=== PATIENT | female | born 1940 | race Caucasian/White ===

== ENCOUNTER 2017-01-06 23:06 | Emergency (ER) | payer MEDICARE, BC ==
[2017-01-06] MEDS ORDERED: Nitroglycerin 0.3 MG Tab.SL SL PRN (23:32)
[2017-01-06] MEDS ORDERED: LORazepam 2 MG/ML MDV IVPUSH ONE (23:33)
[2017-01-06] MEDS ORDERED: Nitroglycerin 0.4 MG Tab.SL SL ONE (23:35)
[2017-01-06] MEDS ORDERED: LORazepam 2 MG/ML MDV ONE (23:51)
[2017-01-07] MEDS ORDERED: Furosemide 40 MG/4 ML VIAL ONE (00:24)
[2017-01-07] MEDS ORDERED: Furosemide 40 MG/4 ML VIAL IVPUSH ONE (00:25)
[2017-01-07] MEDS ORDERED: Isosorbide Mononitrate 30 MG Tab.ER PO SCH (00:45)
--- NOTE | 2017-01-07 10:05 | ER ---
DATE SEEN: 01/06/2017 TIME SEEN: The patient was seen at 2315 hours. CHIEF COMPLAINT: Shortness of breath. HISTORY OF PRESENT ILLNESS: The patient lives at home with her who is an invalid. 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 She had nebs 4 times a day and used an inhaler two times a day yesterday. Has increased heart rate. She had flashes of chest discomfort. Denies cough or fever. She states she has a defect in her heart because of her PVCs. She denies swelling of her ankles. Denies thyroid problems. PAST MEDICAL HISTORY: Significant for hypertension, insulin dependent diabetes, gout. She is on anticoagulants. Has depression. The patient on milnacipran; question if she has fibromyalgia. Not had an echo of her heart for a year. Known COPD, congestive heart failure, cardiomyopathy atrial fibrillation, and type 2 diabetes. Her medications suggest she has gout, is using allopurinol daily. ALLERGIES: Oxycodone and penicillin. MEDICATIONS: 1. Allopurinol 100 mg daily. 2. Albuterol. 3. Carvedilol 25 mg b.i.d. 4. Dulcolax p.r.n. 5. Digoxin 125 mcg daily. 6. Vitamin B12. 7. Gabapentin. 8. Ezetimibe (Zetia). 9. Insulin. 10.Milnacipran (Savella) 50 mg b.i.d. (suggests fibromyalgia). 11.Mirtazapine 30 mg daily. 12.Simvastatin 80 mg daily. 13.Prednisone 20 mg b.i.d. 14.Potassium chloride 20 mEq b.i.d. 15.Valsartan 20 mg daily. 16.Torsemide 20 mg daily. 17.Sitagliptin 50 mg daily. 18.Warfarin 5 mg Saturday, Saturday, Saturday, , and Saturday, otherwise 2.5 mg Saturday and Saturday. Discussed that she gets very anxious and sometimes wonders if she is going to because she cannot , her really depends on her. She has 24 coverage for . Does not get time off. She has people come help with her house cleaning and some other chores, but does not have any day off from her caregiving activities. She has had 20 units of long-acting insulin a day and 30 units short-acting insulin noon and suppertime. Is very obese. Weighs 230 pounds. PHYSICAL EXAMINATION: VITAL SIGNS: Blood pressure 160/90, heart rate 98 and irregular, respirations 18, oxygen saturation 100%, oxygen flow rate 3, and temperature 36.9 degrees. GENERAL: The patient is mildly dyspneic and anxious. No flushing in her face. She is markedly obese, in [id number] distress. Immediate sublingual nitroglycerin given to diminish pulmonary hypertension, anxiety, and improve her coronary artery circulation. This brought her blood pressure down to 154/75, and then before departure it was 147/68. HEENT: PERRLA intact. Pharynx without abnormality. NECK: No bruits in neck. LUNGS: There are some rales, right greater than left posterior. HEART: S1, S2. No murmur. Sinus regular rhythm, 98. S1 is greater than S2. ABDOMEN: Soft. No guarding. No abdominal discomfort. No chest wall discomfort. EXTREMITIES: No linear vascular tenderness. No pedal edema. LABORATORY DATA: Stat EKG; atrial fibrillation, heart rate in the 90s, right bundle-branch block, occasional PVC, old anterior myocardial infarction with Q- waves noted in V1, V2. Chest x-ray reveals marked cardiomegaly. Transthoracic measurement is 243 cm, heart is 183 cm, well over 50% the bilateral chest diameter. No cephalization noted. Findings: 7400 white count, PMNs 70, lymphs 20, monos 6, 4% eosinophils, 13.2 hemoglobin, MCHC low at 31.4, and platelets 233,000. D-dimer qualitative was 522, not considered abnormal for age, using the rule multiplied by 10 for every 10 years of age. Complete metabolic panel is normal except for a CO2 slightly elevated at 30, GFR 49, glucose 215, sodium 141, potassium 4.2, chloride 103, BUN and creatinine ratio 20, BUN 22, and creatinine 1.1. TSH 2.2 is negative. Troponin 0.05, normal is less than 0.06. BNP is 100. ASSESSMENT: 1. Anxiety-induced increased sympathomimetic effect on the heart with coronary artery spasm and/or coronary narrowing with shortness of breath associated with mild pulmonary hypertension. 2. No clear evidence for congestive heart failure, congestive heart failure well controlled. 3. No metabolic abnormality. No negative troponin and no suggestion of myocardial infarction. The patient's status improved remarkably after the nitroglycerin was given. Her blood pressure came down. Anxiety diminished. She acknowledges she was really anxious and afraid she was going to . It is very possible that her anxiety has resulted in bronchospasm and increased pulmonary pressures and the nitroglycerin diminished that discomfort and shortness of breath that she experienced. PLAN: Tablet of 30 mg Imdur. The patient dismissed to follow up with doctor in 3 to 5 days. Trial of spironolactone to help remodel her cardiomyopathy. Currently, her congestive heart failure is very well controlled. With this, she will decrease her potassium one dose to 20 mEq orally daily and repeat BMP on return to the clinic. The patient's status dramatically improved with the nitroglycerin. She was pleased and plans to go home. Her daughter will pick her up and take her home. There is a wide pulse pressure on arrival, which was 102. This came down dramatically with the nitroglycerin with pulse pressure at that time to 79. She felt subjectively much better. I surmise the wide pulse pressure is a function of the cardiomyopathy. OTHER DIAGNOSES: 1. Atrial fibrillation. 2. Congestive heart failure, controlled. 3. Hypertension. 4. Cardiomegaly. 5. Atherosclerotic vascular disease and aortic stiffening, causing the hypertension and narrowing of the vessels. This puts her at risk for thrombosis, atherosclerotic vascular disease, and further coronary artery disease. /[id number] MICHEL/STEWART
--- NOTE | 2017-01-07 10:42 | CR ---
INDICATION: Short of breath. CHEST: An AP upright portable view of the chest was obtained 01/06/17 and compared with 08/11/16 and 02/10/16, revealing an appearance of parenchymal change infiltration at the left mid to lower lung field, which likely represents pneumonia. No definite pleural effusion was seen. Relatively poor inspiration is noted. The heart is enlarged with slightly tortuous calcified aorta. Overlying EKG leads are noted. Overlying snaps seen. IMPRESSION: 1. Findings suggest the possibility of pneumonia in the left mid to lower lung field. PA and lateral views may be helpful for confirmation as felt to be clinically necessary, with full inspiration, when clinically possible. 2. ASHD with cardiomegaly. 3. Possible COPD. 4. Exogenous obesity. MTDD
[2017-01-07 22:29] VITALS: BP 121/66
== END 2017-01-07 02:00 | disposition home or self-care (01) ==
LOC: FB.ED 23:06
DX: I25.111 Atherosclerotic heart disease of native coronary artery with angina pectoris with documented spasm (principal); I11.0 Hypertensive heart disease with heart failure; I50.9 Heart failure, unspecified; I48.2 Chronic atrial fibrillation; Z79.01 Long term (current) use of anticoagulants; J44.9 Chronic obstructive pulmonary disease, unspecified; E11.9 Type 2 diabetes mellitus without complications; Z79.4 Long term (current) use of insulin; Z79.899 Other long term (current) drug therapy; F32.9 Major depressive disorder, single episode, unspecified; Z88.5 Allergy status to narcotic agent; Z88.0 Allergy status to penicillin
CPT/HCPCS: 36415; 71010; 80053; 83605; 83880; 84443; 84484; 85025; 85379; A9270; J1940; J2060; 96374; 96375; 99284; 99285

== ENCOUNTER 2017-01-27 01:31 | Emergency (ER) | payer MEDICARE, BC, MEDICAID ==
[2017-01-27] MEDS ORDERED: Albuterol/Ipratropium 3.0-0.5 MG/3 ML Neb Soln NEB ONE (01:52)
--- NOTE | 2017-01-27 02:04 | EDM.PDOC ---
ED HISTORY OF PRESENT ILLNESS - General Chief Complaint: Respiratory Problem Stated Complaint: COUGH, WHEEZING Time Seen by Provider: 01/27/17 01:58 Source: Reports: Patient, Family - History of Present Illness INITIAL COMMENTS - FREE TEXT/NARRATIVE: 76 years old w f morbid obese, come to the ed due to worsening of sob since last Saturday. She was told at one time she has an enlarged heart. She noticed her feet are swelling up. She is an a water pill daily. She can walk only short distances. No CP no N/V/D or other medical acute issues. Symptom Onset Date: 01/24/17 Symptom Onset Time: 07:00 Timing/Duration: Reports: Day(s): Severity: moderate Location, General: Reports: chest Improves with: Reports: Medication Worsens with: Reports: Movement Associated Symptoms: Reports: denies other symptoms - Related Data Allergies/ADRs: Allergies Allergy/AdvReac Type Severity Reaction Status Date / Time oxycodone [Oxycodone] Allergy Hives Verified 01/27/17 01:42 Penicillins Allergy Hives Verified 01/27/17 01:42 phenylephrine Allergy Cannot Verified 01/27/17 01:42 Remember tropicamide Allergy Hives Verified 01/27/17 01:42 Home Meds: Home Meds Acetaminophen [Acetaminophen Extra Strength] 1,000 mg PO BID PRN 03/03/14 [ History] Allopurinol [Zyloprim] 100 mg PO DAILY 03/03/14 [History] Cyanocobalamin (Vitamin B12) [Vitamin B12] 1,000 mcg IM Q30D 03/03/14 [History] Ezetimibe [Zetia] 10 mg PO BEDTIME 03/03/14 [History] Gabapentin 900 mg PO BEDTIME 03/03/14 [History] Milnacipran [Savella] 50 mg PO BID 03/03/14 [History] Omeprazole 20 mg PO ACBRK 03/03/14 [History] Potassium Chloride 20 meq PO BID 03/03/14 [History] Simvastatin 80 mg PO BEDTIME 03/03/14 [History] SitaGLIPtin [Januvia] 50 mg PO DAILY 03/03/14 [History] Torsemide [Demadex] 20 mg PO DAILY 03/03/14 [History] Warfarin [Coumadin] 2.5 mg PO TUFR 03/03/14 [History] Bisacodyl [Dulcolax] 15 mg PO BEDTIME 05/19/14 [History] Mirtazapine [Remeron] 15 mg PO BEDTIME 05/19/14 [History] Nitroglycerin [Nitrostat] 0.4 mg SL Q5M PRN 05/19/14 [History] glipiZIDE [Glipizide] 5 mg PO BIDMEALS 12/14/14 [History] Carvedilol [Coreg] 25 mg PO BID 12/28/14 [History] Insulin Aspart [NovoLOG] 30 unit SQ BIDMEALS 12/28/14 [History] Insulin Aspart [Novolog Flexpen] 10 unit SQ ASDIRECTED 12/28/14 [History] Insulin Detemir [Levemir] 35 units SQ BID 12/28/14 [History] Warfarin [Coumadin] 5 mg PO SUMOWETHSA 12/29/14 [History] Albuterol [Proventil Neb Soln] 2.5 mg IH QID PRN 02/10/16 [History] Docusate Sodium 100 mg PO BEDTIME 02/10/16 [History] Valsartan 20 mg PO DAILY 02/10/16 [History] diphenhydrAMINE [Benadryl] 25 mg PO Q6H PRN 02/10/16 [History] Spironolactone [Aldactone] 25 mg PO DAILY #10 tablet 01/07/17 [Rx] Past Medical History HEENT History: Reports: Cataract, Impaired vision, Other (see below) Other HEENT History: States she has an eye disease balled "BEST". It affects her vision bilat, especially in her right eye. Is blind R eye. Cardiovascular History: Reports: Afib, Heart Failure, High cholesterol Respiratory History: Reports: Asthma, Pneumonia, recurrent Other Respiratory History: States she had pneumonia twice last year. 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 Hematologic History: Reports: Anemia, B12 deficiency - Past Surgical History HEENT Surgical History: Reports: Cataract surgery Other HEENT Surgeries/Procedures: L cataract surgery Cardiovascular Surgical History: Reports: Cardiac Ablation, Vascular surgery GI Surgical History: Reports: Appendectomy, Cholecystectomy Female Surgical History: Reports: Hysterectomy, Salpingo-oophorectomy, Tubal ligation Other Female Surgeries/Procedures: bladder repair, Neurological Surgical History: Reports: Lumbar spine Musculoskeletal Surgical History: Reports: Knee replacement, Shoulder surgery, Other (see below) Other Musculoskeletal Surgeries/Procedures:: States she has rods placed in her back, R knee replacement, R shoulder/rotator cuff, 3 L foot surgeries, R trigger finger surg x 3, 2 back surgeries. Social & Family History - Tobacco Use Smoking Status *Q: Never Smoker Second Hand Smoke Exposure: No - Caffeine Use Caffeine Use: Reports: Soda - Alcohol Use Days Per Week of Alcohol Use: 0 - Recreational Drug Use Recreational Drug Use: No - Living Situation & Occupation Living situation: Reports: ED ROS GENERAL - Review of Systems Review Of Systems: See Below Constitutional: Reports: no symptoms HEENT: Reports: No symptoms Respiratory: Reports: Shortness of Breath Cardiovascular: Reports: No symptoms Endocrine: Reports: no symptoms GI/Abdominal: Reports: No symptoms : Reports: no symptoms Musculoskeletal: Reports: no symptoms Skin: Reports: no symptoms Neurological: Reports: No Symptoms Psychiatric: Reports: No symptoms Hematologic/Lymphatic: Reports: no symptoms Immunologic: Reports: no symptoms ED EXAM, GENERAL - Physical Exam Exam: See Below Exam Limited By: Respiratory distress General Appearance: alert, WD/WN, moderate distress, obese Eye Exam: bilateral eye: normal inspection Ears: normal external exam Ear Exam: bilateral ear: auricle normal Nose: normal inspection, normal mucosa, no blood Throat/Mouth: Normal inspection, Normal lips, Normal gums Head: atraumatic, normocephalic Neck: normal inspection, supple, non-tender, full range of motion Respiratory/Chest: respiratory distress, wheezing, prolonged expiration Cardiovascular: normal peripheral pulses, irregularly irregular Peripheral Pulses: 2+: femoral (L), femoral (R) GI/Abdominal: normal bowel sounds, soft, non tender, no organomegaly (Female) Exam: Deferred Rectal (Female) Exam: Deferred Back Exam: normal inspection, full range of motion Extremities: normal inspection, normal range of motion, non-tender, no pedal edema, normal capillary refill Neurological: alert, oriented, CN II-XII intact, normal cognition, normal gait, normal reflexes, no motor/sensory deficits Psychiatric: normal affect, normal mood Skin Exam: Warm, Dry, Intact, Normal color, No rash Lymphatic: no adenopathy Course - Vital Signs Text/Narrative:: 76 years old w f morbid obese, come to the ed due to worsening of sob since last Saturday. She was told at one time she has an enlarged heart. She noticed her feet are swelling up. She is an a water pill daily. She can walk only short distances. No CP no N/V/D or other medical acute issues. PE: Expir wheezes Labs: WBC WNL, BNP 157 INR 3.4 CXR: NL HS no acute changes Impression: Asthma exacerbation Tx: Soraida Reexam: Improved Plan: D/C with instructions Last Recorded V/S: Last Vital Signs Temp 37.1 C 01/27/17 01:58 Pulse 91 01/27/17 01:58 Resp 26 H 01/27/17 01:58 BP 145/83 H 01/27/17 01:58 Pulse Ox 92 L 01/27/17 01:58 - Orders/Labs/Meds Orders: Active Orders 24 hr Category Date Time Status RT Aerosol Therapy [RC] ASDIRECTED Care 01/27/17 01:53 Active Chest 1V Frontal [CR] Stat Exams 01/27/17 01:52 Taken Labs: Laboratory Tests 01/27/17 01/27/17 01/27/17 Range/Units 02:00 02:05 02:05 WBC 10.6 (4.5-12.0) X10-3/uL RBC 4.54 (3.23-5.20) x10(6)uL Hgb 13.2 (11.5-15.5) g/dL Hct 40.0 (30.0-51.3) % MCV 88.1 (80-96) fL MCH 29.1 (27.7-33.6) pg MCHC 33.1 (32.2-35.4) g/dL RDW 14.3 (11.5-15.5) % Plt Count 215 (125-369) X10(3)uL MPV 8.6 (7.4-10.4) fL Neut % (Auto) 79.8 (46-82) % Lymph % (Auto) 10.6 L (13-37) % [place] % (Auto) 7.2 (4-12) % Eos % (Auto) 2 (1.0-5.0) % Baso % (Auto) 0 (0-2) % Neut # (Auto) 8.5 H (1.6-8.3) # Lymph # (Auto) 1.1 (0.6-5.0) # [place] # (Auto) 0.8 (0.0-1.3) # Eos # (Auto) 0.2 (0.0-0.8) # Baso # (Auto) 0.0 (0.0-0.2) # PT 34.2 H (8.7-11.1) INR 3.31 H (0.89-1.13) Sodium (135-145) mmol/L Potassium (3.5-5.3) mmol/L Chloride (100-110) mmol/L Carbon Dioxide (23-29) mmol/L BUN (8-23) mg/dL Creatinine (0.6-1.3) mg/dL Est Cr Clr Drug Dosing mL/min Estimated GFR (MDRD) (>60) BUN/Creatinine Ratio (9-20) Glucose (80-116) mg/dL Calcium (8.6-10.2) mg/dL Troponin I (0.02-0.06) NG/ML B-Natriuretic Peptide (0-100) pg/mL Urine Color Yellow (YELLOW) Urine Appearance Clear (CLEAR) Urine pH 5.0 (5.0-6.5) Ur Specific Logan 1.010 (1.010-1.025) Urine Protein Negative (NEGATIVE) mg/dL Urine Glucose (UA) Normal (NEGATIVE) mg/dL Urine Ketones Negative (NEGATIVE) mg/dL Urine Occult Blood Negative (NEGATIVE) Urine Nitrite Negative (NEGATIVE) Urine Bilirubin Negative (NEGATIVE) Urine Urobilinogen Normal (NEGATIVE) mg/dL Ur Leukocyte Esterase Negative (NEGATIVE) Urine RBC 0-5 (0) Urine WBC 0-5 (0) Ur Squamous Epith Cells Not seen (NS,R,O) Urine Bacteria Rare H (NS) 01/27/17 01/27/17 01/27/17 Range/Units 02:05 02:05 02:05 WBC (4.5-12.0) X10-3/uL RBC (3.23-5.20) x10(6)uL Hgb (11.5-15.5) g/dL Hct (30.0-51.3) % MCV (80-96) fL MCH (27.7-33.6) pg MCHC (32.2-35.4) g/dL RDW (11.5-15.5) % Plt Count (125-369) X10(3)uL MPV (7.4-10.4) fL Neut % (Auto) (46-82) % Lymph % (Auto) (13-37) % [place] % (Auto) (4-12) % Eos % (Auto) (1.0-5.0) % Baso % (Auto) (0-2) % Neut # (Auto) (1.6-8.3) # Lymph # (Auto) (0.6-5.0) # [place] # (Auto) (0.0-1.3) # Eos # (Auto) (0.0-0.8) # Baso # (Auto) (0.0-0.2) # PT (8.7-11.1) INR (0.89-1.13) Sodium 141 (135-145) mmol/L Potassium 3.9 (3.5-5.3) mmol/L Chloride 105 (100-110) mmol/L Carbon Dioxide 27 (23-29) mmol/L BUN 32 H D (8-23) mg/dL Creatinine 1.3 (0.6-1.3) mg/dL Est Cr Clr Drug Dosing 27.27 mL/min Estimated GFR (MDRD) 40 L (>60) BUN/Creatinine Ratio 24.6 H (9-20) Glucose 130 H D (80-116) mg/dL Calcium 10.0 (8.6-10.2) mg/dL Troponin I 0.07 H (0.02-0.06) NG/ML B-Natriuretic Peptide 117 H (0-100) pg/mL Urine Color (YELLOW) Urine Appearance (CLEAR) Urine pH (5.0-6.5) Ur Specific Logan (1.010-1.025) Urine Protein (NEGATIVE) mg/dL Urine Glucose (UA) (NEGATIVE) mg/dL Urine Ketones (NEGATIVE) mg/dL Urine Occult Blood (NEGATIVE) Urine Nitrite (NEGATIVE) Urine Bilirubin (NEGATIVE) Urine Urobilinogen (NEGATIVE) mg/dL Ur Leukocyte Esterase (NEGATIVE) Urine RBC (0) Urine WBC (0) Ur Squamous Epith Cells (NS,R,O) Urine Bacteria (NS) Meds: Medications Discontinued Medications Generic Name Dose Route Start Last Admin Trade Name Freq PRN Reason Stop Dose Admin Albuterol/Ipratropium 3 ml 01/27/17 01:52 01/27/17 02:03 Duoneb 3.0-0.5 Mg/3 Ml NEB 01/27/17 01:53 3 ml ONETIME ONE Administration Departure - Departure Time of Disposition: 03:08 Disposition: Home, Self-Care 01 Condition: good Clinical Impression: Asthma attack, Elevated INR (international normalized ratio) Instructions: Shortness of Breath, [id number] Referrals: Guru Tucker MD [Primary Care Provider] - Forms: ED Department Discharge Additional Instructions: Please cont your current meds, please recheck your INR in 1 week. Please come back if our symptoms get worse acutely. - My Orders Last 24 Hours: My Active Orders 01/27/17 01:52 Chest 1V Frontal [CR] Stat 01/27/17 01:53 RT Aerosol Therapy [RC] ASDIRECTED - Assessment/Plan Last 24 Hours: My Active Orders 01/27/17 01:52 Chest 1V Frontal [CR] Stat 01/27/17 01:53 RT Aerosol Therapy [RC] ASDIRECTED
[2017-01-27 03:22] VITALS: BP 140/78
--- NOTE | 2017-01-28 11:40 | CR ---
INDICATION: Short of breath. CHEST: A single PA view of the chest was obtained upright 01/27/2017 and compared with 01/06/2017 and 08/12/2016, again revealing the heart to be enlarged with slightly tortuous aorta calcified in the arch area. A moderate dextroconvex scoliosis of the thoracic spine is noted with moderately severe hypertrophic degenerative changes and evidence of disk disease in the mid thoracic spine especially. The lungs are somewhat hyperaerated, but show no gross consolidating pneumonia. There may be some linear atelectasis in the left lower middle lung field and lung base. Lungs may be somewhat hyperaerated. Diaphragms, however, were not flattened. Evidence of exogenous obesity is noted. No definite evidence of CHF is seen. IMPRESSION: 1. The study is somewhat limited by over penetration. Suggest full inspiration PA and lateral views of the chest with proper density of the lungs for further evaluation when clinically possible. 2. ASHD with cardiomegaly. 3. Possible COPD. 4. Cannot exclude atelectasis or even minimal patchy bronchopneumonia at the left lower middle lung field and lung base. MTDD
== END 2017-01-27 03:15 | disposition home or self-care (01) ==
LOC: FB.ED 01:31
DX: J45.909 Unspecified asthma, uncomplicated (principal); E78.00 Pure hypercholesterolemia, unspecified; I50.9 Heart failure, unspecified; K21.9 Gastro-esophageal reflux disease without esophagitis; F41.9 Anxiety disorder, unspecified; F32.9 Major depressive disorder, single episode, unspecified; E11.9 Type 2 diabetes mellitus without complications; D64.9 Anemia, unspecified; Z90.49 Acquired absence of other specified parts of digestive tract; Z88.0 Allergy status to penicillin; Z88.8 Allergy status to other drugs, medicaments and biological substances; Z79.899 Other long term (current) drug therapy
CPT/HCPCS: 36415; 71010; 80048; 81001; 83880; 84484; 85025; 85610; 94640; 99285; J7620; 99284

== ENCOUNTER 2017-02-20 13:40 | Emergency (ER) | payer MEDICARE, BC, MEDICAID ==
--- NOTE | 2017-02-20 13:59 | EDM.PDOC ---
ED HISTORY OF PRESENT ILLNESS - General Chief Complaint: Cardiovascular Problem Stated Complaint: SOB Time Seen by Provider: 02/20/17 13:45 Source: Reports: Patient, EMS, EMS notes reviewed, Old records History Limitations: Reports: No limitations - History of Present Illness INITIAL COMMENTS - FREE TEXT/NARRATIVE: Marion comes to [facility] ED by EMS from [facility] with sxs of progressive SOB over the past 3 weeks, seen on January 27 presumed exacerbation of COPD/ asthma, and managed in the ED with a DuoNeb. She was seen a week later with similar sxs, and dispensed a Z-Michelet for similar sxs. She reported some clearing of secretions, but typically has productive coughing daily. SOB has not improved , and was seen in Clinic today and diagnosed with CHF. She was transferred to the ED for management. Of interest, an echocardiogram on January 22 noted EF 45- 50% with some concentric enlargement of the LV, and limited sclerotic changes of valves. Dyskinesis was not detected. Her principle complaint remains SOB primarily with exertion, no visible swelling of LEs, no orthopnea, PNA or PND. She does not use home 02 therapy. She has been med compliant with therapy. She is a Type II DM on insulin, with known hx of CKD and COPD. - Related Data Allergies/ADRs: Allergies Allergy/AdvReac Type Severity Reaction Status Date / Time oxycodone [Oxycodone] Allergy Hives Verified 02/20/17 13:56 Penicillins Allergy Hives Verified 02/20/17 13:56 phenylephrine Allergy Cannot Verified 02/20/17 13:56 Remember tropicamide Allergy Hives Verified 02/20/17 13:56 Home Meds: Home Meds Acetaminophen [Acetaminophen Extra Strength] 1,000 mg PO BID PRN 03/03/14 [ History] Allopurinol [Zyloprim] 100 mg PO DAILY 03/03/14 [History] Cyanocobalamin (Vitamin B12) [Vitamin B12] 1,000 mcg IM Q30D 03/03/14 [History] Ezetimibe [Zetia] 10 mg PO BEDTIME 03/03/14 [History] Gabapentin 900 mg PO BEDTIME 03/03/14 [History] Milnacipran [Savella] 50 mg PO BID 03/03/14 [History] Omeprazole 20 mg PO .EVERY OTHER DAY 03/03/14 [History] Potassium Chloride 20 meq PO BID 03/03/14 [History] Simvastatin 80 mg PO BEDTIME 03/03/14 [History] SitaGLIPtin [Januvia] 50 mg PO DAILY 03/03/14 [History] Torsemide [Demadex] 1.5 tab PO DAILY 03/03/14 [History] Warfarin [Coumadin] 2.5 mg PO .MON,WED,THUR,SAT,BRAVO 03/03/14 [History] Bisacodyl [Dulcolax] 15 mg PO BEDTIME 05/19/14 [History] Mirtazapine [Remeron] 15 mg PO BEDTIME 05/19/14 [History] Nitroglycerin [Nitrostat] 0.4 mg SL Q5M PRN 05/19/14 [History] glipiZIDE [Glipizide] 5 mg PO BIDMEALS 12/14/14 [History] Carvedilol [Coreg] 25 mg PO BID 12/28/14 [History] Insulin Aspart [NovoLOG] 30 unit SQ BIDMEALS 12/28/14 [History] Insulin Detemir [Levemir] 35 units SQ BID 12/28/14 [History] Warfarin [Coumadin] 5 mg PO .TU,Sat12/29/14 [History] Albuterol [Proventil Neb Soln] 2.5 mg IH QID PRN 02/10/16 [History] Docusate Sodium 100 mg PO BEDTIME 02/10/16 [History] Valsartan 20 mg PO DAILY 02/10/16 [History] diphenhydrAMINE [Benadryl] 25 mg PO Q6H PRN 02/10/16 [History] Spironolactone [Aldactone] 25 mg PO DAILY #10 tablet 01/07/17 [Rx] Diclofenac Sodium [Voltaren 1% Gel] 4 g TOP TID 02/20/17 [History] Digoxin 125 mcg PO .Q48H 02/20/17 [History] Isosorbide Mononitrate [Imdur] 30 mg PO DAILY 02/20/17 [History] Past Medical History HEENT History: Reports: Cataract, Impaired vision, Other (see below) Other HEENT History: States she has an eye disease balled "BEST". It affects her vision bilat, especially in her right eye. Is blind R eye. Cardiovascular History: Reports: Afib, Heart Failure, High cholesterol Respiratory History: Reports: Asthma, Pneumonia, recurrent Other Respiratory History: States she had pneumonia twice last year. Gastrointestinal History: Reports: Cholelithiasis, Chronic constipation, GERD, PUD Genitourinary History: Reports: Renal disease THEATER USHER History: Reports: Musculoskeletal History: Reports: Arthritis, Back pain, chronic, Fibromyalgia Neurological History: Reports: Neuropathy, diabetic Psychiatric History: Reports: Anxiety, Depression Endocrine/Metabolic History: Reports: Diabetes, type II, Obesity/BMI 30+ Other Endocrine/Metabolic History: Takes insulin. Hematologic History: Reports: Anemia, B12 deficiency - Past Surgical History HEENT Surgical History: Reports: Cataract surgery Other HEENT Surgeries/Procedures: L cataract surgery Cardiovascular Surgical History: Reports: Cardiac Ablation, Vascular surgery GI Surgical History: Reports: Appendectomy, Cholecystectomy Female Surgical History: Reports: Hysterectomy, Salpingo-oophorectomy, Tubal ligation Other Female Surgeries/Procedures: bladder repair, Neurological Surgical History: Reports: Lumbar spine Musculoskeletal Surgical History: Reports: Knee replacement, Shoulder surgery, Other (see below) Other Musculoskeletal Surgeries/Procedures:: States she has rods placed in her back, R knee replacement, R shoulder/rotator cuff, 3 L foot surgeries, R trigger finger surg x 3, 2 back surgeries. Social & Family History - Tobacco Use Smoking Status *Q: Never Smoker Second Hand Smoke Exposure: No - Caffeine Use Caffeine Use: Reports: Soda - Alcohol Use Days Per Week of Alcohol Use: 0 - Recreational Drug Use Recreational Drug Use: No - Living Situation & Occupation Living situation: Reports: ED ROS GENERAL - Review of Systems Review Of Systems: See Below Constitutional: Reports: malaise, fatigue HEENT: Reports: No symptoms Respiratory: Reports: Shortness of Breath, Sputum Cardiovascular: Reports: Dyspnea on exertion Endocrine: Reports: no symptoms GI/Abdominal: Reports: No symptoms : Reports: no symptoms Musculoskeletal: Reports: back pain, leg pain, joint pain (hip pain from fibromyalgia) Skin: Reports: no symptoms Neurological: Reports: Tingling Psychiatric: Reports: No symptoms Hematologic/Lymphatic: Reports: other (pernicious anemia) Immunologic: Reports: no symptoms ED EXAM, GENERAL - Physical Exam Exam: See Below Exam Limited By: No limitations General Appearance: alert, WD/WN, no apparent distress, obese Eye Exam: bilateral eye: normal inspection Ears: normal external exam Ear Exam: bilateral ear: auricle normal, canal normal, TM normal Nose: normal inspection Throat/Mouth: Normal inspection, Normal lips, Normal teeth, Normal gums, Normal oropharynx, Normal voice, No airway compromise Head: atraumatic, normocephalic Neck: normal inspection, supple, non-tender, full range of motion, other (no JVD ) Respiratory/Chest: no respiratory distress, no accessory muscle use, chest non- tender, decreased breath sounds, rales (L lung contreras), wheezing, prolonged expiration Cardiovascular: no edema, no gallop, no JVD, no murmur, no rub, irregularly irregular GI/Abdominal: normal bowel sounds, soft, non tender, no organomegaly, no distention, no abnormal bruit, no mass (Female) Exam: Normal external exam Rectal (Female) Exam: Deferred Back Exam: normal inspection Extremities: normal inspection Neurological: alert, oriented, CN II-XII intact, normal cognition Psychiatric: normal affect, normal mood Skin Exam: Warm, Dry, Intact, Normal color Lymphatic: no adenopathy Course - Vital Signs Text/Narrative:: Following assessment at the [facility] ED, an IV access was obtained in the LUE, youth nutritional monitor attached, and a rhythm strip was obtained noting AF, VR 80. A 12 lead ekg noted AF; a review of chest x ray from Clinic with Dr Mack noted some cardiac enlargement with cephalization of veins suggestive of CHF, possible infiltrate of L lung; CBC noting Hgb 13.2 gm, WBC 6,300, plts normal; PT 20.3/INR 1.98; Na 139, K 4.1; BUN 28, Cr 1.5, GFR 23.63; nonFBS 226, Ca 10.4 ; BNP 101 Last Recorded V/S: Last Vital Signs Temp 36.8 C 02/20/17 13:57 Pulse 78 02/20/17 13:57 Resp 20 02/20/17 13:57 BP 160/89 H 02/20/17 13:57 Pulse Ox 95 02/20/17 13:57 - Orders/Labs/Meds Orders: Active Orders 24 hr Category Date Time Status EKG Documentation Completion [RC] ASDIRECTED Care 02/20/17 14:07 Active Sodium Chloride 0.9% [Saline Flush] Med 02/20/17 14:06 Active 10 ml FLUSH ASDIRECTED PRN Peripheral IV Insertion Adult [OM.PC] Routine Oth 02/20/17 14:06 Ordered EKG 12 Lead [EK] Routine Ther 02/20/17 14:06 Ordered Medication Orders Sodium Chloride (Saline Flush) 10 ml FLUSH ASDIRECTED PRN PRN Reason: Keep Vein Open Labs: Laboratory Tests 02/20/17 02/20/17 02/20/17 Range/Units 14:25 14:25 14:25 WBC 6.3 (4.5-12.0) X10-3/uL RBC 4.54 (3.23-5.20) x10(6)uL Hgb 13.2 (11.5-15.5) g/dL Hct 40.1 (30.0-51.3) % MCV 88.3 (80-96) fL MCH 29.1 (27.7-33.6) pg MCHC 33.0 (32.2-35.4) g/dL RDW 14.5 (11.5-15.5) % Plt Count 203 (125-369) X10(3)uL MPV 8.3 (7.4-10.4) fL Add Manual Diff Yes Neutrophils % (Manual) 67 (46-82) % Band Neutrophils % 2 (0-6) % Lymphocytes % (Manual) 17 (13-37) % Monocytes % (Manual) 10 (4-12) % Eosinophils % (Manual) 4 (0-5) % PT 20.3 H (8.7-11.1) INR 1.98 H (0.89-1.13) Sodium 139 (135-145) mmol/L Potassium 4.1 (3.5-5.3) mmol/L Chloride 102 (100-110) mmol/L Carbon Dioxide 27 (23-29) mmol/L BUN 28 H (8-23) mg/dL Creatinine 1.5 H (0.6-1.3) mg/dL Est Cr Clr Drug Dosing 23.63 mL/min Estimated GFR (MDRD) 34 L (>60) BUN/Creatinine Ratio 18.7 (9-20) Glucose 226 H D (80-116) mg/dL Calcium 10.4 H (8.6-10.2) mg/dL Magnesium 1.9 (1.8-2.5) mg/dL Total Bilirubin 0.7 (0.1-1.3) mg/dL AST 22 (5-27) IU/L ALT 14 (14-26) IU/L Alkaline Phosphatase 93 (56-112) IU/L Troponin I (0.02-0.06) NG/ML B-Natriuretic Peptide (0-100) pg/mL Total Protein 7.3 (6.0-8.0) g/dL Albumin 4.0 (3.2-4.6) g/dL Globulin 3.3 g/dL Albumin/Globulin Ratio 1.2 Urine Color (YELLOW) Urine Appearance (CLEAR) Urine pH (5.0-6.5) Ur Specific [place] (1.010-1.025) Urine Protein (NEGATIVE) mg/dL Urine Glucose (UA) (NEGATIVE) mg/dL Urine Ketones (NEGATIVE) mg/dL Urine Occult Blood (NEGATIVE) Urine Nitrite (NEGATIVE) Urine Bilirubin (NEGATIVE) Urine Urobilinogen (NEGATIVE) mg/dL Ur Leukocyte Esterase (NEGATIVE) Urine RBC (0) Urine WBC (0) Ur Squamous Epith Cells (NS,R,O) Urine Bacteria (NS) 02/20/17 02/20/17 02/20/17 Range/Units 14:25 14:25 15:18 WBC (4.5-12.0) X10-3/uL RBC (3.23-5.20) x10(6)uL Hgb (11.5-15.5) g/dL Hct (30.0-51.3) % MCV (80-96) fL MCH (27.7-33.6) pg MCHC (32.2-35.4) g/dL RDW (11.5-15.5) % Plt Count (125-369) X10(3)uL MPV (7.4-10.4) fL Add Manual Diff Neutrophils % (Manual) (46-82) % Band Neutrophils % (0-6) % Lymphocytes % (Manual) (13-37) % Monocytes % (Manual) (4-12) % Eosinophils % (Manual) (0-5) % PT (8.7-11.1) INR (0.89-1.13) Sodium (135-145) mmol/L Potassium (3.5-5.3) mmol/L Chloride (100-110) mmol/L Carbon Dioxide (23-29) mmol/L BUN (8-23) mg/dL Creatinine (0.6-1.3) mg/dL Est Cr Clr Drug Dosing mL/min Estimated GFR (MDRD) (>60) BUN/Creatinine Ratio (9-20) Glucose (80-116) mg/dL Calcium (8.6-10.2) mg/dL Magnesium (1.8-2.5) mg/dL Total Bilirubin (0.1-1.3) mg/dL AST (5-27) IU/L ALT (14-26) IU/L Alkaline Phosphatase (56-112) IU/L Troponin I 0.05 (0.02-0.06) NG/ML B-Natriuretic Peptide 101 H (0-100) pg/mL Total Protein (6.0-8.0) g/dL Albumin (3.2-4.6) g/dL Globulin g/dL Albumin/Globulin Ratio Urine Color Yellow (YELLOW) Urine Appearance Clear (CLEAR) Urine pH 5.0 (5.0-6.5) Ur Specific [place] 1.015 (1.010-1.025) Urine Protein Negative (NEGATIVE) mg/dL Urine Glucose (UA) 250 H (NEGATIVE) mg/dL Urine Ketones Negative (NEGATIVE) mg/dL Urine Occult Blood Negative (NEGATIVE) Urine Nitrite Negative (NEGATIVE) Urine Bilirubin Negative (NEGATIVE) Urine Urobilinogen Normal (NEGATIVE) mg/dL Ur Leukocyte Esterase Negative (NEGATIVE) Urine RBC 0-5 (0) Urine WBC 0-5 (0) Ur Squamous Epith Cells Few H (NS,R,O) Urine Bacteria Rare H (NS) Meds: Medications Generic Name Dose Route Start Last Admin Trade Name Freq PRN Reason Stop Dose Admin Sodium Chloride 10 ml 02/20/17 14:06 Saline Flush FLUSH ASDIRECTED PRN Keep Vein Open Departure - Departure Time of Disposition: 16:00 Disposition: Home, Self-Care 01 Condition: fair Clinical Impression: Congestive heart failure Qualifiers: Congestive heart failure type: unspecified congestive heart failure type Congestive heart failure chronicity: unspecified congestive heart failure chronicity Qualified Code(s): I50.9 - Heart failure, unspecified - Problem List & Annotations (1) Congestive heart failure SNOMED Code(s): 24039699 Code(s): I50.9 - HEART FAILURE, UNSPECIFIED Status: Acute Current Visit: Yes Annotation/Comment:: Marion has chronic CHF, and needs follow up with Dr Steele for Dr Poole, attending media production operator. Her BNP has improved from 117 to 101 since January 22. An appt was arranged for March 04 at 8:30 am. She will keep same meds. Qualifiers: Congestive heart failure type: unspecified congestive heart failure type Congestive heart failure chronicity: unspecified congestive heart failure chronicity Qualified Code(s): I50.9 - Heart failure, unspecified - Problem List Review Problem List Initiated/Reviewed/Updated: Yes - My Orders Last 24 Hours: My Active Orders 02/20/17 14:06 Sodium Chloride 0.9% [Saline Flush] 10 ml FLUSH ASDIRECTED PRN Peripheral IV Insertion Adult [OM.PC] Routine EKG 12 Lead [EK] Routine 02/20/17 14:07 EKG Documentation Completion [RC] ASDIRECTED - Assessment/Plan Last 24 Hours: My Active Orders 02/20/17 14:06 Sodium Chloride 0.9% [Saline Flush] 10 ml FLUSH ASDIRECTED PRN Peripheral IV Insertion Adult [OM.PC] Routine EKG 12 Lead [EK] Routine 02/20/17 14:07 EKG Documentation Completion [RC] ASDIRECTED Assessment:: Keep appt with media production operator on March 04. Follow up with PCP or ED if sxs escalate.
[2017-02-20 14:06] VITALS: BP 160/89
[2017-02-20] MEDS ORDERED: Sodium Chloride 0.9% 10 ML Syringe FLUSH PRN (14:06)
== END 2017-02-20 16:15 | disposition home or self-care (01) ==
LOC: FB.ED 13:40
DX: I50.9 Heart failure, unspecified (principal); I48.91 Unspecified atrial fibrillation; E78.00 Pure hypercholesterolemia, unspecified; J45.909 Unspecified asthma, uncomplicated; Z87.01 Personal history of pneumonia (recurrent); M19.90 Unspecified osteoarthritis, unspecified site; F41.9 Anxiety disorder, unspecified; F32.9 Major depressive disorder, single episode, unspecified; E66.9 Obesity, unspecified; E11.40 Type 2 diabetes mellitus with diabetic neuropathy, unspecified; Z98.41 Cataract extraction status, right eye; Z90.49 Acquired absence of other specified parts of digestive tract; Z98.51 Tubal ligation status; Z79.4 Long term (current) use of insulin; Z79.01 Long term (current) use of anticoagulants; Z79.899 Other long term (current) drug therapy; Z86.2 Personal history of diseases of the blood and blood-forming organs and certain disorders involving the immune mechanism; Z88.0 Allergy status to penicillin; Z88.5 Allergy status to narcotic agent; Z88.8 Allergy status to other drugs, medicaments and biological substances
CPT/HCPCS: 36415; 80053; 81001; 83735; 83880; 84484; 85025; 85610; 93005; 99284; 99285

== ENCOUNTER 2017-07-28 22:27 | Inpatient (IN) | payer MEDICARE, MEDICAID, OTHER ==
[2017-07-28] MEDS ORDERED: Albuterol/Ipratropium 3.0-0.5 MG/3 ML Neb Soln NEB ONE (22:52)
[2017-07-28] MEDS ORDERED: Sodium Chloride 0.9% 1,000 ML IV ONE (23:45)
[2017-07-28] MEDS ORDERED: methylPREDNISolone Sodium Succinate 125 MG/2 ML SDV ONE (23:45)
[2017-07-29] MEDS ORDERED: Albuterol/Ipratropium 3.0-0.5 MG/3 ML Neb Soln ONE (01:16)
[2017-07-29] MEDS: Sodium Chloride 0.9% 1,000 ML IV SCH ×3 (03:30→21:39)
[2017-07-29] MEDS ORDERED: Azithromycin 500 MG Vial ONE (04:56)
[2017-07-29] MEDS: Azithromycin 500 MG in Sodium Chloride 0.9% 250 ML IV SCH (05:22)
[2017-07-29] MEDS: Albuterol/Ipratropium 3.0-0.5 MG/3 ML Neb Soln NEB PRN ×4 (07:31→20:13)
[2017-07-29] MEDS ORDERED: predniSONE 20 MG Tab PO SCH (08:00)
[2017-07-29] MEDS ORDERED: FLU Vacc QS 2017-18 (36mos UP)/PF 60 MCG/0.5 ML Syringe IM ONE (08:15)
[2017-07-29] MEDS: Terbutaline 1 MG/ML SDV SUBCUT SCH ×2 (08:24→08:33)
[2017-07-29] MEDS ORDERED: Iopamidol 755 Mg/ML 100 ML Bottle IV ONE (08:55)
[2017-07-29] MEDS ORDERED: Warfarin Sliding Scale PO SCH (09:00)
[2017-07-29] MEDS: Insulin Aspart 100 Units/ML 3 ML Pen SUBCUT SCH ×6 (09:20→22:46)
[2017-07-29] MEDS ORDERED: Torsemide 20 MG Tab PO PRN (10:01)
[2017-07-29] MEDS ORDERED: Insulin Detemir 100 Units/ML 3 ML Pen SUBCUT SCH (10:30)
[2017-07-29] MEDS: Valsartan 40 MG Tab PO SCH (11:22)
[2017-07-29] MEDS: Carvedilol 25 MG Tab PO SCH ×2 (11:23→20:54)
[2017-07-29] MEDS: Allopurinol 100 MG Tab PO SCH (11:24)
[2017-07-29] MEDS: glipiZIDE 5 MG Tab PO SCH ×2 (11:24→18:03)
[2017-07-29] MEDS: Spironolactone 25 MG Tab PO SCH (11:24)
[2017-07-29] MEDS: Torsemide 20 MG Tab PO SCH (11:24)
[2017-07-29] MEDS: Aspirin 81 MG Tab.EC PO SCH (11:24)
[2017-07-29] MEDS: Gabapentin 300 MG Cap PO SCH ×2 (11:25→20:56)
[2017-07-29] MEDS: methylPREDNISolone Sodium Succinate 40 MG/1 ML SDV IVPUSH SCH ×2 (11:25→19:55)
[2017-07-29] MEDS: Isosorbide Mononitrate 30 MG Tab.ER PO SCH (11:25)
[2017-07-29] MEDS ORDERED: Insulin Aspart 100 Units/ML 3 ML Pen SUBCUT ONE ×2 (13:37→17:47)
[2017-07-29] MEDS: Docusate Sodium 100 MG Cap PO SCH (20:54)
[2017-07-29] MEDS: Bisacodyl 5 MG Tab PO SCH (20:54)
[2017-07-29] MEDS: Mirtazapine 15 MG Tab PO SCH (20:56)
[2017-07-29] MEDS: Ezetimibe 10 MG Tab PO SCH (20:56)
[2017-07-29] MEDS: Insulin Detemir 100 Units/ML 3 ML Pen SUBCUT SCH (21:10)
[2017-07-30] MEDS ORDERED: Potassium Chloride 20 MEQ Tab.ER PO ONE (00:27)
[2017-07-30] MEDS ORDERED: Insulin Aspart 100 Units/ML 3 ML Pen SUBCUT ONE ×3 (00:30→04:45)
[2017-07-30] MEDS: Albuterol/Ipratropium 3.0-0.5 MG/3 ML Neb Soln NEB PRN ×3 (01:04→12:59)
[2017-07-30] MEDS: Acetaminophen 500 MG Tab PO PRN (02:54)
[2017-07-30] MEDS: methylPREDNISolone Sodium Succinate 40 MG/1 ML SDV IVPUSH SCH ×3 (03:24→19:40)
[2017-07-30] MEDS: Azithromycin 500 MG in Sodium Chloride 0.9% 250 ML IV SCH (04:59)
[2017-07-30] MEDS: Pantoprazole 40 MG Tab.CR PO SCH (05:04)
[2017-07-30] MEDS: Insulin Aspart 100 Units/ML 3 ML Pen SUBCUT SCH ×6 (08:23→17:50)
--- NOTE | 2017-07-30 08:32 | HP ---
ADMISSION DATE: 07/29/2017 REASON FOR VISIT: Complicated respiratory difficulty. HISTORY OF PRESENT ILLNESS: Marion Clark is a 77-year-old, recently , female, admitted to [facility] through the emergency room. She presents with probably a 4-day history of progressive respiratory difficulty, complicated cough, dark gold complicated sputum, respiratory difficulty, increased wheezing, shortness of breath with exertion, suspicion for fever, though not confirmed. Increasing symptoms and inability to care for herself dictated this intervention. Longstanding history of reactive airway disease, nonsmoker by report, history of asthma. Multiple medical problems, clearly defined. ADMISSION MEDICATIONS: Please see medication reconciliation list. PAST MEDICAL HISTORY: Significant for 22-plus surgeries. These include valvuloplasty of 1 or 2 valves, multiple back surgeries including 2 with rods, hysterectomy with bilateral oophorectomy, 2 bladder repair surgeries, 2 rectal repair surgeries, left rotator cuff shoulder surgery, and multiple hand surgeries. Chronic illnesses include diabetes mellitus type 2, on insulin; coronary disease by discussion, though no stents, nitroglycerin and Imdur in place; complicated mood disorder; hyperlipidemia; and gastroesophageal reflux. ALLERGIES: Allergic to oxycodone, penicillin, phenylephrine, and tropicamide clearly defined. SOCIAL HISTORY: just 5 months ago. Worked at [employer] at 84. Three children, 6 grandchildren, and 8 great grandchildren. Never smoked. Nil alcohol consumption. No illicit drug use. FAMILY HISTORY: Negative for early heart disease or inheritable cancers. Positive for diabetes. REVIEW OF SYSTEMS: CONSTITUTIONAL: Feeling poorly. EYES: No vision in the right eye. Reasonable vision on the left. EARS: Hears well without complaints. OROPHARYNX: Intact dentition. CHEST: Please see HPI. CARDIOVASCULAR: Please see HPI. GASTROINTESTINAL: Regular predictable stools. No blood in the stools. : Good voiding pattern. No blood in urine. SKIN: No open sores or lesions. ENDOCRINE: No excessive thirst or urination. ALLERGIES: No chronic cough, wheeze, or congestion. PSYCHIATRIC: Mood stable. LABORATORY STUDIES: White count 10,700, hemoglobin 12.3, and hematocrit 37.5. Mild neutrophilia. INR 3.66, D-dimer 7.01. Blood gases revealed pH of 7.24, pCO2 of 73, and PO2 of 81. Electrolytes revealed BUN 36, creatinine 1.5, GFR 34, glucose random 400, troponin was negative, BNP 121. IMAGING: Chest x-ray revealed bilateral pneumonia. ASSESSMENT: A 77-year-old female presents with complicated respiratory difficulty, underlying lung disease, in need of hospitalization. Comorbid disease considered, multiple medical problems considered. PLAN: Admission to hospital is indicated, appropriate antibiotic therapy, microbiology will be obtained, blood cultures as appropriate. Complementary care and well-being. Proceed accordingly. Expect a moderate stay. Intravenous antibiotics, intravenous corticosteroids, aggressive RT treatment, and medical management. /[id number] /STEWART
[2017-07-30] MEDS: glipiZIDE 5 MG Tab PO SCH ×2 (08:36→17:49)
[2017-07-30] MEDS: Spironolactone 25 MG Tab PO SCH (08:37)
[2017-07-30] MEDS: Carvedilol 25 MG Tab PO SCH ×2 (08:38→21:55)
[2017-07-30] MEDS: Torsemide 20 MG Tab PO SCH (08:40)
[2017-07-30] MEDS: Valsartan 40 MG Tab PO SCH (08:42)
[2017-07-30] MEDS: Isosorbide Mononitrate 30 MG Tab.ER PO SCH (08:43)
[2017-07-30] MEDS: Aspirin 81 MG Tab.EC PO SCH (08:43)
[2017-07-30] MEDS: Digoxin 125 MCG Tab PO SCH (08:44)
[2017-07-30] MEDS: Insulin Detemir 100 Units/ML 3 ML Pen SUBCUT SCH ×2 (08:46→22:00)
[2017-07-30] MEDS: Gabapentin 300 MG Cap PO SCH ×2 (08:50→21:42)
[2017-07-30] MEDS: Allopurinol 100 MG Tab PO SCH (08:51)
[2017-07-30] MEDS: Escitalopram 10 MG Tab PO SCH (12:10)
--- NOTE | 2017-07-30 13:51 | PN ---
DATE SEEN: 07/30/2017 SUBJECTIVE: Marion Clark is a 77-year-old female, admitted with a complicated diffuse pneumonia. Response appears to be satisfactory. Fevers comfortable. INR continues to be elevated at 4.69, likely antibiotic-induced. Coumadin will be withheld. Gases persistent acidosis, pCO2 69, pH 7.22, PO2 85 2 L per nasal cannula. Electrolytes have improved. Sodium from 131 to 134, GFR 26 still low, glucose is much improved with the addition of her pre meal insulin of 30 units. Feeling better this morning. Blood cultures were not obtained at the time of admission. OBJECTIVE: VITAL SIGNS: 155/79, 84, 20 is the respiration, O2 saturation 95% on room air. GENERAL: Appears comfortable. Obvious wheezing. NECK: Benign. Thyroid small. CHEST: Diffuse wheezing, but better air exchange. HEART: Distant heart sounds without ectopy or murmur. ABDOMEN: Benign. No organomegaly. Complicated obesity. ASSESSMENT: Complicated pneumonia with underlying chronic lung disease and asthma. PLAN: Medications, care, and treatment appropriate. Continue IV antibiotics. Continue IV steroid. Aggressive RT treatment. Complementary care and well being. We will start Lexapro at the request of Dr. Tucker. /[id number] JAVIER/STEWART
[2017-07-30] MEDS ORDERED: Warfarin 5 MG Tab PO SCH (16:00)
--- NOTE | 2017-07-30 16:20 | ER ---
DATE SEEN: 07/28/2017 HISTORY: This 77-year-old woman who has significant history of hypertension, insulin-dependent diabetes, and who is on anticoagulants, depression, fibromyalgia, COPD, congestive heart failure, cardiomyopathy, atrial fibrillation, type 2 diabetes, aortic valvuloplasty, aortic stenosis as well as mitral insufficiency with defibrillation for atrial fibrillation, CABG, obesity, cardiomegaly, and gout presents with a chief complaint of 4 days of shortness of breath without fever, but with significant cough and mild dyspnea on exertion. This has steadily gotten worse, and presents to the ED for further evaluation. ALLERGIES: She has allergies to oxycodone, penicillin, phenylephrine, tropicamide, and oxycodone. MEDICATIONS: 1. Acetaminophen. 2. Albuterol. 3. Allopurinol. 4. Warfarin 5 mg Saturday and Saturday and 2.5 mg Saturday, Saturday, , Saturday, Saturday. 5. Torsemide 1.5 mg daily. 6. Valsartan 20 mg daily. 7. Spironolactone 25 mg daily. 8. Sitagliptin 50 mg daily. 9. Glipizide 5 mg b.i.d. 10.Zetia 10 mg at bedtime. 11.Carvedilol 25 mg b.i.d. 12.Simvastatin 80 mg at bedtime. 13.Omeprazole 20 mg every other day. 14.Nitroglycerin. 15.Remeron 15 mg at bedtime. 16.Imdur 30 mg daily. 17.Insulin 35 units subcu b.i.d. 18.NovoLog 30 units subcu with meals. 19.Gabapentin 900 mg b.i.d. 20.Docusate 100 mg at bedtime. 21.Cyanocobalamin 1000 mcg every 30 days. 22.Dulcolax. REVIEW OF SYSTEMS: As noted above. HEENT: Denies compromised vision. Denies sore throat, sinus congestion, or facial pain. CARDIORESPIRATORY/GI: Short of breath, coughing, increased wheeze, recent onset of virus, tightness of the chest not responding to asthma medicine, has used albuterol inhalers 6 times in the last 4 hours without success, very dyspneic. Denies back pain, arm pain, jaw pain, neck pain, lightheadedness, near syncope, syncope, or palpitation. Denies constipation, blood in her stool, black tarry stool, diarrhea, vomiting. She does have GERD. : Denies frequency, urgency, dysuria, and incontinence. NEUROLOGICAL: Denies headaches, seizures, paresis, weakness, or CVA. MUSCULOSKELETAL: Generalized muscle aches and arthritis secondary to morbid obesity (230 pounds). PSYCHIATRIC: She has depression, uses Remeron. Fibromyalgia. PHYSICAL EXAMINATION: VITAL SIGNS: Blood pressure not listed because the computers are down and I do not have that data available to me. GENERAL/HEENT/NECK: Alert woman in moderate distress. Audible respirations heard as I walked in the room. They are coarse in nature and low-pitched, not high-pitched. She has a dry hacky coarse cough associated with these dry low- pitched rhonchi. The patient is in moderate distress. No jugular venous distention. Pharynx without abnormality. Mucosa is mildly dry. TMs negative. Moderate cerumen in the right external canal. Pharynx without erythema. No sinus pressure or discomfort. No bruits in the neck. LUNGS: Very coarse low- pitched rhonchi and sonorous wheezes with accessory muscle breathing. Moderate rales. ABDOMEN: Marked increased abdominal panniculus. No abdominal tenderness. Scars noted in the abdomen without hernia. BACK: No CVA percussion tenderness. No spinous process tenderness in the cervical, thoracic, or lumbar spine. EXTREMITIES: Lower extremities: Marked adiposity without pain of venous structures. Dorsalis pedis intact. No pedal edema. Hypoactive upper and lower extremity deep tendon reflexes. NEURO: Cranial nerves 2 through 12 intact. Oriented x3. The patient has moderate cough and not an extremist. LABORATORY DATA: X-ray demonstrates abnormality in the right lateral lobe, question lesion. CT was performed and did not demonstrate PE or cancer, but nonspecific infiltrate in right lateral lobe. CRL reading of the chest views: Cardiomegaly, prominent pulmonary filemon, ill-defined density, patchy opacity in right lung base and lingula. No pneumothorax or effusion. Surgical anchors in left humeral head. Internal fixation hardware in left lower thoracic spine (cage). The patchy abnormality of the right lung lingula reflects atelectasis or infection. Ill-defined pulmonary hilum, venous congestion, adenopathy cannot be excluded. A CAT scan was performed, noncontrast and postcontrast imaging: Multiple calcified mediastinal lymph nodes, bilateral hilar and subcarinal lymph nodes compatible with granulomatosis disease, calcified coronary arteries, all 3 coronary arteries. Mitral annulus calcification and aortic valve calcification. No pleural effusion. No aortic aneurysm. Multiple mediastinal lymph nodes compatible with prior granulomatous disease-histoplasmosis, patchy airspace opacification in bilateral lower lobes, right greater than left, corresponds to peripheral consolidation right lower lobe. Lumbar fixation hardware. No evidence for thoracic compression fracture. CT findings suggestive of multifocal pneumonia, right lower lobe infiltrate. Severely calcified coronary artery disease. LABORATORY FINDINGS: White count 10,700, PMNs 84, INR 3.66, PTT 38. ABGs; pH 7.24, pCO2 of 73, O2 81, bicarbonate 30, oxygen saturation 93% on nasal cannula 2 L. Sodium 134, potassium 5.1, chloride 97, bicarbonate 28, BUN 26, creatinine 1.5, GFR 34%, BUN/creatinine ratio 24, glucose 400, troponin 0.07. ASSESSMENT: 1. Pneumonia. 2. 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 3. Patchy atelectasis. 4. Cardiomegaly. 5. Significant coronary artery disease with marked calcification of coronary arteries with status post previous myocardial infarction, defibrillation, history of aortic and mitral valvuloplasties, congestive heart failure, cardiomyopathy. 6. History of deep vein thrombosis. 7. Obesity of 230 pounds. 8. Dyslipidemia. 9. Chronic low back pain with the previous cage placed for back pain, degenerative disk disease. 10.Diabetes. 11.Chronic obstructive lung disease. The patient admitted to the hospital, placed on Azithromycin 500 mg, low insulin protocol, given methylprednisolone 125 mg IV and intermittent recurrent DuoNeb. The patient's status improved, however still has significant shortness of breath and she feels probably 50% improvement in her respiratory status. Also procalcitonin obtained. EKG. ADDENDUM: The patient's medications at home: 1. Albuterol inhaler, albuterol nebulization. 2. Allopurinol. 3. Aspirin. 4. Bisacodyl. 5. Carvedilol 25 mg b.i.d. 6. Cyanocobalamin 1000 mcg per month injection. 7. Digoxin 125 mcg daily. 8. Dulcolax. 9. Ezetimibe (Zetia) 10 mg. 10.Gabapentin 300 mg 3 capsules b.i.d. 11.Glipizide 5 mg b.i.d. 12.Insulin 30 units with breakfast, 30 units in evening, 30 units with snack if eaten. 13.Isosorbide 1 tablet by mouth once daily. 14.Levemir 35 units a.m. and 35 units evening. 15.Milnacipran (Savella) 1 tablet b.i.d. 50 mg. 16.Nitroglycerin p.r.n. 17.Nystatin 100,000 units/powder apply topically 3 times a day. 18.Omeprazole every other day. 19.Simvastatin 80 mg 1 tablet at bedtime. 20.Sitagliptin 50 mg daily. 21.Spironolactone daily. 22.Torsemide 20 mg 1-1/2 tablets if gaining more than 3 pounds or has increasing shortness of breath, increase to 2 tablets for 1 day. 23.Valsartan 40 mg one-half tablet daily. 24.Voltaren 1% topical apply 4 g topically 3 times a day as needed for pain to joints - rub into skin. 25.Warfarin 5 mg on Saturday and Saturday and a half tablet on other days. The patient admitted for further evaluation, treatment, and aggressive DuoNeb therapy. ADDITIONAL COMMENT: She had a slight elevation of troponin secondary to vascular insufficiency. She does not have suggestion of new myocardial infarction. The patient was seen at 2240 hours. /[id number] MICHEL/STEWART
[2017-07-30] MEDS: Sodium Chloride 0.9% 10 ML Syringe FLUSH PRN (19:47)
[2017-07-30] MEDS: Bisacodyl 5 MG Tab PO SCH (21:45)
[2017-07-30] MEDS: Ezetimibe 10 MG Tab PO SCH (21:45)
[2017-07-30] MEDS: Docusate Sodium 100 MG Cap PO SCH (21:46)
[2017-07-30] MEDS: Mirtazapine 15 MG Tab PO SCH (21:46)
[2017-07-31] MEDS: methylPREDNISolone Sodium Succinate 40 MG/1 ML SDV IVPUSH SCH ×3 (02:18→19:34)
[2017-07-31] MEDS: Sodium Chloride 0.9% 10 ML Syringe FLUSH PRN ×4 (02:19→19:35)
[2017-07-31] MEDS: Azithromycin 500 MG in Sodium Chloride 0.9% 250 ML IV SCH (06:05)
[2017-07-31] MEDS: Insulin Aspart 100 Units/ML 3 ML Pen SUBCUT SCH ×6 (07:48→17:43)
[2017-07-31] MEDS: Spironolactone 25 MG Tab PO SCH (08:28)
[2017-07-31] MEDS: glipiZIDE 5 MG Tab PO SCH ×2 (08:28→17:42)
[2017-07-31] MEDS: Carvedilol 25 MG Tab PO SCH ×2 (08:29→20:30)
[2017-07-31] MEDS: Torsemide 20 MG Tab PO SCH (08:31)
[2017-07-31] MEDS: Valsartan 40 MG Tab PO SCH (08:33)
[2017-07-31] MEDS: Isosorbide Mononitrate 30 MG Tab.ER PO SCH (08:36)
[2017-07-31] MEDS: Aspirin 81 MG Tab.EC PO SCH (08:37)
[2017-07-31] MEDS: Albuterol/Ipratropium 3.0-0.5 MG/3 ML Neb Soln NEB PRN ×2 (08:45→23:56)
[2017-07-31] MEDS: Insulin Detemir 100 Units/ML 3 ML Pen SUBCUT SCH ×2 (08:59→20:31)
[2017-07-31] MEDS: Escitalopram 10 MG Tab PO SCH (09:00)
[2017-07-31] MEDS: Gabapentin 300 MG Cap PO SCH ×2 (09:01→20:29)
[2017-07-31] MEDS: Allopurinol 100 MG Tab PO SCH (09:02)
--- NOTE | 2017-07-31 11:36 | PN ---
DATE SEEN: 07/31/2017 SUBJECTIVE: Marion Clark is a 77-year-old female, admitted with complicated pneumonia. Clinical response has been slow, but satisfactory. Blood sugars appear to be of reasonable nature given IV steroids and intervention. Arterial blood gases were reviewed. Persistent hypercarbia. Pro-time has improved and now therapeutic 2.74. She is otherwise doing well. Cough is less productive. She is comfortable with a well-being. Blood sugars 215, 267, 320, and 228. OBJECTIVE: VITAL SIGNS: 128/77, mean blood pressure 94, pulse of 82, 93% on room air. GENERAL: Appears comfortable. Speech was a bit more spontaneous. NECK: Benign. CHEST: Diffuse wheeze and coarse rhonchi at both bases. Distant heart sounds. ABDOMEN: Rotund, obese. ASSESSMENT: Bilateral pneumonia. PLAN: Continue with intravenous azithromycin, intravenous Rocephin, methylprednisolone. Complementary care and well being, RT actively involved. /[id number] /STEWART
[2017-07-31] MEDS: Warfarin 2.5 MG Tab PO SCH (15:51)
[2017-07-31] MEDS: Ezetimibe 10 MG Tab PO SCH (20:29)
[2017-07-31] MEDS: Bisacodyl 5 MG Tab PO SCH (20:30)
[2017-07-31] MEDS: Mirtazapine 15 MG Tab PO SCH (20:30)
[2017-07-31] MEDS: Docusate Sodium 100 MG Cap PO SCH (20:30)
[2017-08-01] MEDS: Sodium Chloride 0.9% 10 ML Syringe FLUSH PRN ×4 (02:49→18:35)
[2017-08-01] MEDS: methylPREDNISolone Sodium Succinate 40 MG/1 ML SDV IVPUSH SCH ×3 (02:49→18:37)
[2017-08-01] MEDS: Azithromycin 500 MG in Sodium Chloride 0.9% 250 ML IV SCH (05:36)
[2017-08-01] MEDS: Albuterol/Ipratropium 3.0-0.5 MG/3 ML Neb Soln NEB PRN ×2 (07:59→22:34)
[2017-08-01] MEDS: glipiZIDE 5 MG Tab PO SCH ×2 (08:49→18:34)
[2017-08-01] MEDS: Pantoprazole 40 MG Tab.CR PO SCH (08:49)
[2017-08-01] MEDS: Carvedilol 25 MG Tab PO SCH ×2 (08:50→21:44)
[2017-08-01] MEDS: Spironolactone 25 MG Tab PO SCH (08:50)
[2017-08-01] MEDS: Valsartan 40 MG Tab PO SCH (08:51)
[2017-08-01] MEDS: Torsemide 20 MG Tab PO SCH (08:51)
[2017-08-01] MEDS: Aspirin 81 MG Tab.EC PO SCH (08:52)
[2017-08-01] MEDS: Isosorbide Mononitrate 30 MG Tab.ER PO SCH (08:53)
[2017-08-01] MEDS: Digoxin 125 MCG Tab PO SCH (08:53)
[2017-08-01] MEDS: Escitalopram 10 MG Tab PO SCH (08:54)
[2017-08-01] MEDS: Allopurinol 100 MG Tab PO SCH (08:55)
[2017-08-01] MEDS: Gabapentin 300 MG Cap PO SCH ×2 (08:55→21:45)
[2017-08-01] MEDS: Insulin Aspart 100 Units/ML 3 ML Pen SUBCUT SCH ×6 (09:00→18:36)
[2017-08-01] MEDS: Insulin Detemir 100 Units/ML 3 ML Pen SUBCUT SCH ×2 (09:01→21:48)
--- NOTE | 2017-08-01 11:21 | PN ---
DATE SEEN: 08/01/2017 SUBJECTIVE: Marion Clark is a 77-year-old, female, admitted with acute respiratory distress, underlying chronic obstructive lung disease, and reactive airway disease. Clinical response appears to be reasonable. Coughing less sputum, is less productive, more comfortable in that regard. Sats are improving on supplemental O2. Laboratory studies, INR is satisfactory. CBC on admission, reviewed, chemistries reviewed and outlined. OBJECTIVE: VITAL SIGNS: 36.4, 70, 111/71, mean blood pressure 84, respiratory rate 24, and 92% on air. HEENT: Speech was a little delayed due to respiratory difficulty. NECK: Benign. Thyroid small. No JVD. CHEST: Coarse rhonchi. Diffuse wheezing, but better exchange. HEART: Distant heart sounds without ectopy or murmur. ABDOMEN: Obese. ASSESSMENT: Acute respiratory event with pneumonia, CT confirmed, complicated cough, underlying chronic lung disease. PLAN: We will continue with medications and care including IV azithromycin, IV Rocephin, DuoNebs, at least one more day of methylprednisolone, complementary care and well being. Expected stay until the weekend. /[id number] JAVIER/STEWART
--- NOTE | 2017-08-01 14:26 | CR ---
INDICATION: Cough, shortness of breath, pneumonia follow-up. CHEST: PA and lateral views of the chest with two lateral views 08/01/2017, were compared with 07/28/2017 and 01/27/2017, revealing findings remaining compatible with ASHD with cardiomegaly/left ventricular enlargement and tortuous calcified aorta. The examination was somewhat over penetrated, decreasing visualization of the parenchyma of the lung. There does not appear to be definite CHF, however. Bibasilar heavy markings are present, with suggestion of blunting at the right posterior sulcus and possibly minimally the left. Findings may be on the basis of patchy basilar bronchopneumonia, possibly with some linear atelectatic strands bilaterally. Pleuritis is also suggested to a mild degree bilaterally. No gross consolidating pneumonia or large effusion is present. Slightly prominent AP diameter, hyperaeration, and slightly flattened diaphragm leaf on the lateral view raises question of obstructive airway disease, but should be correlated clinically. IMPRESSION: 1. Bibasilar pleuroparenchymal changes compatible with pneumonia, pleuritis, and possibly with linear atelectasis. Other etiology such as pulmonary embolus cannot be excluded - correlate clinically. 2. ASHD with cardiomegaly. 3. Probable mild osteoporosis with DJD in the mid to lower thoracic spine. 4. Possible COPD - correlate clinically. 5. Upper lumbar spine fusion with rods and pedicle screws. MTDD
[2017-08-01] MEDS ORDERED: Magnesium Hydroxide 400 MG/5 ML Susp 30 ML Cup PO PRN (16:18)
[2017-08-01] MEDS: Warfarin 2.5 MG Tab PO SCH (16:20)
[2017-08-01] MEDS: Docusate Sodium 100 MG Cap PO SCH (21:44)
[2017-08-01] MEDS: Bisacodyl 5 MG Tab PO SCH (21:45)
[2017-08-01] MEDS: Mirtazapine 15 MG Tab PO SCH (21:46)
[2017-08-01] MEDS: Ezetimibe 10 MG Tab PO SCH (21:47)
[2017-08-02] MEDS: methylPREDNISolone Sodium Succinate 40 MG/1 ML SDV IVPUSH SCH ×3 (03:00→20:28)
[2017-08-02] MEDS: Sodium Chloride 0.9% 10 ML Syringe FLUSH PRN ×2 (03:04→12:57)
[2017-08-02] MEDS: Sodium Chloride 0.9% 250 ML IV SCH (05:12)
[2017-08-02] MEDS: Azithromycin 500 MG in Sodium Chloride 0.9% 250 ML IV SCH (05:13)
--- NOTE | 2017-08-02 08:10 | PN ---
DATE SEEN: 08/02/2017 SUBJECTIVE: Marion Clark is a 77-year-old female admitted for complicated respiratory illness. Slowly improving. Cough is improving. Secretions have been clear, fevers been absent and she has been in reasonable spirits. Coagulation studies are satisfactory. INR 08/02 2.41. Glucose is reasonable 227, 221, 94 given aggressive antibiotic therapy and steroids. Most recent radiographs 08/01/2017 revealed stable pneumonia findings, cardiomegaly, underlying COPD. OBJECTIVE: VITAL SIGNS: 118.388 kg, 36.4 degrees centigrade, 64 is the pulse, blood pressure 117/56, mean blood pressure 76, 96% on 1 L. GENERAL: Good spirits. No particular complaints. NECK: Benign. Thyroid small. CHEST: Diffuse wheezing, coarse rhonchi. HEART: Regular without murmur. ABDOMEN: Benign. Markedly distended, obese. ASSESSMENT: Pneumonia with underlying chronic obstructive pulmonary disease exacerbation. PLAN: We will continue with present medications and care, expect a reasonable duration of stay, the patient is in agreement. /[id number] JAVIER/STEWART
[2017-08-02] MEDS: Albuterol/Ipratropium 3.0-0.5 MG/3 ML Neb Soln NEB PRN ×2 (08:42→13:15)
[2017-08-02] MEDS: glipiZIDE 5 MG Tab PO SCH ×2 (09:27→18:20)
[2017-08-02] MEDS: Insulin Detemir 100 Units/ML 3 ML Pen SUBCUT SCH ×2 (09:33→20:56)
[2017-08-02] MEDS: Insulin Aspart 100 Units/ML 3 ML Pen SUBCUT SCH ×6 (09:34→18:21)
[2017-08-02] MEDS: Spironolactone 25 MG Tab PO SCH (09:36)
[2017-08-02] MEDS: Torsemide 20 MG Tab PO SCH (09:37)
[2017-08-02] MEDS: Carvedilol 25 MG Tab PO SCH ×2 (09:37→20:50)
[2017-08-02] MEDS: Isosorbide Mononitrate 30 MG Tab.ER PO SCH (09:38)
[2017-08-02] MEDS: Valsartan 40 MG Tab PO SCH (09:38)
[2017-08-02] MEDS: Aspirin 81 MG Tab.EC PO SCH (09:38)
[2017-08-02] MEDS: Escitalopram 10 MG Tab PO SCH (09:39)
[2017-08-02] MEDS: Gabapentin 300 MG Cap PO SCH ×2 (09:39→20:51)
[2017-08-02] MEDS: Allopurinol 100 MG Tab PO SCH (09:40)
[2017-08-02] MEDS: Docusate Sodium 100 MG Cap PO SCH (20:50)
[2017-08-02] MEDS: Bisacodyl 5 MG Tab PO SCH (20:51)
[2017-08-02] MEDS: Ezetimibe 10 MG Tab PO SCH (20:52)
[2017-08-02] MEDS: Mirtazapine 15 MG Tab PO SCH (20:52)
[2017-08-03] MEDS: methylPREDNISolone Sodium Succinate 40 MG/1 ML SDV IVPUSH SCH ×3 (03:07→18:49)
[2017-08-03] MEDS: Sodium Chloride 0.9% 10 ML Syringe FLUSH PRN ×2 (03:09→06:01)
[2017-08-03] MEDS: Acetaminophen 500 MG Tab PO PRN ×2 (05:20→23:46)
[2017-08-03] MEDS: Sodium Chloride 0.9% 250 ML IV SCH (05:21)
[2017-08-03] MEDS: Azithromycin 500 MG in Sodium Chloride 0.9% 250 ML IV SCH (05:21)
[2017-08-03] MEDS: Pantoprazole 40 MG Tab.CR PO SCH (06:24)
[2017-08-03] MEDS: Albuterol/Ipratropium 3.0-0.5 MG/3 ML Neb Soln NEB PRN ×3 (07:39→23:46)
[2017-08-03] MEDS: Insulin Aspart 100 Units/ML 3 ML Pen SUBCUT SCH ×6 (08:14→17:34)
[2017-08-03] MEDS: Escitalopram 10 MG Tab PO SCH (08:25)
[2017-08-03] MEDS: Valsartan 40 MG Tab PO SCH (08:30)
[2017-08-03] MEDS: Carvedilol 25 MG Tab PO SCH ×2 (08:30→20:50)
[2017-08-03] MEDS: Isosorbide Mononitrate 30 MG Tab.ER PO SCH (08:30)
[2017-08-03] MEDS: Spironolactone 25 MG Tab PO SCH (08:30)
[2017-08-03] MEDS: Aspirin 81 MG Tab.EC PO SCH (08:30)
[2017-08-03] MEDS: glipiZIDE 5 MG Tab PO SCH ×2 (08:30→17:34)
[2017-08-03] MEDS: Torsemide 20 MG Tab PO SCH (08:30)
[2017-08-03] MEDS: Allopurinol 100 MG Tab PO SCH (08:31)
[2017-08-03] MEDS: Digoxin 125 MCG Tab PO SCH (08:31)
[2017-08-03] MEDS: Insulin Detemir 100 Units/ML 3 ML Pen SUBCUT SCH ×2 (08:31→20:58)
[2017-08-03] MEDS: Gabapentin 300 MG Cap PO SCH ×2 (08:31→20:48)
--- NOTE | 2017-08-03 16:50 | PCM.PN ---
- General Info Date of Service: 08/03/17 Admission Dx/Problem (Free Text): Multifocal pneumonia Subjective Update: Patient is a 77-year-old female currently on hospital day #6 with multifocal pneumonia. Continues to show slow improvement. she feels like she is at about 50% of her baseline. Continues to have a cough. Continues to have shortness of breath with ambulation. Over the last 24 hours has been less active. She was started back on Lexapro for depression inadvertently which has apparently been stopped in the outpatient setting because of confusion. We held her dose today but she is still drowsy and a little bit disoriented. However vital signs are stable. Denies chest pain. Currently lying down in bed and was sleeping. Hasn' t had any nausea was having some constipation. This is now resolved. Still has some cough but struggles to cough up phlegm. Functional Status: Reports: Tolerating Diet, Ambulating, New Symptoms (fatigue, lethargy, slightly disoriented at times.) - Patient Data Vitals - Most Recent: Last Vital Signs Temp 36.4 C 08/03/17 08:28 Pulse 78 08/03/17 14:10 Resp 22 H 08/03/17 08:28 BP 115/66 08/03/17 08:30 Pulse Ox 93 L 08/03/17 14:10 Weight - Most Recent: 117.753 kg I&O - Last 24 Hours: Intake & Output 08/03/17 08/03/17 08/03/17 06:59 14:59 22:59 Output Total 200 Balance -200 Lab Results Last 24 Hours: Laboratory Results - last 24 hr 08/02/17 08/02/17 08/03/17 Range/Units 17:02 20:26 06:23 PT (8.7-11.1) INR (0.89-1.13) POC Glucose 365 H D 313 H 147 H D (80-116) mg/dL 08/03/17 08/03/17 Range/Units 06:25 11:19 PT 33.5 H (8.7-11.1) INR 3.24 H (0.89-1.13) POC Glucose 294 H D (80-116) mg/dL Med Orders - Current: Current Medications Acetaminophen (Tylenol Extra Strength) 1,000 mg PO Q6H PRN PRN Reason: Pain Last Admin: 08/03/17 05:20 Dose: 1,000 mg Albuterol/Ipratropium (Duoneb 3.0-0.5 Mg/3 Ml) 3 ml NEB Q4H PRN PRN Reason: Shortness of Breath Last Admin: 08/03/17 13:14 Dose: 3 ml Allopurinol (Zyloprim) 100 mg PO DAILY COUNT INCLUDES THE [facility] Last Admin: 08/03/17 08:31 Dose: 100 mg Aspirin (Halfprin) 81 mg PO DAILY COUNT INCLUDES THE [facility] Last Admin: 08/03/17 08:30 Dose: 81 mg Bisacodyl (Dulcolax) 15 mg PO BEDTIME COUNT INCLUDES THE [facility] Last Admin: 08/02/17 20:51 Dose: 15 mg Carvedilol (Coreg) 25 mg PO BID COUNT INCLUDES THE [facility] Last Admin: 08/03/17 08:30 Dose: 25 mg Digoxin (Lanoxin) 125 mcg PO Q48H COUNT INCLUDES THE [facility] Last Admin: 08/03/17 08:31 Dose: 125 mcg Docusate Sodium (Colace) 100 mg PO BEDTIME COUNT INCLUDES THE [facility] Last Admin: 08/02/17 20:50 Dose: 100 mg Ezetimibe (Zetia) 10 mg PO BEDTIME COUNT INCLUDES THE [facility] Last Admin: 08/02/17 20:52 Dose: 10 mg Escitalopram Oxalate (Lexapro) 5 mg PO DAILY COUNT INCLUDES THE [facility] Last Admin: 08/03/17 08:25 Dose: Not Given Gabapentin (Neurontin) 900 mg PO BID COUNT INCLUDES THE [facility] Last Admin: 08/03/17 08:31 Dose: 900 mg Glipizide (Glucotrol) 5 mg PO BIDMEALS COUNT INCLUDES THE [facility] Last Admin: 08/03/17 08:30 Dose: 5 mg Azithromycin 500 mg/ Sodium (Chloride) 250 mls @ 250 mls/hr IV Q24H COUNT INCLUDES THE [facility] Last Admin: 08/03/17 05:21 Dose: 250 mls/hr Sodium Chloride (Normal Saline) 250 mls @ 100 mls/hr IV ASDIRECTED COUNT INCLUDES THE [facility] Last Admin: 08/03/17 05:21 Dose: 100 mls/hr Insulin Aspart (Novolog) 0 unit SUBCUT TIDMEALS COUNT INCLUDES THE [facility] PRN Reason: Protocol Last Admin: 08/03/17 11:37 Dose: 3 units Insulin Aspart (Novolog) 30 unit SUBCUT TIDMEALS COUNT INCLUDES THE [facility] Last Admin: 08/03/17 11:37 Dose: 30 units Insulin Detemir (Levemir) 30 unit SUBCUT BEDTIME COUNT INCLUDES THE [facility] Last Admin: 08/02/17 20:56 Dose: 30 units Insulin Detemir (Levemir) 35 unit SUBCUT DAILY COUNT INCLUDES THE [facility] Last Admin: 08/03/17 08:31 Dose: 35 units Isosorbide Mononitrate (Imdur) 30 mg PO DAILY COUNT INCLUDES THE [facility] Last Admin: 08/03/17 08:30 Dose: 30 mg Magnesium Hydroxide (Milk Of Magnesia) 30 ml PO DAILY PRN PRN Reason: Constipation Last Admin: 08/01/17 16:56 Dose: 30 ml Methylprednisolone Sodium Succinate (Solu-Medrol) 40 mg IVPUSH Q8H COUNT INCLUDES THE [facility] Last Admin: 08/03/17 11:32 Dose: 40 mg Milnacipran HCl (Savella) 50 mg PO BID COUNT INCLUDES THE [facility] Last Admin: 08/03/17 08:31 Dose: 50 mg Mirtazapine (Remeron) 15 mg PO BEDTIME COUNT INCLUDES THE [facility] Last Admin: 08/02/17 20:52 Dose: 15 mg Pantoprazole Sodium (Protonix) 40 mg PO Q48H COUNT INCLUDES THE [facility] Last Admin: 08/03/17 06:24 Dose: 40 mg Simvastatin (Zocor) 80 mg PO BEDTIME COUNT INCLUDES THE [facility] Last Admin: 08/02/17 20:52 Dose: 80 mg Sitagliptin Phosphate (Januvia) 50 mg PO DAILY COUNT INCLUDES THE [facility] Last Admin: 08/03/17 08:30 Dose: 50 mg Sodium Chloride (Saline Flush) 10 ml FLUSH ASDIRECTED PRN PRN Reason: Keep Vein Open Last Admin: 08/03/17 06:01 Dose: 10 ml Spironolactone (Aldactone) 25 mg PO DAILY COUNT INCLUDES THE [facility] Last Admin: 08/03/17 08:30 Dose: 25 mg Torsemide (Demadex) 30 mg PO DAILY COUNT INCLUDES THE [facility] Last Admin: 08/03/17 08:30 Dose: 30 mg Torsemide (Demadex) 30 mg PO ASDIRECTED PRN PRN Reason: WEIGHT GAIN MORE THAN 3 LBS Valsartan (Diovan) 20 mg PO DAILY COUNT INCLUDES THE [facility] Last Admin: 08/03/17 08:30 Dose: 20 mg Warfarin Sodium (Coumadin Sliding Scale) 0 each PO DAILY COUNT INCLUDES THE [facility] Warfarin Sodium (Coumadin) 2.5 mg PO SuMoWeThSa@1600 COUNT INCLUDES THE [facility] Last Admin: 08/01/17 16:20 Dose: 2.5 mg Warfarin Sodium (Coumadin) 5 mg PO TuFr@1600 COUNT INCLUDES THE [facility] Last Admin: 08/02/17 16:10 Dose: 5 mg Discontinued Medications Albuterol/Ipratropium (Duoneb 3.0-0.5 Mg/3 Ml) 3 ml NEB ONETIME ONE Stop: 07/28/17 22:53 Albuterol/Ipratropium (Duoneb 3.0-0.5 Mg/3 Ml) Confirm Administered Dose 3 ml .ROUTE .STK-MED ONE Stop: 07/29/17 01:17 Last Admin: 07/29/17 11:40 Dose: Not Given Azithromycin (Zithromax) Confirm Administered Dose 500 mg .ROUTE .STK-MED ONE Stop: 07/29/17 04:57 Last Admin: 07/29/17 05:07 Dose: Not Given Sodium Chloride (Normal Saline) 1,000 mls @ 100 mls/hr IV ASDIRECTED COUNT INCLUDES THE [facility] Last Admin: 07/29/17 21:39 Dose: 100 mls/hr Sodium Chloride (Normal Saline) 1,000 mls @ as directed IV .STK-MED ONE Stop: 07/28/17 23:46 Influenza Virus Vaccine (Fluzone Quad [id number]) 60 mcg IM .ONCE ONE Stop: 07/29/17 08:16 Insulin Aspart (Novolog) 10 unit SUBCUT ONETIME ONE Stop: 07/29/17 13:38 Last Admin: 07/29/17 13:56 Dose: 10 units Insulin Aspart (Novolog) 10 unit SUBCUT ONETIME ONE Stop: 07/29/17 17:48 Last Admin: 07/29/17 18:00 Dose: 10 units Insulin Aspart (Novolog) 18 unit SUBCUT ONETIME ONE Stop: 07/30/17 00:31 Last Admin: 07/30/17 00:46 Dose: 18 units Insulin Aspart (Novolog) 20 unit SUBCUT ONETIME ONE Stop: 07/30/17 02:46 Last Admin: 07/30/17 02:49 Dose: 20 units Insulin Aspart (Novolog) 15 unit SUBCUT ONETIME ONE Stop: 07/30/17 04:46 Last Admin: 07/30/17 04:55 Dose: 15 units Insulin Detemir (Levemir) 35 unit SUBCUT DAILY COUNT INCLUDES THE [facility] Last Admin: 07/29/17 11:37 Dose: 35 units Iopamidol (Isovue-370 (76%)) 100 ml IV . DIRECTED ONE Stop: 07/29/17 08:56 Last Admin: 07/29/17 02:00 Dose: 79 ml Methylprednisolone Sodium Succinate (Solu-Medrol) Confirm Administered Dose 125 mg .ROUTE .STK-MED ONE Stop: 07/28/17 23:46 Last Admin: 07/29/17 11:28 Dose: Not Given Potassium Chloride (Klor-Con M20) 20 meq PO ONETIME ONE Stop: 07/30/17 00:28 Last Admin: 07/30/17 00:46 Dose: 20 meq Prednisone (Prednisone) 20 mg PO WITHBREAKFAST JESUS Last Admin: 07/29/17 09:21 Dose: 20 mg Terbutaline Sulfate (Brethine) 0.25 mg SUBCUT Q4H COUNT INCLUDES THE [facility] Last Admin: 07/29/17 08:33 Dose: 0.25 mg - Exam Quality Assessment: Supplemental Oxygen, DVT Prophylaxis (chronic anticoagulation) General: Alert, Cooperative, No Acute Distress (currently not confused, no disorientation, but c/o fatigue) HEENT: Pupils Equal, Pupils Reactive Neck: Supple Lungs: Crackles (bilaterally but with good air movement.), Rhonchi Cardiovascular: Regular Rate GI/Abdominal Exam: Normal Bowel Sounds, Soft, Non-Tender Back Exam: Normal Inspection Skin: Warm, Dry, Intact Psy/Mental Status: Depressed (notes depression but feels she does well at home. ) - Problem List & Annotations (1) Pneumonia SNOMED Code(s): 485828676 Code(s): J18.9 - PNEUMONIA, UNSPECIFIED ORGANISM Status: Acute Current Visit: Yes Annotation/Comment:: Patient continues to show slow improvement. As this is the first time I'm seeing her and she was sleeping it's hard to know if some of the rhonchi/crackling sounds are merely because she's been lying down. She feels that she is improved and would like to stay the course. With further evaluation as noted below, I think we can see how things go overnight but she's completed 5 days of antibiotic therapy with Rocephin and azithromycin and I would suggest we stop these and if she looks like she needs further antibiotic therapy we should rethink our diagnosis. I would wonder about covering her for aspiration type organisms although she denies any history of coughing or choking episodes at home. (2) Lethargy SNOMED Code(s): 423009377 Code(s): R53.83 - OTHER FATIGUE Status: Acute Current Visit: Yes Annotation/Comment:: patient had a number of medications with renal clearance that could result in lethargy or confusion intermittently if she has delayed clearance. Gabapentin, Remeron, and most concerning digoxin can build up if renal function isn't normal. We'll check renal clearance at this time as well as repeat white count and a digoxin level. She doesn't appear at this point to be septic. We'll continue to monitor closely. - Problem List Review Problem List Initiated/Reviewed/Updated: Yes
[2017-08-03] MEDS: Docusate Sodium 100 MG Cap PO SCH (20:47)
[2017-08-03] MEDS: Bisacodyl 5 MG Tab PO SCH (20:47)
[2017-08-03] MEDS: Mirtazapine 15 MG Tab PO SCH (20:49)
[2017-08-03] MEDS: Ezetimibe 10 MG Tab PO SCH (20:56)
[2017-08-03] MEDS: Sodium Chloride 0.9% 1,000 ML IV SCH (21:48)
[2017-08-04] MEDS: methylPREDNISolone Sodium Succinate 40 MG/1 ML SDV IVPUSH SCH (03:11)
[2017-08-04] MEDS: Azithromycin 500 MG in Sodium Chloride 0.9% 250 ML IV SCH (05:27)
[2017-08-04] MEDS: Sodium Chloride 0.9% 1,000 ML IV SCH (05:31)
[2017-08-04] MEDS: Insulin Aspart 100 Units/ML 3 ML Pen SUBCUT SCH ×6 (08:07→18:15)
[2017-08-04] MEDS: Insulin Detemir 100 Units/ML 3 ML Pen SUBCUT SCH ×2 (08:09→21:33)
[2017-08-04] MEDS: predniSONE 20 MG Tab PO SCH ×2 (08:19→09:05)
[2017-08-04] MEDS: Allopurinol 100 MG Tab PO SCH (08:20)
[2017-08-04] MEDS: glipiZIDE 5 MG Tab PO SCH ×2 (08:20→18:13)
[2017-08-04] MEDS: Gabapentin 300 MG Cap PO SCH ×2 (08:20→21:20)
[2017-08-04] MEDS: Isosorbide Mononitrate 30 MG Tab.ER PO SCH (08:21)
[2017-08-04] MEDS: Aspirin 81 MG Tab.EC PO SCH (08:21)
[2017-08-04] MEDS: Carvedilol 25 MG Tab PO SCH ×2 (08:21→21:23)
[2017-08-04] MEDS: Albuterol/Ipratropium 3.0-0.5 MG/3 ML Neb Soln NEB PRN (08:48)
--- NOTE | 2017-08-04 11:29 | PCM.PN ---
- General Info Date of Service: 08/04/17 Admission Dx/Problem (Free Text): Multifocal pneumonia, HD #7. Subjective Update: Patient continues to be drowsy. Labs done yesterday did indeed show that the patient had sustained an acute kidney injury which resulted in a bump in her creatinine and likely her mood altering medications have been the cause of her increased drowsiness. However she was able to get up this morning and take a bath. She walked. She is feeling much better from a respiratory standpoint. She still requiring oxygen which she doesn't normally have at home. She denies chest pain, shortness of breath, nausea, vomiting. She did have one loose stool. Functional Status: Reports: Tolerating Diet, Ambulating - Review of Systems General: Reports: No Symptoms Neurological: Reports: Other (Feels more drowsy and sedated than usual.) - Patient Data Vitals - Most Recent: Last Vital Signs Temp 36.4 C 08/04/17 08:00 Pulse 80 08/04/17 09:00 Resp 25 H 08/04/17 08:00 BP 142/81 H 08/04/17 08:21 Pulse Ox 93 L 08/04/17 09:00 Weight - Most Recent: 118.796 kg I&O - Last 24 Hours: Intake & Output 08/03/17 08/04/17 08/04/17 22:59 06:59 14:59 Intake Total 1217 1134 Output Total 600 Balance -600 1217 1134 Lab Results Last 24 Hours: Laboratory Results - last 24 hr 08/03/17 08/03/17 08/03/17 Range/Units 17:31 20:00 20:00 WBC 12.8 H (4.5-12.0) X10-3/uL RBC 4.78 (3.23-5.20) x10(6)uL Hgb 13.3 (11.5-15.5) g/dL Hct 42.3 (30.0-51.3) % MCV 88.4 (80-96) fL MCH 27.9 (27.7-33.6) pg MCHC 31.5 L (32.2-35.4) g/dL RDW 15.8 H (11.5-15.5) % Plt Count 239 (125-369) X10(3)uL MPV 8.6 (7.4-10.4) fL Add Manual Diff Yes Neutrophils % (Manual) 90 H (46-82) % Lymphocytes % (Manual) 5 L (13-37) % Monocytes % (Manual) 5 (4-12) % Hypersegmented Neuts PT (8.7-11.1) INR (0.89-1.13) Sodium 137 (135-145) mmol/L Potassium 5.6 H D (3.5-5.3) mmol/L Chloride 99 L (100-110) mmol/L Carbon Dioxide 28 (23-29) mmol/L BUN > 100 H D (8-23) mg/dL Creatinine 2.9 H* (0.6-1.3) mg/dL Est Cr Clr Drug Dosing 12.04 mL/min Estimated GFR (MDRD) 16 L (>60) BUN/Creatinine Ratio 34.5 H (9-20) Glucose 205 H D (80-116) mg/dL POC Glucose 193 H D (80-116) mg/dL Calcium 9.4 (8.6-10.2) mg/dL Total Bilirubin 0.7 (0.1-1.3) mg/dL AST 37 H D (5-27) IU/L ALT 78 H D (14-26) IU/L Alkaline Phosphatase 97 (56-112) IU/L B-Natriuretic Peptide (0-100) pg/mL Total Protein 7.1 (6.0-8.0) g/dL Albumin 3.8 (3.2-4.6) g/dL Globulin 3.3 g/dL Albumin/Globulin Ratio 1.2 Digoxin (0.8-2.0) ng/mL 08/03/17 08/03/17 08/04/17 Range/Units 20:00 20:58 06:30 WBC (4.5-12.0) X10-3/uL RBC (3.23-5.20) x10(6)uL Hgb (11.5-15.5) g/dL Hct (30.0-51.3) % MCV (80-96) fL MCH (27.7-33.6) pg MCHC (32.2-35.4) g/dL RDW (11.5-15.5) % Plt Count (125-369) X10(3)uL MPV (7.4-10.4) fL Add Manual Diff Neutrophils % (Manual) (46-82) % Lymphocytes % (Manual) (13-37) % Monocytes % (Manual) (4-12) % Hypersegmented Neuts PT 35.2 H* (8.7-11.1) INR 3.40 H (0.89-1.13) Sodium (135-145) mmol/L Potassium (3.5-5.3) mmol/L Chloride (100-110) mmol/L Carbon Dioxide (23-29) mmol/L BUN (8-23) mg/dL Creatinine (0.6-1.3) mg/dL Est Cr Clr Drug Dosing mL/min Estimated GFR (MDRD) (>60) BUN/Creatinine Ratio (9-20) Glucose (80-116) mg/dL POC Glucose 184 H (80-116) mg/dL Calcium (8.6-10.2) mg/dL Total Bilirubin (0.1-1.3) mg/dL AST (5-27) IU/L ALT (14-26) IU/L Alkaline Phosphatase (56-112) IU/L B-Natriuretic Peptide (0-100) pg/mL Total Protein (6.0-8.0) g/dL Albumin (3.2-4.6) g/dL Globulin g/dL Albumin/Globulin Ratio Digoxin 1.2 (0.8-2.0) ng/mL 08/04/17 08/04/17 08/04/17 Range/Units 06:30 06:30 06:30 WBC 12.9 H (4.5-12.0) X10-3/uL RBC 4.58 (3.23-5.20) x10(6)uL Hgb 12.8 (11.5-15.5) g/dL Hct 40.3 (30.0-51.3) % MCV 88.1 (80-96) fL MCH 27.9 (27.7-33.6) pg MCHC 31.7 L (32.2-35.4) g/dL RDW 15.2 (11.5-15.5) % Plt Count 223 (125-369) X10(3)uL MPV 8.4 (7.4-10.4) fL Add Manual Diff Yes Neutrophils % (Manual) 93 H (46-82) % Lymphocytes % (Manual) 5 L (13-37) % Monocytes % (Manual) 2 L (4-12) % Hypersegmented Neuts Few PT (8.7-11.1) INR (0.89-1.13) Sodium 140 (135-145) mmol/L Potassium 5.9 H (3.5-5.3) mmol/L Chloride 106 D (100-110) mmol/L Carbon Dioxide 26 (23-29) mmol/L BUN 127 H* (8-23) mg/dL Creatinine 2.6 H* (0.6-1.3) mg/dL Est Cr Clr Drug Dosing 13.43 mL/min Estimated GFR (MDRD) 18 L (>60) BUN/Creatinine Ratio 48.8 H (9-20) Glucose 198 H (80-116) mg/dL POC Glucose (80-116) mg/dL Calcium 9.0 (8.6-10.2) mg/dL Total Bilirubin (0.1-1.3) mg/dL AST (5-27) IU/L ALT (14-26) IU/L Alkaline Phosphatase (56-112) IU/L B-Natriuretic Peptide 210 H (0-100) pg/mL Total Protein (6.0-8.0) g/dL Albumin (3.2-4.6) g/dL Globulin g/dL Albumin/Globulin Ratio Digoxin (0.8-2.0) ng/mL 08/04/17 08/04/17 Range/Units 06:34 11:05 WBC (4.5-12.0) X10-3/uL RBC (3.23-5.20) x10(6)uL Hgb (11.5-15.5) g/dL Hct (30.0-51.3) % MCV (80-96) fL MCH (27.7-33.6) pg MCHC (32.2-35.4) g/dL RDW (11.5-15.5) % Plt Count (125-369) X10(3)uL MPV (7.4-10.4) fL Add Manual Diff Neutrophils % (Manual) (46-82) % Lymphocytes % (Manual) (13-37) % Monocytes % (Manual) (4-12) % Hypersegmented Neuts PT (8.7-11.1) INR (0.89-1.13) Sodium (135-145) mmol/L Potassium (3.5-5.3) mmol/L Chloride (100-110) mmol/L Carbon Dioxide (23-29) mmol/L BUN (8-23) mg/dL Creatinine (0.6-1.3) mg/dL Est Cr Clr Drug Dosing mL/min Estimated GFR (MDRD) (>60) BUN/Creatinine Ratio (9-20) Glucose (80-116) mg/dL POC Glucose 168 H 189 H (80-116) mg/dL Calcium (8.6-10.2) mg/dL Total Bilirubin (0.1-1.3) mg/dL AST (5-27) IU/L ALT (14-26) IU/L Alkaline Phosphatase (56-112) IU/L B-Natriuretic Peptide (0-100) pg/mL Total Protein (6.0-8.0) g/dL Albumin (3.2-4.6) g/dL Globulin g/dL Albumin/Globulin Ratio Digoxin (0.8-2.0) ng/mL Med Orders - Current: Current Medications Acetaminophen (Tylenol Extra Strength) 1,000 mg PO Q6H PRN PRN Reason: Pain Last Admin: 08/03/17 23:46 Dose: 1,000 mg Albuterol/Ipratropium (Duoneb 3.0-0.5 Mg/3 Ml) 3 ml NEB Q4H PRN PRN Reason: Shortness of Breath Last Admin: 08/04/17 08:48 Dose: 3 ml Allopurinol (Zyloprim) 100 mg PO DAILY [facility] Last Admin: 08/04/17 08:20 Dose: 100 mg Aspirin (Halfprin) 81 mg PO DAILY [facility] Last Admin: 08/04/17 08:21 Dose: 81 mg Bisacodyl (Dulcolax) 15 mg PO BEDTIME [facility] Last Admin: 08/03/17 20:47 Dose: 15 mg Carvedilol (Coreg) 25 mg PO BID [facility] Last Admin: 08/04/17 08:21 Dose: 25 mg Digoxin (Lanoxin) 125 mcg PO Q48H [facility] Last Admin: 08/03/17 08:31 Dose: 125 mcg Docusate Sodium (Colace) 100 mg PO BEDTIME [facility] Last Admin: 08/03/17 20:47 Dose: 100 mg Ezetimibe (Zetia) 10 mg PO BEDTIME [facility] Last Admin: 08/03/17 20:56 Dose: 10 mg Gabapentin (Neurontin) 300 mg PO BID [facility] Last Admin: 08/04/17 08:20 Dose: 300 mg Glipizide (Glucotrol) 5 mg PO BIDMEALS [facility] Last Admin: 08/04/17 08:20 Dose: 5 mg Sodium Chloride (Normal Saline) 250 mls @ 100 mls/hr IV ASDIRECTED [facility] Last Admin: 08/03/17 05:21 Dose: 100 mls/hr Sodium Chloride (Normal Saline) 1,000 mls @ 125 mls/hr IV ASDIRECTED [facility] Last Admin: 08/04/17 05:31 Dose: 125 mls/hr Insulin Aspart (Novolog) 0 unit SUBCUT TIDMEALS [facility] PRN Reason: Protocol Last Admin: 08/04/17 08:08 Dose: 1 units Insulin Aspart (Novolog) 30 unit SUBCUT TIDMEALS [facility] Last Admin: 08/04/17 08:07 Dose: 30 units Insulin Detemir (Levemir) 30 unit SUBCUT BEDTIME [facility] Last Admin: 08/03/17 20:58 Dose: 30 units Insulin Detemir (Levemir) 35 unit SUBCUT DAILY [facility] Last Admin: 08/04/17 08:09 Dose: 35 units Isosorbide Mononitrate (Imdur) 30 mg PO DAILY [facility] Last Admin: 08/04/17 08:21 Dose: 30 mg Magnesium Hydroxide (Milk Of Magnesia) 30 ml PO DAILY PRN PRN Reason: Constipation Last Admin: 08/01/17 16:56 Dose: 30 ml Milnacipran HCl (Savella) 50 mg PO BID [facility] Last Admin: 08/04/17 08:22 Dose: 50 mg Mirtazapine (Remeron) 15 mg PO BEDTIME [facility] Last Admin: 08/03/17 20:49 Dose: 15 mg No Warfarin Dose (Today (08/04/17)) 0 each PO ONETIME ONE Stop: 08/04/17 16:01 Pantoprazole Sodium (Protonix) 40 mg PO Q48H [facility] Last Admin: 08/03/17 06:24 Dose: 40 mg Prednisone (Prednisone) 40 mg PO WITHBREAKFAST [facility] Last Admin: 08/04/17 09:05 Dose: Not Given Simvastatin (Zocor) 80 mg PO BEDTIME [facility] Last Admin: 08/03/17 20:47 Dose: 80 mg Sitagliptin Phosphate (Januvia) 50 mg PO DAILY [facility] Last Admin: 08/04/17 08:20 Dose: 50 mg Sodium Chloride (Saline Flush) 10 ml FLUSH ASDIRECTED PRN PRN Reason: Keep Vein Open Last Admin: 08/03/17 06:01 Dose: 10 ml Warfarin Sodium (Coumadin Sliding Scale) 0 each PO DAILY [facility] Warfarin Sodium (Coumadin) 2.5 mg PO SuMoWeThSa@1600 [facility] Last Admin: 08/01/17 16:20 Dose: 2.5 mg Warfarin Sodium (Coumadin) 5 mg PO TuFr@1600 [facility] Last Admin: 08/02/17 16:10 Dose: 5 mg Discontinued Medications Albuterol/Ipratropium (Duoneb 3.0-0.5 Mg/3 Ml) 3 ml NEB ONETIME ONE Stop: 07/28/17 22:53 Albuterol/Ipratropium (Duoneb 3.0-0.5 Mg/3 Ml) Confirm Administered Dose 3 ml .ROUTE .STK-MED ONE Stop: 07/29/17 01:17 Last Admin: 07/29/17 11:40 Dose: Not Given Azithromycin (Zithromax) Confirm Administered Dose 500 mg .ROUTE .STK-MED ONE Stop: 07/29/17 04:57 Last Admin: 07/29/17 05:07 Dose: Not Given Escitalopram Oxalate (Lexapro) 5 mg PO DAILY [facility] Last Admin: 08/03/17 08:25 Dose: Not Given Gabapentin (Neurontin) 900 mg PO BID [facility] Last Admin: 08/03/17 20:48 Dose: 900 mg Sodium Chloride (Normal Saline) 1,000 mls @ 100 mls/hr IV ASDIRECTED [facility] Last Admin: 07/29/17 21:39 Dose: 100 mls/hr Azithromycin 500 mg/ Sodium (Chloride) 250 mls @ 250 mls/hr IV Q24H [facility] Last Admin: 08/04/17 05:27 Dose: 250 mls/hr Sodium Chloride (Normal Saline) 1,000 mls @ as directed IV .STK-MED ONE Stop: 07/28/17 23:46 Influenza Virus Vaccine (Fluzone Quad 8658-1220) 60 mcg IM .ONCE ONE Stop: 07/29/17 08:16 Insulin Aspart (Novolog) 10 unit SUBCUT ONETIME ONE Stop: 07/29/17 13:38 Last Admin: 07/29/17 13:56 Dose: 10 units Insulin Aspart (Novolog) 10 unit SUBCUT ONETIME ONE Stop: 07/29/17 17:48 Last Admin: 07/29/17 18:00 Dose: 10 units Insulin Aspart (Novolog) 18 unit SUBCUT ONETIME ONE Stop: 07/30/17 00:31 Last Admin: 07/30/17 00:46 Dose: 18 units Insulin Aspart (Novolog) 20 unit SUBCUT ONETIME ONE Stop: 07/30/17 02:46 Last Admin: 07/30/17 02:49 Dose: 20 units Insulin Aspart (Novolog) 15 unit SUBCUT ONETIME ONE Stop: 07/30/17 04:46 Last Admin: 07/30/17 04:55 Dose: 15 units Insulin Detemir (Levemir) 35 unit SUBCUT DAILY [facility] Last Admin: 07/29/17 11:37 Dose: 35 units Iopamidol (Isovue-370 (76%)) 100 ml IV . DIRECTED ONE Stop: 07/29/17 08:56 Last Admin: 07/29/17 02:00 Dose: 79 ml Methylprednisolone Sodium Succinate (Solu-Medrol) Confirm Administered Dose 125 mg .ROUTE .STK-MED ONE Stop: 07/28/17 23:46 Last Admin: 07/29/17 11:28 Dose: Not Given Methylprednisolone Sodium Succinate (Solu-Medrol) 40 mg IVPUSH Q8H [facility] Last Admin: 08/04/17 03:11 Dose: 40 mg Potassium Chloride (Klor-Con M20) 20 meq PO ONETIME ONE Stop: 07/30/17 00:28 Last Admin: 07/30/17 00:46 Dose: 20 meq Prednisone (Prednisone) 20 mg PO WITHBREAKFAST [facility] Last Admin: 07/29/17 09:21 Dose: 20 mg Spironolactone (Aldactone) 25 mg PO DAILY [facility] Last Admin: 08/03/17 08:30 Dose: 25 mg Terbutaline Sulfate (Brethine) 0.25 mg SUBCUT Q4H [facility] Last Admin: 07/29/17 08:33 Dose: 0.25 mg Torsemide (Demadex) 30 mg PO DAILY [facility] Last Admin: 08/03/17 08:30 Dose: 30 mg Torsemide (Demadex) 30 mg PO ASDIRECTED PRN PRN Reason: WEIGHT GAIN MORE THAN 3 LBS Valsartan (Diovan) 20 mg PO DAILY [facility] Last Admin: 08/03/17 08:30 Dose: 20 mg - Exam Quality Assessment: Supplemental Oxygen General: Oriented, Cooperative, Sedated HEENT: Pupils Equal, Pupils Reactive Neck: Supple Lungs: Clear to Auscultation (For the most part with just occasional crackles at the bases.), Normal Respiratory Effort Cardiovascular: Regular Rate, Regular Rhythm, No Murmurs GI/Abdominal Exam: Normal Bowel Sounds, Soft, Non-Tender, No Distention Back Exam: Normal Inspection Extremities: Pedal Edema (Chronic enlargement lower extremities. No pitting edema today.) Skin: Warm, Dry, Intact Psy/Mental Status: Other (Some psychomotor slowing.) - Problem List & Annotations (1) Pneumonia SNOMED Code(s): 146757816 Code(s): J18.9 - PNEUMONIA, UNSPECIFIED ORGANISM Status: Acute Current Visit: Yes Annotation/Comment:: Appears resolved. Clinically patient is no longer coughing much, no longer short of breath, off antibiotic therapy and converted to oral steroid. I don't like that her white count is still slightly elevated, will continue to monitor. May be steroid related. (2) Lethargy SNOMED Code(s): 082748379 Code(s): R53.83 - OTHER FATIGUE Status: Acute Current Visit: Yes Annotation/Comment:: Likely secondary to gabapentin buildup in the system. I decreased her gabapentin to 300 twice a day from 900 twice a day. We'll continue to monitor. (3) MAYA (acute kidney injury) SNOMED Code(s): 77647250 Code(s): N17.9 - ACUTE KIDNEY FAILURE, UNSPECIFIED Status: Acute Current Visit: Yes Annotation/Comment:: Creatinine is trending down with IV fluids. Will need to be very cautious given the patient's long-standing history of diuretic use. Her torsemide and spironolactone are currently being held. (4) Hyperkalemia SNOMED Code(s): 58154018 Code(s): E87.5 - HYPERKALEMIA Status: Acute Current Visit: Yes Annotation/Comment:: Monitor potassium levels closely. Low potassium diet. Likely related to acute kidney injury. 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 Warfarin being held. Continue to manage per pharmacy. - Problem List Review Problem List Initiated/Reviewed/Updated: Yes - My Orders Last 24 Hours: My Active Orders 08/04/17 07:26 Gabapentin [Neurontin] 300 mg PO BID 08/04/17 07:30 predniSONE 40 mg PO WITHBREAKFAST 08/04/17 18:00 CREATININE W/GFR [CHEM] Routine POTASSIUM,K [CHEM] Routine 08/05/17 05:00 COMPREHENSIVE METABOLIC PN,CMP [CHEM] Routine 08/05/17 05:11 CBC WITH AUTO DIFF [HEME] AM
[2017-08-04] MEDS: Mirtazapine 15 MG Tab PO SCH (21:19)
[2017-08-04] MEDS: Ezetimibe 10 MG Tab PO SCH (21:21)
[2017-08-04] MEDS: Bisacodyl 5 MG Tab PO SCH (21:22)
[2017-08-04] MEDS: Docusate Sodium 100 MG Cap PO SCH (21:22)
[2017-08-04] MEDS: Acetaminophen 500 MG Tab PO PRN (22:14)
[2017-08-05] MEDS: Pantoprazole 40 MG Tab.CR PO SCH (06:06)
[2017-08-05] MEDS: Insulin Aspart 100 Units/ML 3 ML Pen SUBCUT SCH ×6 (08:19→18:19)
[2017-08-05] MEDS: Gabapentin 300 MG Cap PO SCH ×2 (08:24→21:37)
[2017-08-05] MEDS: Allopurinol 100 MG Tab PO SCH (08:24)
[2017-08-05] MEDS: Digoxin 125 MCG Tab PO SCH (08:24)
[2017-08-05] MEDS: glipiZIDE 5 MG Tab PO SCH ×2 (08:24→18:22)
[2017-08-05] MEDS: Aspirin 81 MG Tab.EC PO SCH (08:25)
[2017-08-05] MEDS: Isosorbide Mononitrate 30 MG Tab.ER PO SCH (08:25)
[2017-08-05] MEDS: Carvedilol 25 MG Tab PO SCH ×2 (08:26→21:36)
[2017-08-05] MEDS: Insulin Detemir 100 Units/ML 3 ML Pen SUBCUT SCH ×2 (08:28→21:36)
[2017-08-05] MEDS: Albuterol/Ipratropium 3.0-0.5 MG/3 ML Neb Soln NEB PRN (08:47)
[2017-08-05] MEDS: predniSONE 20 MG Tab PO SCH (09:10)
[2017-08-05] MEDS: Torsemide 20 MG Tab PO SCH ×2 (14:02→17:10)
--- NOTE | 2017-08-05 14:18 | PCM.PN ---
- General Info Date of Service: 08/05/17 Subjective Update: 77-year-old female currently in hospital day #8 for community-acquired pneumonia with COPD exacerbation. From a respiratory standpoint she had recovered to the point of discharge but unfortunately she started to show some acute kidney injury and we've been struggling now to normalize her medications and her fluid status. Her potassium today has gone up to 6.1 although her creatinine is down to 2.0. BUN greater than 100. Hemoglobin is stable, so no evidence of GI bleeding. Overall patient notes feeling improved.has been walking in the halls, sitting up to eat, and much better. No chest pain, shortness of breath greatly improved, no abdominal pain, no nausea, no vomiting , no diarrhea. With her acute kidney injury she had become quite somnolent likely secondary to her gabapentin and I had decreased the dose on this which she has tolerated well. Weight has been fairly stable with the patient up about a kilogram from admission. Functional Status: Reports: Tolerating Diet, Ambulating, Urinating - Patient Data Vitals - Most Recent: Last Vital Signs Temp 36.4 C 08/05/17 00:00 Pulse 76 08/05/17 08:51 Resp 22 H 08/05/17 08:00 BP 147/71 H 08/05/17 08:26 Pulse Ox 93 L 08/05/17 08:48 Weight - Most Recent: 119.907 kg I&O - Last 24 Hours: Intake & Output 08/04/17 08/05/17 08/05/17 22:59 06:59 14:59 Intake Total 100 Balance 100 Lab Results Last 24 Hours: Laboratory Results - last 24 hr 08/04/17 08/04/17 08/04/17 Range/Units 17:19 18:25 21:33 WBC (4.5-12.0) X10-3/uL RBC (3.23-5.20) x10(6)uL Hgb (11.5-15.5) g/dL Hct (30.0-51.3) % MCV (80-96) fL MCH (27.7-33.6) pg MCHC (32.2-35.4) g/dL RDW (11.5-15.5) % Plt Count (125-369) X10(3)uL MPV (7.4-10.4) fL Add Manual Diff Neutrophils % (Manual) (46-82) % Lymphocytes % (Manual) (13-37) % Monocytes % (Manual) (4-12) % PT (8.7-11.1) INR (0.89-1.13) Sodium (135-145) mmol/L Potassium 5.8 H (3.5-5.3) mmol/L Chloride (100-110) mmol/L Carbon Dioxide (23-29) mmol/L BUN (8-23) mg/dL Creatinine 2.3 H* (0.6-1.3) mg/dL Est Cr Clr Drug Dosing 15.18 mL/min Estimated GFR (MDRD) 21 L (>60) BUN/Creatinine Ratio (9-20) Glucose (80-116) mg/dL POC Glucose 151 H 177 H (80-116) mg/dL Calcium (8.6-10.2) mg/dL Total Bilirubin (0.1-1.3) mg/dL AST (5-27) IU/L ALT (14-26) IU/L Alkaline Phosphatase (56-112) IU/L Total Protein (6.0-8.0) g/dL Albumin (3.2-4.6) g/dL Globulin g/dL Albumin/Globulin Ratio 08/05/17 08/05/17 08/05/17 Range/Units 06:20 06:20 06:20 WBC 13.4 H (4.5-12.0) X10-3/uL RBC 4.36 (3.23-5.20) x10(6)uL Hgb 12.8 (11.5-15.5) g/dL Hct 38.0 (30.0-51.3) % MCV 87.3 (80-96) fL MCH 29.3 (27.7-33.6) pg MCHC 33.6 (32.2-35.4) g/dL RDW 15.3 (11.5-15.5) % Plt Count 202 (125-369) X10(3)uL MPV 8.5 (7.4-10.4) fL Add Manual Diff Yes Neutrophils % (Manual) 90 H (46-82) % Lymphocytes % (Manual) 4 L (13-37) % Monocytes % (Manual) 6 (4-12) % PT 28.1 H (8.7-11.1) INR 2.72 H (0.89-1.13) Sodium 143 (135-145) mmol/L Potassium 6.1 H (3.5-5.3) mmol/L Chloride 107 (100-110) mmol/L Carbon Dioxide 28 (23-29) mmol/L BUN > 100 H D (8-23) mg/dL Creatinine 2.0 H* (0.6-1.3) mg/dL Est Cr Clr Drug Dosing 17.46 mL/min Estimated GFR (MDRD) 24 L (>60) BUN/Creatinine Ratio 50.0 H (9-20) Glucose 95 D (80-116) mg/dL POC Glucose (80-116) mg/dL Calcium 9.5 (8.6-10.2) mg/dL Total Bilirubin 0.6 (0.1-1.3) mg/dL AST 36 H (5-27) IU/L ALT 79 H (14-26) IU/L Alkaline Phosphatase 83 (56-112) IU/L Total Protein 6.5 (6.0-8.0) g/dL Albumin 3.5 (3.2-4.6) g/dL Globulin 3.0 g/dL Albumin/Globulin Ratio 1.2 08/05/17 08/05/17 Range/Units 06:27 11:35 WBC (4.5-12.0) X10-3/uL RBC (3.23-5.20) x10(6)uL Hgb (11.5-15.5) g/dL Hct (30.0-51.3) % MCV (80-96) fL MCH (27.7-33.6) pg MCHC (32.2-35.4) g/dL RDW (11.5-15.5) % Plt Count (125-369) X10(3)uL MPV (7.4-10.4) fL Add Manual Diff Neutrophils % (Manual) (46-82) % Lymphocytes % (Manual) (13-37) % Monocytes % (Manual) (4-12) % PT (8.7-11.1) INR (0.89-1.13) Sodium (135-145) mmol/L Potassium (3.5-5.3) mmol/L Chloride (100-110) mmol/L Carbon Dioxide (23-29) mmol/L BUN (8-23) mg/dL Creatinine (0.6-1.3) mg/dL Est Cr Clr Drug Dosing mL/min Estimated GFR (MDRD) (>60) BUN/Creatinine Ratio (9-20) Glucose (80-116) mg/dL POC Glucose 100 91 (80-116) mg/dL Calcium (8.6-10.2) mg/dL Total Bilirubin (0.1-1.3) mg/dL AST (5-27) IU/L ALT (14-26) IU/L Alkaline Phosphatase (56-112) IU/L Total Protein (6.0-8.0) g/dL Albumin (3.2-4.6) g/dL Globulin g/dL Albumin/Globulin Ratio Med Orders - Current: Current Medications Acetaminophen (Tylenol Extra Strength) 1,000 mg PO Q6H PRN PRN Reason: Pain Last Admin: 08/04/17 22:14 Dose: 1,000 mg Albuterol/Ipratropium (Duoneb 3.0-0.5 Mg/3 Ml) 3 ml NEB Q4H PRN PRN Reason: Shortness of Breath Last Admin: 08/05/17 08:47 Dose: 3 ml Allopurinol (Zyloprim) 100 mg PO DAILY [facility] Last Admin: 08/05/17 08:24 Dose: 100 mg Aspirin (Halfprin) 81 mg PO DAILY [facility] Last Admin: 08/05/17 08:25 Dose: 81 mg Bisacodyl (Dulcolax) 15 mg PO BEDTIME [facility] Last Admin: 08/04/17 21:22 Dose: 15 mg Carvedilol (Coreg) 25 mg PO BID [facility] Last Admin: 08/05/17 08:26 Dose: 25 mg Digoxin (Lanoxin) 125 mcg PO Q48H [facility] Last Admin: 08/05/17 08:24 Dose: 125 mcg Docusate Sodium (Colace) 100 mg PO BEDTIME [facility] Last Admin: 08/04/17 21:22 Dose: 100 mg Ezetimibe (Zetia) 10 mg PO BEDTIME [facility] Last Admin: 08/04/17 21:21 Dose: 10 mg Gabapentin (Neurontin) 300 mg PO BID [facility] Last Admin: 08/05/17 08:24 Dose: 300 mg Glipizide (Glucotrol) 5 mg PO BIDMEALS [facility] Last Admin: 08/05/17 08:24 Dose: 5 mg Sodium Chloride (Normal Saline) 250 mls @ 100 mls/hr IV ASDIRECTED [facility] Last Admin: 08/03/17 05:21 Dose: 100 mls/hr Sodium Chloride (Normal Saline) 1,000 mls @ 125 mls/hr IV ASDIRECTED [facility] Last Admin: 08/04/17 05:31 Dose: 125 mls/hr Sodium Chloride (Normal Saline) 1,000 mls @ 75 mls/hr IV ASDIRECTED [facility] Stop: 08/07/17 02:49 Insulin Aspart (Novolog) 0 unit SUBCUT TIDMEALS [facility] PRN Reason: Protocol Last Admin: 08/05/17 12:00 Dose: Not Given Insulin Aspart (Novolog) 30 unit SUBCUT TIDMEALS [facility] Last Admin: 08/05/17 13:00 Dose: Not Given Insulin Detemir (Levemir) 30 unit SUBCUT BEDTIME [facility] Last Admin: 08/04/17 21:33 Dose: 30 units Insulin Detemir (Levemir) 35 unit SUBCUT DAILY [facility] Last Admin: 08/05/17 08:28 Dose: 35 units Isosorbide Mononitrate (Imdur) 30 mg PO DAILY [facility] Last Admin: 08/05/17 08:25 Dose: 30 mg Magnesium Hydroxide (Milk Of Magnesia) 30 ml PO DAILY PRN PRN Reason: Constipation Last Admin: 08/01/17 16:56 Dose: 30 ml Milnacipran HCl (Savella) 50 mg PO BID [facility] Last Admin: 08/05/17 08:24 Dose: 50 mg Mirtazapine (Remeron) 15 mg PO BEDTIME [facility] Last Admin: 08/04/17 21:19 Dose: 15 mg Pantoprazole Sodium (Protonix) 40 mg PO Q48H [facility] Last Admin: 08/05/17 06:06 Dose: 40 mg Prednisone (Prednisone) 40 mg PO WITHBREAKFAST [facility] Last Admin: 08/05/17 09:10 Dose: 40 mg Simvastatin (Zocor) 80 mg PO BEDTIME [facility] Last Admin: 08/04/17 21:22 Dose: 80 mg Sitagliptin Phosphate (Januvia) 50 mg PO DAILY [facility] Last Admin: 08/05/17 08:24 Dose: 50 mg Sodium Chloride (Saline Flush) 10 ml FLUSH ASDIRECTED PRN PRN Reason: Keep Vein Open Last Admin: 08/03/17 06:01 Dose: 10 ml Torsemide (Demadex) 20 mg PO BIDDIURETIC [facility] Last Admin: 08/05/17 14:02 Dose: 20 mg Warfarin Sodium (Coumadin Sliding Scale) 0 each PO DAILY [facility] Warfarin Sodium (Coumadin) 2.5 mg PO 1600 [facility] Discontinued Medications Albuterol/Ipratropium (Duoneb 3.0-0.5 Mg/3 Ml) 3 ml NEB ONETIME ONE Stop: 07/28/17 22:53 Albuterol/Ipratropium (Duoneb 3.0-0.5 Mg/3 Ml) Confirm Administered Dose 3 ml .ROUTE .STK-MED ONE Stop: 07/29/17 01:17 Last Admin: 07/29/17 11:40 Dose: Not Given Azithromycin (Zithromax) Confirm Administered Dose 500 mg .ROUTE .STK-MED ONE Stop: 07/29/17 04:57 Last Admin: 07/29/17 05:07 Dose: Not Given Escitalopram Oxalate (Lexapro) 5 mg PO DAILY [facility] Last Admin: 08/03/17 08:25 Dose: Not Given Gabapentin (Neurontin) 900 mg PO BID [facility] Last Admin: 08/03/17 20:48 Dose: 900 mg Sodium Chloride (Normal Saline) 1,000 mls @ 100 mls/hr IV ASDIRECTED [facility] Last Admin: 07/29/17 21:39 Dose: 100 mls/hr Azithromycin 500 mg/ Sodium (Chloride) 250 mls @ 250 mls/hr IV Q24H [facility] Last Admin: 08/04/17 05:27 Dose: 250 mls/hr Sodium Chloride (Normal Saline) 1,000 mls @ as directed IV .STK-MED ONE Stop: 07/28/17 23:46 Influenza Virus Vaccine (Fluzone Quad [id number]) 60 mcg IM .ONCE ONE Stop: 07/29/17 08:16 Insulin Aspart (Novolog) 10 unit SUBCUT ONETIME ONE Stop: 07/29/17 13:38 Last Admin: 07/29/17 13:56 Dose: 10 units Insulin Aspart (Novolog) 10 unit SUBCUT ONETIME ONE Stop: 07/29/17 17:48 Last Admin: 07/29/17 18:00 Dose: 10 units Insulin Aspart (Novolog) 18 unit SUBCUT ONETIME ONE Stop: 07/30/17 00:31 Last Admin: 07/30/17 00:46 Dose: 18 units Insulin Aspart (Novolog) 20 unit SUBCUT ONETIME ONE Stop: 07/30/17 02:46 Last Admin: 07/30/17 02:49 Dose: 20 units Insulin Aspart (Novolog) 15 unit SUBCUT ONETIME ONE Stop: 07/30/17 04:46 Last Admin: 07/30/17 04:55 Dose: 15 units Insulin Detemir (Levemir) 35 unit SUBCUT DAILY [facility] Last Admin: 07/29/17 11:37 Dose: 35 units Iopamidol (Isovue-370 (76%)) 100 ml IV . DIRECTED ONE Stop: 07/29/17 08:56 Last Admin: 07/29/17 02:00 Dose: 79 ml Methylprednisolone Sodium Succinate (Solu-Medrol) Confirm Administered Dose 125 mg .ROUTE .STK-MED ONE Stop: 07/28/17 23:46 Last Admin: 07/29/17 11:28 Dose: Not Given Methylprednisolone Sodium Succinate (Solu-Medrol) 40 mg IVPUSH Q8H [facility] Last Admin: 08/04/17 03:11 Dose: 40 mg No Warfarin Dose (Today (08/04/17)) 0 each PO ONETIME ONE Stop: 08/04/17 16:01 Last Admin: 08/04/17 17:08 Dose: Not Given Potassium Chloride (Klor-Con M20) 20 meq PO ONETIME ONE Stop: 07/30/17 00:28 Last Admin: 07/30/17 00:46 Dose: 20 meq Prednisone (Prednisone) 20 mg PO WITHBREAKFAST [facility] Last Admin: 07/29/17 09:21 Dose: 20 mg Spironolactone (Aldactone) 25 mg PO DAILY [facility] Last Admin: 08/03/17 08:30 Dose: 25 mg Terbutaline Sulfate (Brethine) 0.25 mg SUBCUT Q4H [facility] Last Admin: 07/29/17 08:33 Dose: 0.25 mg Torsemide (Demadex) 30 mg PO DAILY [facility] Last Admin: 08/03/17 08:30 Dose: 30 mg Torsemide (Demadex) 30 mg PO ASDIRECTED PRN PRN Reason: WEIGHT GAIN MORE THAN 3 LBS Valsartan (Diovan) 20 mg PO DAILY [facility] Last Admin: 08/03/17 08:30 Dose: 20 mg Warfarin Sodium (Coumadin) 2.5 mg PO SuMoWeThSa@1600 [facility] Last Admin: 08/01/17 16:20 Dose: 2.5 mg Warfarin Sodium (Coumadin) 5 mg PO TuFr@1600 [facility] Last Admin: 08/02/17 16:10 Dose: 5 mg - Exam Quality Assessment: Supplemental Oxygen General: Alert, Cooperative, No Acute Distress HEENT: Pupils Equal, Pupils Reactive Neck: Supple Lungs: Clear to Auscultation, Normal Respiratory Effort, Rhonchi (some rhonchi but the patient was lying down when I came to examine her again today.) Cardiovascular: Regular Rate, Regular Rhythm GI/Abdominal Exam: Normal Bowel Sounds, Soft, Non-Tender, No Distention Extremities: Pedal Edema (chronic stasis changes.) - Problem List & Annotations (1) Pneumonia SNOMED Code(s): 561684332 Code(s): J18.9 - PNEUMONIA, UNSPECIFIED ORGANISM Status: Acute Current Visit: Yes Annotation/Comment:: Resolved. Continue PO prednisone. (2) Lethargy SNOMED Code(s): 132863612 Code(s): R53.83 - OTHER FATIGUE Status: Acute Current Visit: Yes Annotation/Comment:: Improved. Patient up in halls and doing much better. Continue current dose of gabapentin. Still showing intermittent confusion but I suspect this is again from her MAYA and concomitant clearance issues. (3) MAYA (acute kidney injury) SNOMED Code(s): 83194375 Code(s): N17.9 - ACUTE KIDNEY FAILURE, UNSPECIFIED Status: Acute Current Visit: Yes Annotation/Comment:: Creatinine is down, but potassium is up and patient's BUN is up. This likely reflects a prerenal azotemia. I am going to start IVF at 75 cc/hr NS and give her 2L very slowly, and restart her torsemide to see if we can get rid of the potassium and bring her BUN down as well. That is the priority at this time. Will recheck a K at 1800. Has been voiding well , no potassium supplementation, low potassium diet. Restarting torsemide along with fluids to help remove urea and K may resolve the issue. (4) Hyperkalemia SNOMED Code(s): 95356125 Code(s): E87.5 - HYPERKALEMIA Status: Acute Current Visit: Yes Annotation/Comment:: Higher today. Start aggressive fluids/diuretics to treat as above. (5) Anticoagulant long-term use SNOMED Code(s): 892668720 Code(s): Z79.01 - FOOD AIDE (CURRENT) USE OF ANTICOAGULANTS Status: Acute Current Visit: Yes Annotation/Comment:: Currently therapeutic. Continue to manage per pharmacy. (6) Elevated LFTs SNOMED Code(s): 954778615 Code(s): R79.89 - OTHER SPECIFIED ABNORMAL FINDINGS OF BLOOD CHEMISTRY Status: Acute Current Visit: Yes Annotation/Comment:: Liver enzymes are now slightly elevated from previous. Cannot trend these without more data points. Will recheck tomorrow. - Problem List Review Problem List Initiated/Reviewed/Updated: Yes - My Orders Last 24 Hours: My Active Orders 08/05/17 13:30 Sodium Chloride 0.9% @ 75 MLS/HR(1000ml) Sodium Chloride 0.9% [Normal Saline] 1 ,000 ml IV ASDIRECTED Torsemide [Demadex] 20 mg PO BIDDIURETIC 08/05/17 16:00 Warfarin [Coumadin] 2.5 mg PO 1600 08/05/17 18:00 POTASSIUM,K [CHEM] Routine 08/06/17 05:00 COMPREHENSIVE METABOLIC PN,CMP [CHEM] DAILY 08/06/17 05:11 CBC WITH AUTO DIFF [HEME] DAILY 08/07/17 05:00 COMPREHENSIVE METABOLIC PN,CMP [CHEM] DAILY 08/08/17 05:00 COMPREHENSIVE METABOLIC PN,CMP [CHEM] DAILY 08/09/17 05:00 COMPREHENSIVE METABOLIC PN,CMP [CHEM] DAILY 08/10/17 05:00 COMPREHENSIVE METABOLIC PN,CMP [CHEM] DAILY 08/11/17 05:00 COMPREHENSIVE METABOLIC PN,CMP [CHEM] DAILY 08/12/17 05:00 COMPREHENSIVE METABOLIC PN,CMP [CHEM] DAILY
[2017-08-05] MEDS ORDERED: Warfarin 2.5 MG Tab PO SCH (16:00)
[2017-08-05] MEDS: Sodium Chloride 0.9% 1,000 ML IV SCH (18:15)
[2017-08-05] MEDS: Docusate Sodium 100 MG Cap PO SCH (21:35)
[2017-08-05] MEDS: Bisacodyl 5 MG Tab PO SCH (21:36)
[2017-08-05] MEDS: Mirtazapine 15 MG Tab PO SCH (21:37)
[2017-08-05] MEDS: Ezetimibe 10 MG Tab PO SCH (21:38)
--- NOTE | 2017-08-06 08:20 | PCM.PN ---
- General Info Date of Service: 08/06/17 Subjective Update: Patient is a 77-year-old female currently hospital day #9. She was initially admitted for pneumonia and completed her course of therapy for this. However she struggled with fluid balance. She has kidney issues and systolic and diastolic congestive heart failure and developed intravascular volume depletion with a very high BUNs and increased creatinine and gradually had increasing potassium as well. Had previously been on spironolactone and torsemide and these had been held and given 1 L fluid but this wasn't adequate to resuscitate her. Yesterday she was given 2 more liters of IV fluids along with 20 mg torsemide by mouth twice a day and had a significant diuresis. Potassium is now down to 5.2, creatinine is 1.9 and BUN is now 101 and her weight is down 6 kg. She is much more clear today. I had a long visit with her daughter this morning regarding her current situation and also with the patient. I had significantly decreased her gabapentin when she started to become confused and had an increased creatinine and stopped it altogether today. She also has been having low blood sugars and her insulin was held 2 yesterday. Blood sugars at mealtimes have been in the 80s and 90s and she had 1 low this morning at 56. The patient denies chest pain, denies shortness of breath, denies abdominal pain , is having loose stool but only once daily. No blood in it. We tried to place a PICC line today because she is such a difficult draw but unfortunately were unsuccessful likely due to the patient's morbid obesity. She tells me she still feeling pretty down in the dumps. She has been emotionally quite labile throughout her hospital stay. Initially there had been some confusion with her Lexapro which had been discontinued because it made her emotional and confused but this had been restarted on admission because it was on her list. Once this was stopped it seemed to gabapentin was continuing to cause confusion and lethargy. Her 5 months ago and this has affected her tremendously. However, she tells me " I don't want to ." No nausea or vomiting. Functional Status: Reports: Pain Controlled, Tolerating Diet, Ambulating, Urinating - Patient Data Vitals - Most Recent: Last Vital Signs Temp 36.4 C 08/06/17 00:00 Pulse 79 08/06/17 00:00 Resp 22 H 08/06/17 00:00 BP 140/73 08/06/17 00:00 Pulse Ox 91 L 08/06/17 00:00 Weight - Most Recent: 113.988 kg I&O - Last 24 Hours: Intake & Output 08/05/17 08/06/17 08/06/17 22:59 06:59 14:59 Intake Total 507 Balance 507 Lab Results Last 24 Hours: Laboratory Results - last 24 hr 08/05/17 08/05/17 08/05/17 Range/Units 17:55 18:05 21:34 WBC (4.5-12.0) X10-3/uL RBC (3.23-5.20) x10(6)uL Hgb (11.5-15.5) g/dL Hct (30.0-51.3) % MCV (80-96) fL MCH (27.7-33.6) pg MCHC (32.2-35.4) g/dL RDW (11.5-15.5) % Plt Count (125-369) X10(3)uL MPV (7.4-10.4) fL Add Manual Diff Neutrophils % (Manual) (46-82) % Lymphocytes % (Manual) (13-37) % Monocytes % (Manual) (4-12) % PT (8.7-11.1) INR (0.89-1.13) Sodium (135-145) mmol/L Potassium 6.1 H (3.5-5.3) mmol/L Chloride (100-110) mmol/L Carbon Dioxide (23-29) mmol/L BUN (8-23) mg/dL Creatinine (0.6-1.3) mg/dL Est Cr Clr Drug Dosing mL/min Estimated GFR (MDRD) (>60) BUN/Creatinine Ratio (9-20) Glucose (80-116) mg/dL POC Glucose 165 H 164 H (80-116) mg/dL Calcium (8.6-10.2) mg/dL Total Bilirubin (0.1-1.3) mg/dL AST (5-27) IU/L ALT (14-26) IU/L Alkaline Phosphatase (56-112) IU/L Total Protein (6.0-8.0) g/dL Albumin (3.2-4.6) g/dL Globulin g/dL Albumin/Globulin Ratio 08/06/17 08/06/17 08/06/17 Range/Units 05:32 05:46 06:01 WBC (4.5-12.0) X10-3/uL RBC (3.23-5.20) x10(6)uL Hgb (11.5-15.5) g/dL Hct (30.0-51.3) % MCV (80-96) fL MCH (27.7-33.6) pg MCHC (32.2-35.4) g/dL RDW (11.5-15.5) % Plt Count (125-369) X10(3)uL MPV (7.4-10.4) fL Add Manual Diff Neutrophils % (Manual) (46-82) % Lymphocytes % (Manual) (13-37) % Monocytes % (Manual) (4-12) % PT (8.7-11.1) INR (0.89-1.13) Sodium (135-145) mmol/L Potassium (3.5-5.3) mmol/L Chloride (100-110) mmol/L Carbon Dioxide (23-29) mmol/L BUN (8-23) mg/dL Creatinine (0.6-1.3) mg/dL Est Cr Clr Drug Dosing mL/min Estimated GFR (MDRD) (>60) BUN/Creatinine Ratio (9-20) Glucose (80-116) mg/dL POC Glucose 52 L D 54 L 59 L (80-116) mg/dL Calcium (8.6-10.2) mg/dL Total Bilirubin (0.1-1.3) mg/dL AST (5-27) IU/L ALT (14-26) IU/L Alkaline Phosphatase (56-112) IU/L Total Protein (6.0-8.0) g/dL Albumin (3.2-4.6) g/dL Globulin g/dL Albumin/Globulin Ratio 08/06/17 08/06/17 08/06/17 Range/Units 06:35 06:35 06:35 WBC 12.1 H (4.5-12.0) X10-3/uL RBC 4.75 (3.23-5.20) x10(6)uL Hgb 13.4 (11.5-15.5) g/dL Hct 41.7 (30.0-51.3) % MCV 87.8 (80-96) fL MCH 28.1 (27.7-33.6) pg MCHC 32.0 L (32.2-35.4) g/dL RDW 15.8 H (11.5-15.5) % Plt Count 229 (125-369) X10(3)uL MPV 8.2 (7.4-10.4) fL Add Manual Diff Yes Neutrophils % (Manual) 81 (46-82) % Lymphocytes % (Manual) 10 L (13-37) % Monocytes % (Manual) 9 (4-12) % PT 19.1 H (8.7-11.1) INR 1.87 H (0.89-1.13) Sodium 146 H (135-145) mmol/L Potassium 5.2 (3.5-5.3) mmol/L Chloride 103 (100-110) mmol/L Carbon Dioxide 34 H (23-29) mmol/L BUN 101 H (8-23) mg/dL Creatinine 1.9 H (0.6-1.3) mg/dL Est Cr Clr Drug Dosing 18.38 mL/min Estimated GFR (MDRD) 26 L (>60) BUN/Creatinine Ratio 53.2 H (9-20) Glucose 128 H (80-116) mg/dL POC Glucose (80-116) mg/dL Calcium 9.8 (8.6-10.2) mg/dL Total Bilirubin 0.8 (0.1-1.3) mg/dL AST 47 H D (5-27) IU/L ALT 85 H (14-26) IU/L Alkaline Phosphatase 84 (56-112) IU/L Total Protein 6.5 (6.0-8.0) g/dL Albumin 3.5 (3.2-4.6) g/dL Globulin 3.0 g/dL Albumin/Globulin Ratio 1.2 08/06/ Range/Units 10:36 WBC (4.5-12.0) X10-3/uL RBC (3.23-5.20) x10(6)uL Hgb (11.5-15.5) g/dL Hct (30.0-51.3) % MCV (80-96) fL MCH (27.7-33.6) pg MCHC (32.2-35.4) g/dL RDW (11.5-15.5) % Plt Count (125-369) X10(3)uL MPV (7.4-10.4) fL Add Manual Diff Neutrophils % (Manual) (46-82) % Lymphocytes % (Manual) (13-37) % Monocytes % (Manual) (4-12) % PT (8.7-11.1) INR (0.89-1.13) Sodium (135-145) mmol/L Potassium (3.5-5.3) mmol/L Chloride (100-110) mmol/L Carbon Dioxide (23-29) mmol/L BUN (8-23) mg/dL Creatinine (0.6-1.3) mg/dL Est Cr Clr Drug Dosing mL/min Estimated GFR (MDRD) (>60) BUN/Creatinine Ratio (9-20) Glucose (80-116) mg/dL POC Glucose 165 H D (80-116) mg/dL Calcium (8.6-10.2) mg/dL Total Bilirubin (0.1-1.3) mg/dL AST (5-27) IU/L ALT (14-26) IU/L Alkaline Phosphatase (56-112) IU/L Total Protein (6.0-8.0) g/dL Albumin (3.2-4.6) g/dL Globulin g/dL Albumin/Globulin Ratio Med Orders - Current: Current Medications Acetaminophen (Tylenol Extra Strength) 1,000 mg PO Q6H PRN PRN Reason: Pain Last Admin: 08/04/17 22:14 Dose: 1,000 mg Albuterol/Ipratropium (Duoneb 3.0-0.5 Mg/3 Ml) 3 ml NEB Q4H PRN PRN Reason: Shortness of Breath Last Admin: 08/05/17 08:47 Dose: 3 ml Allopurinol (Zyloprim) 100 mg PO DAILY [facility] Last Admin: 08/05/17 08:24 Dose: 100 mg Aspirin (Halfprin) 81 mg PO DAILY [facility] Last Admin: 08/05/17 08:25 Dose: 81 mg Bisacodyl (Dulcolax) 15 mg PO BEDTIME [facility] Last Admin: 08/05/17 21:36 Dose: 15 mg Carvedilol (Coreg) 25 mg PO BID [facility] Last Admin: 08/05/17 21:36 Dose: 25 mg Digoxin (Lanoxin) 125 mcg PO Q48H [facility] Last Admin: 08/05/17 08:24 Dose: 125 mcg Docusate Sodium (Colace) 100 mg PO BEDTIME [facility] Last Admin: 08/05/17 21:35 Dose: 100 mg Ezetimibe (Zetia) 10 mg PO BEDTIME [facility] Last Admin: 08/05/17 21:38 Dose: 10 mg Gabapentin (Neurontin) 300 mg PO BID [facility] Last Admin: 08/05/17 21:37 Dose: 300 mg Glipizide (Glucotrol) 5 mg PO BIDMEALS [facility] Last Admin: 08/05/17 18:22 Dose: 5 mg Sodium Chloride (Normal Saline) 250 mls @ 100 mls/hr IV ASDIRECTED [facility] Last Admin: 08/03/17 05:21 Dose: 100 mls/hr Sodium Chloride (Normal Saline) 1,000 mls @ 125 mls/hr IV ASDIRECTED [facility] Last Admin: 08/04/17 05:31 Dose: 125 mls/hr Sodium Chloride (Normal Saline) 1,000 mls @ 75 mls/hr IV ASDIRECTED [facility] Stop: 08/07/17 02:49 Last Admin: 08/05/17 18:15 Dose: 75 mls/hr Insulin Aspart (Novolog) 0 unit SUBCUT TIDMEALS [facility] PRN Reason: Protocol Last Admin: 08/05/17 18:19 Dose: 1 units Insulin Aspart (Novolog) 15 unit SUBCUT TIDMEALS [facility] Insulin Detemir (Levemir) 25 unit SUBCUT DAILY [facility] Insulin Detemir (Levemir) 20 unit SUBCUT BEDTIME [facility] Isosorbide Mononitrate (Imdur) 30 mg PO DAILY [facility] Last Admin: 08/05/17 08:25 Dose: 30 mg Magnesium Hydroxide (Milk Of Magnesia) 30 ml PO DAILY PRN PRN Reason: Constipation Last Admin: 08/01/17 16:56 Dose: 30 ml Milnacipran HCl (Savella) 50 mg PO BID [facility] Last Admin: 08/05/17 21:37 Dose: 50 mg Mirtazapine (Remeron) 15 mg PO BEDTIME [facility] Last Admin: 08/05/17 21:37 Dose: 15 mg Pantoprazole Sodium (Protonix) 40 mg PO Q48H [facility] Last Admin: 08/05/17 06:06 Dose: 40 mg Prednisone (Prednisone) 20 mg PO WITHBREAKFAST [facility] Simvastatin (Zocor) 80 mg PO BEDTIME [facility] Last Admin: 08/05/17 21:38 Dose: 80 mg Sitagliptin Phosphate (Januvia) 50 mg PO DAILY [facility] Last Admin: 08/05/17 08:24 Dose: 50 mg Sodium Chloride (Saline Flush) 10 ml FLUSH ASDIRECTED PRN PRN Reason: Keep Vein Open Last Admin: 08/03/17 06:01 Dose: 10 ml Torsemide (Demadex) 20 mg PO BIDDIURETIC [facility] Last Admin: 08/05/17 17:10 Dose: 20 mg Warfarin Sodium (Coumadin Sliding Scale) 0 each PO DAILY [facility] Warfarin Sodium (Coumadin) 2.5 mg PO 1600 [facility] Last Admin: 08/05/17 17:00 Dose: 2.5 mg Discontinued Medications Albuterol/Ipratropium (Duoneb 3.0-0.5 Mg/3 Ml) 3 ml NEB ONETIME ONE Stop: 07/28/17 22:53 Albuterol/Ipratropium (Duoneb 3.0-0.5 Mg/3 Ml) Confirm Administered Dose 3 ml .ROUTE .STK-MED ONE Stop: 07/29/17 01:17 Last Admin: 07/29/17 11:40 Dose: Not Given Azithromycin (Zithromax) Confirm Administered Dose 500 mg .ROUTE .STK-MED ONE Stop: 07/29/17 04:57 Last Admin: 07/29/17 05:07 Dose: Not Given Escitalopram Oxalate (Lexapro) 5 mg PO DAILY [facility] Last Admin: 08/03/17 08:25 Dose: Not Given Gabapentin (Neurontin) 900 mg PO BID [facility] Last Admin: 08/03/17 20:48 Dose: 900 mg Sodium Chloride (Normal Saline) 1,000 mls @ 100 mls/hr IV ASDIRECTED [facility] Last Admin: 07/29/17 21:39 Dose: 100 mls/hr Azithromycin 500 mg/ Sodium (Chloride) 250 mls @ 250 mls/hr IV Q24H [facility] Last Admin: 08/04/17 05:27 Dose: 250 mls/hr Sodium Chloride (Normal Saline) 1,000 mls @ as directed IV .STK-MED ONE Stop: 07/28/17 23:46 Influenza Virus Vaccine (Fluzone Quad [id number]) 60 mcg IM .ONCE ONE Stop: 07/29/17 08:16 Insulin Aspart (Novolog) 10 unit SUBCUT ONETIME ONE Stop: 07/29/17 13:38 Last Admin: 07/29/17 13:56 Dose: 10 units Insulin Aspart (Novolog) 10 unit SUBCUT ONETIME ONE Stop: 07/29/17 17:48 Last Admin: 07/29/17 18:00 Dose: 10 units Insulin Aspart (Novolog) 30 unit SUBCUT TIDMEALS [facility] Last Admin: 08/05/17 18:19 Dose: 30 units Insulin Aspart (Novolog) 18 unit SUBCUT ONETIME ONE Stop: 07/30/17 00:31 Last Admin: 07/30/17 00:46 Dose: 18 units Insulin Aspart (Novolog) 20 unit SUBCUT ONETIME ONE Stop: 07/30/17 02:46 Last Admin: 07/30/17 02:49 Dose: 20 units Insulin Aspart (Novolog) 15 unit SUBCUT ONETIME ONE Stop: 07/30/17 04:46 Last Admin: 07/30/17 04:55 Dose: 15 units Insulin Detemir (Levemir) 35 unit SUBCUT DAILY [facility] Last Admin: 07/29/17 11:37 Dose: 35 units Insulin Detemir (Levemir) 30 unit SUBCUT BEDTIME [facility] Last Admin: 08/05/17 21:36 Dose: 30 units Insulin Detemir (Levemir) 35 unit SUBCUT DAILY [facility] Last Admin: 08/05/17 08:28 Dose: 35 units Iopamidol (Isovue-370 (76%)) 100 ml IV . DIRECTED ONE Stop: 07/29/17 08:56 Last Admin: 07/29/17 02:00 Dose: 79 ml Methylprednisolone Sodium Succinate (Solu-Medrol) Confirm Administered Dose 125 mg .ROUTE .STK-MED ONE Stop: 07/28/17 23:46 Last Admin: 07/29/17 11:28 Dose: Not Given Methylprednisolone Sodium Succinate (Solu-Medrol) 40 mg IVPUSH Q8H [facility] Last Admin: 08/04/17 03:11 Dose: 40 mg No Warfarin Dose (Today (08/04/17)) 0 each PO ONETIME ONE Stop: 08/04/17 16:01 Last Admin: 08/04/17 17:08 Dose: Not Given Potassium Chloride (Klor-Con M20) 20 meq PO ONETIME ONE Stop: 07/30/17 00:28 Last Admin: 07/30/17 00:46 Dose: 20 meq Prednisone (Prednisone) 20 mg PO WITHBREAKFAST [facility] Last Admin: 07/29/17 09:21 Dose: 20 mg Prednisone (Prednisone) 40 mg PO WITHBREAKFAST [facility] Last Admin: 08/05/17 09:10 Dose: 40 mg Spironolactone (Aldactone) 25 mg PO DAILY [facility] Last Admin: 08/03/17 08:30 Dose: 25 mg Terbutaline Sulfate (Brethine) 0.25 mg SUBCUT Q4H [facility] Last Admin: 07/29/17 08:33 Dose: 0.25 mg Torsemide (Demadex) 30 mg PO DAILY [facility] Last Admin: 08/03/17 08:30 Dose: 30 mg Torsemide (Demadex) 30 mg PO ASDIRECTED PRN PRN Reason: WEIGHT GAIN MORE THAN 3 LBS Valsartan (Diovan) 20 mg PO DAILY [facility] Last Admin: 08/03/17 08:30 Dose: 20 mg Warfarin Sodium (Coumadin) 2.5 mg PO SuMoWeThSa@1600 [facility] Last Admin: 08/01/17 16:20 Dose: 2.5 mg Warfarin Sodium (Coumadin) 5 mg PO TuFr@1600 [facility] Last Admin: 08/02/17 16:10 Dose: 5 mg - Exam Quality Assessment: Supplemental Oxygen General: Alert, Oriented (Oriented to person time and the [facility] but isn't sure if she is in the hospital or senior living until I oriented her to recall the name of the hospital.), Cooperative HEENT: Pupils Equal, Pupils Reactive Neck: Supple Lungs: Clear to Auscultation, Normal Respiratory Effort Cardiovascular: Regular Rate, Regular Rhythm, No Murmurs GI/Abdominal Exam: Normal Bowel Sounds, Soft, Non-Tender, No Distention Back Exam: Normal Inspection Extremities: Other (Slight pedal edema, upper arms show bruising from blood pressure cuff and from attempt at PICC placement. ) Skin: Warm, Dry, Intact, Ecchymosis (as above) Neurological: No New Focal Deficit Psy/Mental Status: Alert - Problem List & Annotations (1) Pneumonia SNOMED Code(s): 068562318 Code(s): J18.9 - PNEUMONIA, UNSPECIFIED ORGANISM Status: Acute Current Visit: Yes Annotation/Comment:: Resolved. Continue PO prednisone but decrease to 20 mg today. (2) Lethargy SNOMED Code(s): 137346803 Code(s): R53.83 - OTHER FATIGUE Status: Acute Current Visit: Yes Annotation/Comment:: Improved but still groggy. Recommended d/c'ing gabapentin at this time. Seizure risk is low because of taper but still should be monitored. Urea has also improved but is still quite elevated. (3) MAYA (acute kidney injury) SNOMED Code(s): 17680939 Code(s): N17.9 - ACUTE KIDNEY FAILURE, UNSPECIFIED Status: Acute Current Visit: Yes Annotation/Comment:: Patient responded very well to fluid flush. Weight is down 6 kg(!) and Creatinine is still slightly elevated above baseline (1.9) but still better than yesterday. BUN is also now in readable range which should result in better mental status. Will continue fluid flush but IV access is an issue and attempted picc line as difficult to draw and start IVs. However , was unsuccessful. Patient likely will be here 3-4 more days, at least today and tomorrow to continue fluids and careful monitoring of labs, then restarting home meds and monitoring for a day or so to ensure she tolerates this. (4) Hyperkalemia SNOMED Code(s): 03371046 Code(s): E87.5 - HYPERKALEMIA Status: Acute Current Visit: Yes Annotation/Comment:: Much improved. K down to 5.2. Continue fluid flush. Spironolactone may not be a good choice in the future and if restarted for her heart failure will need to be monitored very closely for hyperkalemia. (5) Anticoagulant long-term use SNOMED Code(s): 946407020 Code(s): Z79.01 - HEART SURGEON (CURRENT) USE OF ANTICOAGULANTS Status: Acute Current Visit: Yes Annotation/Comment:: Currently slightly subtherapeutic. Continue to manage per pharmacy. (6) Elevated LFTs SNOMED Code(s): 229407031 Code(s): R79.89 - OTHER SPECIFIED ABNORMAL FINDINGS OF BLOOD CHEMISTRY Status: Acute Current Visit: Yes Annotation/Comment:: Liver enzymes still elevated but stable. Continue to monitor. (7) Afib, Atrial fibrillation SNOMED Code(s): 22359402 Code(s): I48.91 - UNSPECIFIED ATRIAL FIBRILLATION Status: Acute Current Visit: No Annotation/Comment:: Currently rate controlled. Recheck digoxin level in am as this may be contributing to patient's lethargy. Last echo showed left ventricular ejection fraction 45-50% with concentric hypertrophy. Has known diastolic dysfunction. (8) Diabetes mellitus type 2 SNOMED Code(s): 09149891 Code(s): E11.9 - TYPE 2 DIABETES MELLITUS WITHOUT COMPLICATIONS Status: Acute Current Visit: No Annotation/Comment:: 2 doses of insulin were held yesterday due to blood sugars in the 90s at the time of eating. She had a blood sugar this morning in the 50s. Because of her decreased renal function, I suspect she is stacking insulin. Reduced dosage by 10 units morning and night on her Lantus and 15 units at meals. This will likely need to be increased prior to discharge once renal function has normalized. 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 Last echo 01/22/17 showed left ventricular ejection fraction 45-50% with concentric hypertrophy. Has known diastolic dysfunction. - Problem List Review Problem List Initiated/Reviewed/Updated: Yes - My Orders Last 24 Hours: My Active Orders 08/05/17 13:30 Sodium Chloride 0.9% [Normal Saline] 1,000 ml IV ASDIRECTED Torsemide [Demadex] 20 mg PO BIDDIURETIC 08/05/17 16:00 Warfarin [Coumadin] 2.5 mg PO 1600 08/06/17 07:47 Insulin Detemir [Levemir] 25 unit SUBCUT DAILY 08/06/17 07:48 Insulin Aspart [NovoLOG] 15 unit SUBCUT TIDMEALS Insulin Detemir [Levemir] 20 unit SUBCUT BEDTIME 08/06/17 08:10 predniSONE 20 mg PO WITHBREAKFAST 08/07/17 05:00 COMPREHENSIVE METABOLIC PN,CMP [CHEM] DAILY 08/07/17 05:11 CBC WITH AUTO DIFF [HEME] AM DIGOXIN [CHEM] AM 08/08/17 05:00 COMPREHENSIVE METABOLIC PN,CMP [CHEM] DAILY 08/09/17 05:00 COMPREHENSIVE METABOLIC PN,CMP [CHEM] DAILY 08/10/17 05:00 COMPREHENSIVE METABOLIC PN,CMP [CHEM] DAILY 08/11/17 05:00 COMPREHENSIVE METABOLIC PN,CMP [CHEM] DAILY 08/12/17 05:00 COMPREHENSIVE METABOLIC PN,CMP [CHEM] DAILY
[2017-08-06] MEDS: Albuterol/Ipratropium 3.0-0.5 MG/3 ML Neb Soln NEB PRN (08:55)
[2017-08-06] MEDS: Torsemide 20 MG Tab PO SCH ×2 (09:09→13:15)
[2017-08-06] MEDS: glipiZIDE 5 MG Tab PO SCH ×2 (09:09→17:27)
[2017-08-06] MEDS: Insulin Aspart 100 Units/ML 3 ML Pen SUBCUT SCH ×6 (09:10→17:31)
[2017-08-06] MEDS: predniSONE 20 MG Tab PO SCH (09:13)
[2017-08-06] MEDS: Carvedilol 25 MG Tab PO SCH ×2 (09:13→20:50)
[2017-08-06] MEDS: Aspirin 81 MG Tab.EC PO SCH (09:14)
[2017-08-06] MEDS: Isosorbide Mononitrate 30 MG Tab.ER PO SCH (09:16)
[2017-08-06] MEDS: Allopurinol 100 MG Tab PO SCH (09:17)
[2017-08-06] MEDS: Insulin Detemir 100 Units/ML 3 ML Pen SUBCUT SCH ×2 (09:22→21:01)
[2017-08-06] MEDS: Sodium Chloride 0.9% 1,000 ML IV SCH (13:48)
--- NOTE | 2017-08-06 15:25 | US ---
INDICATION: PICC line placement. ULTRASOUND GUIDANCE FOR VASCULAR ACCESS: Multiple ultrasonic images were obtained for guidance for PICC line placement. Access was apparently unable to be obtained. [facility]
[2017-08-06] MEDS ORDERED: Warfarin 5 MG Tab PO ONE (16:00)
[2017-08-06] MEDS: Docusate Sodium 100 MG Cap PO SCH (20:50)
[2017-08-06] MEDS: Bisacodyl 5 MG Tab PO SCH (20:56)
[2017-08-06] MEDS: Mirtazapine 15 MG Tab PO SCH (20:57)
[2017-08-06] MEDS: Ezetimibe 10 MG Tab PO SCH (20:58)
[2017-08-07] MEDS: Sodium Chloride 0.9% 1,000 ML IV SCH (04:07)
[2017-08-07] MEDS: Pantoprazole 40 MG Tab.CR PO SCH (06:08)
[2017-08-07] MEDS: Insulin Aspart 100 Units/ML 3 ML Pen SUBCUT SCH ×6 (08:00→17:46)
[2017-08-07] MEDS: glipiZIDE 5 MG Tab PO SCH ×2 (08:50→18:36)
[2017-08-07] MEDS: Carvedilol 25 MG Tab PO SCH ×2 (08:51→21:14)
[2017-08-07] MEDS: predniSONE 20 MG Tab PO SCH (08:51)
[2017-08-07] MEDS: Torsemide 20 MG Tab PO SCH (08:52)
[2017-08-07] MEDS: Aspirin 81 MG Tab.EC PO SCH (08:52)
[2017-08-07] MEDS: Isosorbide Mononitrate 30 MG Tab.ER PO SCH (08:53)
[2017-08-07] MEDS: Digoxin 125 MCG Tab PO SCH (08:54)
[2017-08-07] MEDS: Allopurinol 100 MG Tab PO SCH (08:58)
[2017-08-07] MEDS: Insulin Detemir 100 Units/ML 3 ML Pen SUBCUT SCH ×2 (09:20→21:15)
[2017-08-07] MEDS: Albuterol/Ipratropium 3.0-0.5 MG/3 ML Neb Soln NEB PRN (10:13)
--- NOTE | 2017-08-07 12:10 | PCM.PN ---
- General Info Date of Service: 08/07/17 Subjective Update: Patient is a 77-year-old female currently hospital day #10. She was initially admitted for pneumonia and completed her course of therapy for this. However she struggled with fluid balance. She has kidney issues and systolic and diastolic congestive heart failure and developed intravascular volume depletion with a very high BUNs and increased creatinine and gradually had increasing potassium as well. Had previously been on spironolactone and torsemide and these had been held and given 1 L fluid but this wasn't adequate to resuscitate her. She was given 2 more liters of IV fluids along with 20 mg torsemide by mouth twice a day and had a significant diuresis. Patient had another 2 L of fluid very slowly given and weight again is down another 10 pounds. She is doing very well this morning. Her head is quite clear. She is alert and oriented to person place day and month. She seems much more energetic today. She has no chest pain, no shortness of breath, no nausea, no vomiting, does have a little bit of loose stools but no increase in volume or frequency. Unfortunately the patient's small IV in her hand infiltrated and we were unable to get PICC placement yesterday due to 2 failed attempts. The patient is currently without IV access. Visited with patient's daughter and answered her questions. - Patient Data Vitals - Most Recent: Last Vital Signs Temp 36.9 C 08/07/17 08:00 Pulse 88 08/07/17 10:35 Resp 18 08/07/17 08:00 BP 152/106 H 08/07/17 08:53 Pulse Ox 93 L 08/07/17 10:35 Weight - Most Recent: 109.316 kg (down from 119.9 kg max. ) I&O - Last 24 Hours: Intake & Output 08/06/17 08/07/17 08/07/17 22:59 06:59 14:59 Intake Total 591 643 Balance 591 643 Lab Results Last 24 Hours: Laboratory Results - last 24 hr 08/06/17 08/06/17 08/07/17 Range/Units 17:23 20:46 06:08 WBC (4.5-12.0) X10-3/uL RBC (3.23-5.20) x10(6)uL Hgb (11.5-15.5) g/dL Hct (30.0-51.3) % MCV (80-96) fL MCH (27.7-33.6) pg MCHC (32.2-35.4) g/dL RDW (11.5-15.5) % Plt Count (125-369) X10(3)uL MPV (7.4-10.4) fL Neut % (Auto) (46-82) % Lymph % (Auto) (13-37) % Dale % (Auto) (4-12) % Eos % (Auto) (1.0-5.0) % Baso % (Auto) (0-2) % Neut # (Auto) (1.6-8.3) # Lymph # (Auto) (0.6-5.0) # Dale # (Auto) (0.0-1.3) # Eos # (Auto) (0.0-0.8) # Baso # (Auto) (0.0-0.2) # PT (8.7-11.1) INR (0.89-1.13) Sodium (135-145) mmol/L Potassium (3.5-5.3) mmol/L Chloride (100-110) mmol/L Carbon Dioxide (23-29) mmol/L BUN (8-23) mg/dL Creatinine (0.6-1.3) mg/dL Est Cr Clr Drug Dosing mL/min Estimated GFR (MDRD) (>60) BUN/Creatinine Ratio (9-20) Glucose (80-116) mg/dL POC Glucose 180 H 266 H D 106 D (80-116) mg/dL Calcium (8.6-10.2) mg/dL Total Bilirubin (0.1-1.3) mg/dL AST (5-27) IU/L ALT (14-26) IU/L Alkaline Phosphatase (56-112) IU/L Total Protein (6.0-8.0) g/dL Albumin (3.2-4.6) g/dL Globulin g/dL Albumin/Globulin Ratio Digoxin (0.8-2.0) ng/mL 08/07/17 08/07/17 08/07/17 Range/Units 06:25 06:25 06:25 WBC 12.8 H (4.5-12.0) X10-3/uL RBC 4.67 (3.23-5.20) x10(6)uL Hgb 12.9 (11.5-15.5) g/dL Hct 41.0 (30.0-51.3) % MCV 87.8 (80-96) fL MCH 27.7 (27.7-33.6) pg MCHC 31.6 L (32.2-35.4) g/dL RDW 15.7 H (11.5-15.5) % Plt Count 216 (125-369) X10(3)uL MPV 7.9 (7.4-10.4) fL Neut % (Auto) 75.7 (46-82) % Lymph % (Auto) 10.8 L (13-37) % Dale % (Auto) 8.4 (4-12) % Eos % (Auto) 0 L (1.0-5.0) % Baso % (Auto) 5 H (0-2) % Neut # (Auto) 9.6 H (1.6-8.3) # Lymph # (Auto) 1.4 (0.6-5.0) # Dale # (Auto) 1.1 (0.0-1.3) # Eos # (Auto) 0.1 (0.0-0.8) # Baso # (Auto) 0.6 H (0.0-0.2) # PT 20.8 H (8.7-11.1) INR 2.03 H (0.89-1.13) Sodium 147 H (135-145) mmol/L Potassium 4.5 (3.5-5.3) mmol/L Chloride 105 (100-110) mmol/L Carbon Dioxide 34 H (23-29) mmol/L BUN 75 H D (8-23) mg/dL Creatinine 1.4 H (0.6-1.3) mg/dL Est Cr Clr Drug Dosing 24.94 mL/min Estimated GFR (MDRD) 37 L (>60) BUN/Creatinine Ratio 53.6 H (9-20) Glucose 120 H (80-116) mg/dL POC Glucose (80-116) mg/dL Calcium 9.7 (8.6-10.2) mg/dL Total Bilirubin 0.9 (0.1-1.3) mg/dL AST 48 H (5-27) IU/L ALT 96 H D (14-26) IU/L Alkaline Phosphatase 85 (56-112) IU/L Total Protein 6.3 (6.0-8.0) g/dL Albumin 3.4 (3.2-4.6) g/dL Globulin 2.9 g/dL Albumin/Globulin Ratio 1.2 Digoxin (0.8-2.0) ng/mL 08/07/17 08/07/17 Range/Units 06:25 11:18 WBC (4.5-12.0) X10-3/uL RBC (3.23-5.20) x10(6)uL Hgb (11.5-15.5) g/dL Hct (30.0-51.3) % MCV (80-96) fL MCH (27.7-33.6) pg MCHC (32.2-35.4) g/dL RDW (11.5-15.5) % Plt Count (125-369) X10(3)uL MPV (7.4-10.4) fL Neut % (Auto) (46-82) % Lymph % (Auto) (13-37) % Dale % (Auto) (4-12) % Eos % (Auto) (1.0-5.0) % Baso % (Auto) (0-2) % Neut # (Auto) (1.6-8.3) # Lymph # (Auto) (0.6-5.0) # Dale # (Auto) (0.0-1.3) # Eos # (Auto) (0.0-0.8) # Baso # (Auto) (0.0-0.2) # PT (8.7-11.1) INR (0.89-1.13) Sodium (135-145) mmol/L Potassium (3.5-5.3) mmol/L Chloride (100-110) mmol/L Carbon Dioxide (23-29) mmol/L BUN (8-23) mg/dL Creatinine (0.6-1.3) mg/dL Est Cr Clr Drug Dosing mL/min Estimated GFR (MDRD) (>60) BUN/Creatinine Ratio (9-20) Glucose (80-116) mg/dL POC Glucose 202 H D (80-116) mg/dL Calcium (8.6-10.2) mg/dL Total Bilirubin (0.1-1.3) mg/dL AST (5-27) IU/L ALT (14-26) IU/L Alkaline Phosphatase (56-112) IU/L Total Protein (6.0-8.0) g/dL Albumin (3.2-4.6) g/dL Globulin g/dL Albumin/Globulin Ratio Digoxin 0.5 L (0.8-2.0) ng/mL Med Orders - Current: Current Medications Acetaminophen (Tylenol Extra Strength) 1,000 mg PO Q6H PRN PRN Reason: Pain Last Admin: 08/04/17 22:14 Dose: 1,000 mg Albuterol/Ipratropium (Duoneb 3.0-0.5 Mg/3 Ml) 3 ml NEB Q4H PRN PRN Reason: Shortness of Breath Last Admin: 08/07/17 10:13 Dose: 3 ml Allopurinol (Zyloprim) 100 mg PO DAILY [facility] Last Admin: 08/07/17 08:58 Dose: 100 mg Aspirin (Halfprin) 81 mg PO DAILY [facility] Last Admin: 08/07/17 08:52 Dose: 81 mg Bisacodyl (Dulcolax) 15 mg PO BEDTIME [facility] Last Admin: 08/06/17 20:56 Dose: 15 mg Carvedilol (Coreg) 25 mg PO BID [facility] Last Admin: 08/07/17 08:51 Dose: 25 mg Digoxin (Lanoxin) 125 mcg PO Q48H [facility] Last Admin: 08/07/17 08:54 Dose: 125 mcg Docusate Sodium (Colace) 100 mg PO BEDTIME [facility] Last Admin: 08/06/17 20:50 Dose: 100 mg Ezetimibe (Zetia) 10 mg PO BEDTIME [facility] Last Admin: 08/06/17 20:58 Dose: 10 mg Glipizide (Glucotrol) 5 mg PO BIDMEALS [facility] Last Admin: 08/07/17 08:50 Dose: 5 mg Sodium Chloride (Normal Saline) 250 mls @ 100 mls/hr IV ASDIRECTED [facility] Last Admin: 08/03/17 05:21 Dose: 100 mls/hr Sodium Chloride (Normal Saline) 1,000 mls @ 125 mls/hr IV ASDIRECTED [facility] Last Admin: 08/07/17 04:07 Dose: 125 mls/hr Insulin Aspart (Novolog) 0 unit SUBCUT TIDMEALS [facility] PRN Reason: Protocol Last Admin: 08/07/17 11:55 Dose: 2 units Insulin Aspart (Novolog) 15 unit SUBCUT TIDMEALS [facility] Last Admin: 08/07/17 11:52 Dose: 15 units Insulin Detemir (Levemir) 25 unit SUBCUT DAILY [facility] Last Admin: 08/07/17 09:20 Dose: 25 units Insulin Detemir (Levemir) 20 unit SUBCUT BEDTIME [facility] Last Admin: 08/06/17 21:01 Dose: 20 units Isosorbide Mononitrate (Imdur) 30 mg PO DAILY [facility] Last Admin: 08/07/17 08:53 Dose: 30 mg Magnesium Hydroxide (Milk Of Magnesia) 30 ml PO DAILY PRN PRN Reason: Constipation Last Admin: 08/01/17 16:56 Dose: 30 ml Milnacipran HCl (Savella) 50 mg PO BID [facility] Last Admin: 08/07/17 08:57 Dose: 50 mg Mirtazapine (Remeron) 15 mg PO BEDTIME [facility] Last Admin: 08/06/17 20:57 Dose: 15 mg Pantoprazole Sodium (Protonix) 40 mg PO Q48H [facility] Last Admin: 08/07/17 06:08 Dose: 40 mg Simvastatin (Zocor) 80 mg PO BEDTIME [facility] Last Admin: 08/06/17 20:59 Dose: 80 mg Sitagliptin Phosphate (Januvia) 50 mg PO DAILY [facility] Last Admin: 08/07/17 08:53 Dose: 50 mg Sodium Chloride (Saline Flush) 10 ml FLUSH ASDIRECTED PRN PRN Reason: Keep Vein Open Last Admin: 08/03/17 06:01 Dose: 10 ml Torsemide (Demadex) 20 mg PO DAILY [facility] Last Admin: 08/07/17 08:52 Dose: 20 mg Warfarin Sodium (Coumadin Sliding Scale) 0 each PO DAILY [facility] Warfarin Sodium (Coumadin) 2.5 mg PO 1600 [facility] Stop: 08/07/17 16:01 Discontinued Medications Albuterol/Ipratropium (Duoneb 3.0-0.5 Mg/3 Ml) 3 ml NEB ONETIME ONE Stop: 07/28/17 22:53 Albuterol/Ipratropium (Duoneb 3.0-0.5 Mg/3 Ml) Confirm Administered Dose 3 ml .ROUTE .STK-MED ONE Stop: 07/29/17 01:17 Last Admin: 07/29/17 11:40 Dose: Not Given Azithromycin (Zithromax) Confirm Administered Dose 500 mg .ROUTE .STK-MED ONE Stop: 07/29/17 04:57 Last Admin: 07/29/17 05:07 Dose: Not Given Escitalopram Oxalate (Lexapro) 5 mg PO DAILY [facility] Last Admin: 08/03/17 08:25 Dose: Not Given Gabapentin (Neurontin) 900 mg PO BID [facility] Last Admin: 08/03/17 20:48 Dose: 900 mg Gabapentin (Neurontin) 300 mg PO BID [facility] Last Admin: 08/05/17 21:37 Dose: 300 mg Sodium Chloride (Normal Saline) 1,000 mls @ 100 mls/hr IV ASDIRECTED [facility] Last Admin: 07/29/17 21:39 Dose: 100 mls/hr Azithromycin 500 mg/ Sodium (Chloride) 250 mls @ 250 mls/hr IV Q24H [facility] Last Admin: 08/04/17 05:27 Dose: 250 mls/hr Sodium Chloride (Normal Saline) 1,000 mls @ as directed IV .STK-MED ONE Stop: 07/28/17 23:46 Sodium Chloride (Normal Saline) 1,000 mls @ 75 mls/hr IV ASDIRECTED [facility] Stop: 08/07/17 02:49 Last Admin: 08/06/17 13:48 Dose: 75 mls/hr Influenza Virus Vaccine (Fluzone Quad 2094-1652) 60 mcg IM .ONCE ONE Stop: 07/29/17 08:16 Insulin Aspart (Novolog) 10 unit SUBCUT ONETIME ONE Stop: 07/29/17 13:38 Last Admin: 07/29/17 13:56 Dose: 10 units Insulin Aspart (Novolog) 10 unit SUBCUT ONETIME ONE Stop: 07/29/17 17:48 Last Admin: 07/29/17 18:00 Dose: 10 units Insulin Aspart (Novolog) 30 unit SUBCUT TIDMEALS [facility] Last Admin: 08/05/17 18:19 Dose: 30 units Insulin Aspart (Novolog) 18 unit SUBCUT ONETIME ONE Stop: 07/30/17 00:31 Last Admin: 07/30/17 00:46 Dose: 18 units Insulin Aspart (Novolog) 20 unit SUBCUT ONETIME ONE Stop: 07/30/17 02:46 Last Admin: 07/30/17 02:49 Dose: 20 units Insulin Aspart (Novolog) 15 unit SUBCUT ONETIME ONE Stop: 07/30/17 04:46 Last Admin: 07/30/17 04:55 Dose: 15 units Insulin Detemir (Levemir) 35 unit SUBCUT DAILY [facility] Last Admin: 07/29/17 11:37 Dose: 35 units Insulin Detemir (Levemir) 30 unit SUBCUT BEDTIME [facility] Last Admin: 08/05/17 21:36 Dose: 30 units Insulin Detemir (Levemir) 35 unit SUBCUT DAILY [facility] Last Admin: 08/05/17 08:28 Dose: 35 units Iopamidol (Isovue-370 (76%)) 100 ml IV . DIRECTED ONE Stop: 07/29/17 08:56 Last Admin: 07/29/17 02:00 Dose: 79 ml Methylprednisolone Sodium Succinate (Solu-Medrol) Confirm Administered Dose 125 mg .ROUTE .STK-MED ONE Stop: 07/28/17 23:46 Last Admin: 07/29/17 11:28 Dose: Not Given Methylprednisolone Sodium Succinate (Solu-Medrol) 40 mg IVPUSH Q8H [facility] Last Admin: 08/04/17 03:11 Dose: 40 mg No Warfarin Dose (Today (08/04/17)) 0 each PO ONETIME ONE Stop: 08/04/17 16:01 Last Admin: 08/04/17 17:08 Dose: Not Given Potassium Chloride (Klor-Con M20) 20 meq PO ONETIME ONE Stop: 07/30/17 00:28 Last Admin: 07/30/17 00:46 Dose: 20 meq Prednisone (Prednisone) 20 mg PO WITHBREAKFAST [facility] Last Admin: 07/29/17 09:21 Dose: 20 mg Prednisone (Prednisone) 40 mg PO WITHBREAKFAST [facility] Last Admin: 08/05/17 09:10 Dose: 40 mg Prednisone (Prednisone) 20 mg PO WITHBREAKFAST [facility] Stop: 08/07/17 12:00 Last Admin: 08/07/17 08:51 Dose: 20 mg Spironolactone (Aldactone) 25 mg PO DAILY [facility] Last Admin: 08/03/17 08:30 Dose: 25 mg Terbutaline Sulfate (Brethine) 0.25 mg SUBCUT Q4H [facility] Last Admin: 07/29/17 08:33 Dose: 0.25 mg Torsemide (Demadex) 30 mg PO DAILY [facility] Last Admin: 08/03/17 08:30 Dose: 30 mg Torsemide (Demadex) 30 mg PO ASDIRECTED PRN PRN Reason: WEIGHT GAIN MORE THAN 3 LBS Torsemide (Demadex) 20 mg PO BIDDIURETIC [facility] Last Admin: 08/06/17 13:15 Dose: 20 mg Valsartan (Diovan) 20 mg PO DAILY [facility] Last Admin: 08/03/17 08:30 Dose: 20 mg Warfarin Sodium (Coumadin) 2.5 mg PO SuMoWeThSa@1600 [facility] Last Admin: 08/01/17 16:20 Dose: 2.5 mg Warfarin Sodium (Coumadin) 5 mg PO TuFr@1600 [facility] Last Admin: 08/02/17 16:10 Dose: 5 mg Warfarin Sodium (Coumadin) 2.5 mg PO 1600 [facility] Last Admin: 08/05/17 17:00 Dose: 2.5 mg Warfarin Sodium (Coumadin) 5 mg PO ONETIME ONE Stop: 08/06/17 16:01 Last Admin: 08/06/17 17:26 Dose: 5 mg - Exam Quality Assessment: Supplemental Oxygen, Skin Breakdown (No breakdown but right hand is quite edematous from infiltration and she is bruised from shoulder to fingertips on the arms bilaterally intermittently.) General: Alert, Oriented, Cooperative, No Acute Distress HEENT: Pupils Equal, Pupils Reactive Neck: Supple Lungs: Clear to Auscultation, Normal Respiratory Effort Cardiovascular: Regular Rate, Regular Rhythm, No Murmurs GI/Abdominal Exam: Normal Bowel Sounds, Soft, Non-Tender, No Distention Back Exam: Normal Inspection Extremities: No Pedal Edema, Other (Skin bruised throughout the upper extremities as noted above) - Problem List & Annotations (1) Pneumonia SNOMED Code(s): 544399990 Code(s): J18.9 - PNEUMONIA, UNSPECIFIED ORGANISM Status: Acute Current Visit: Yes Annotation/Comment:: We'll discontinue prednisone after today's dose. Patient completed full course of antibiotic therapy. Clinically appears recovered although still requiring supplemental oxygen. (2) Lethargy SNOMED Code(s): 836278964 Code(s): R53.83 - OTHER FATIGUE Status: Acute Current Visit: Yes Annotation/Comment:: Significantly improved today. Blood urea now under 100. Gabapentin stopped. (3) MAYA (acute kidney injury) SNOMED Code(s): 08316048 Code(s): N17.9 - ACUTE KIDNEY FAILURE, UNSPECIFIED Status: Acute Current Visit: Yes Annotation/Comment:: Creatinine back to baseline. BUN still elevated. Reduce torsemide to 20 mg po daily due to no IVF. (4) Hyperkalemia SNOMED Code(s): 57698356 Code(s): E87.5 - HYPERKALEMIA Status: Acute Current Visit: Yes Annotation/Comment:: Normalized. (5) Anticoagulant long-term use SNOMED Code(s): 958722150 Code(s): Z79.01 - [facility] (CURRENT) USE OF ANTICOAGULANTS Status: Acute Current Visit: Yes Annotation/Comment:: Therapeutic. Continue to manage per pharmacy. (6) Elevated LFTs SNOMED Code(s): 748636166 Code(s): R79.89 - OTHER SPECIFIED ABNORMAL FINDINGS OF BLOOD CHEMISTRY Status: Acute Current Visit: Yes Annotation/Comment:: Liver enzymes still elevated but stable. Continue to monitor. (7) Afib, Atrial fibrillation SNOMED Code(s): 58806804 Code(s): I48.91 - UNSPECIFIED ATRIAL FIBRILLATION Status: Acute Current Visit: No Annotation/Comment:: Currently rate controlled. Last echo 01/22/17 showed left ventricular ejection fraction 45-50% with concentric hypertrophy. Also has diastolic dysfunction. (8) Diabetes mellitus type 2 SNOMED Code(s): 96765618 Code(s): E11.9 - TYPE 2 DIABETES MELLITUS WITHOUT COMPLICATIONS Status: Acute Current Visit: No Annotation/Comment:: slight permissive hyperglycemia due to no IV access. Hold insulin with meals if BG < 120. 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 Last echo 01/22/17 showed left ventricular ejection fraction 45-50% with concentric hypertrophy. Has known diastolic dysfunction. - Problem List Review Problem List Initiated/Reviewed/Updated: Yes - My Orders Last 24 Hours: My Active Orders 08/07/17 09:00 Torsemide [Demadex] 20 mg PO DAILY 08/07/17 12:05 OT Evaluation and Treatment [CONS] Routine PT Evaluation and Treatment [CONS] Routine 08/07/17 16:00 Warfarin [Coumadin] 2.5 mg PO 1600 08/08/17 05:00 COMPREHENSIVE METABOLIC PN,CMP [CHEM] DAILY 08/09/17 05:00 COMPREHENSIVE METABOLIC PN,CMP [CHEM] DAILY 08/10/17 05:00 COMPREHENSIVE METABOLIC PN,CMP [CHEM] DAILY 08/11/17 05:00 COMPREHENSIVE METABOLIC PN,CMP [CHEM] DAILY 08/12/17 05:00 COMPREHENSIVE METABOLIC PN,CMP [CHEM] DAILY
[2017-08-07] MEDS ORDERED: Warfarin 2.5 MG Tab PO SCH (16:00)
[2017-08-07] MEDS: Docusate Sodium 100 MG Cap PO SCH (21:14)
[2017-08-07] MEDS: Bisacodyl 5 MG Tab PO SCH (21:15)
[2017-08-07] MEDS: Mirtazapine 15 MG Tab PO SCH (21:17)
[2017-08-07] MEDS: Ezetimibe 10 MG Tab PO SCH (21:18)
[2017-08-08] MEDS: Insulin Aspart 100 Units/ML 3 ML Pen SUBCUT SCH ×6 (08:20→17:18)
[2017-08-08] MEDS: Carvedilol 25 MG Tab PO SCH ×2 (08:20→20:47)
[2017-08-08] MEDS: Aspirin 81 MG Tab.EC PO SCH (08:21)
[2017-08-08] MEDS: Isosorbide Mononitrate 30 MG Tab.ER PO SCH (08:21)
[2017-08-08] MEDS: Torsemide 20 MG Tab PO SCH (08:21)
[2017-08-08] MEDS: Allopurinol 100 MG Tab PO SCH (08:22)
[2017-08-08] MEDS: Insulin Detemir 100 Units/ML 3 ML Pen SUBCUT SCH ×2 (08:39→20:50)
[2017-08-08] MEDS: Albuterol/Ipratropium 3.0-0.5 MG/3 ML Neb Soln NEB PRN (08:46)
[2017-08-08] MEDS: glipiZIDE 5 MG Tab PO SCH ×2 (08:56→17:19)
--- NOTE | 2017-08-08 09:58 | PCM.PN ---
- General Info Date of Service: 08/08/17 Admission Dx/Problem (Free Text): Patient states she feels a little confused. That's improved. She denies chest pain, shortness of breath. Has a little leg swelling. - Patient Data Vitals - Most Recent: Last Vital Signs Temp 98.2 F 08/08/17 00:30 Pulse 92 08/08/17 08:49 Resp 20 08/08/17 00:30 BP 138/69 08/08/17 08:21 Pulse Ox 93 L 08/08/17 08:47 Weight - Most Recent: 238 lb 11.2 oz Lab Results Last 24 Hours: Laboratory Results - last 24 hr 08/07/17 08/07/17 08/07/17 Range/Units 11:18 17: 21:22 PT (8.7-11.1) INR (0.89-1.13) Sodium (135-145) mmol/L Potassium (3.5-5.3) mmol/L Chloride (100-110) mmol/L Carbon Dioxide (23-29) mmol/L BUN (8-23) mg/dL Creatinine (0.6-1.3) mg/dL Est Cr Clr Drug Dosing mL/min Estimated GFR (MDRD) (>60) BUN/Creatinine Ratio (9-20) Glucose (80-116) mg/dL POC Glucose 202 H D 91 D 252 H D (80-116) mg/dL Calcium (8.6-10.2) mg/dL Total Bilirubin (0.1-1.3) mg/dL AST (5-27) IU/L ALT (14-26) IU/L Alkaline Phosphatase (56-112) IU/L Total Protein (6.0-8.0) g/dL Albumin (3.2-4.6) g/dL Globulin g/dL Albumin/Globulin Ratio 08/08/17 08/08/17 08/08/17 Range/Units 06:50 06:50 06:50 PT 22.2 H (8.7-11.1) INR 2.17 H (0.89-1.13) Sodium 146 H (135-145) mmol/L Potassium 4.4 (3.5-5.3) mmol/L Chloride 105 (100-110) mmol/L Carbon Dioxide 31 H (23-29) mmol/L BUN 48 H D (8-23) mg/dL Creatinine 1.3 (0.6-1.3) mg/dL Est Cr Clr Drug Dosing 26.86 mL/min Estimated GFR (MDRD) 40 L (>60) BUN/Creatinine Ratio 36.9 H (9-20) Glucose 99 (80-116) mg/dL POC Glucose 92 D (80-116) mg/dL Calcium 9.7 (8.6-10.2) mg/dL Total Bilirubin 1.4 H (0.1-1.3) mg/dL AST 54 H D (5-27) IU/L ALT 100 H (14-26) IU/L Alkaline Phosphatase 77 (56-112) IU/L Total Protein 5.7 L (6.0-8.0) g/dL Albumin 3.1 L (3.2-4.6) g/dL Globulin 2.6 g/dL Albumin/Globulin Ratio 1.2 Med Orders - Current: Current Medications Acetaminophen (Tylenol Extra Strength) 1,000 mg PO Q6H PRN PRN Reason: Pain Last Admin: 08/04/17 22:14 Dose: 1,000 mg Albuterol/Ipratropium (Duoneb 3.0-0.5 Mg/3 Ml) 3 ml NEB Q4H PRN PRN Reason: Shortness of Breath Last Admin: 08/08/17 08:46 Dose: 3 ml Allopurinol (Zyloprim) 100 mg PO DAILY [facility] Last Admin: 08/08/17 08:22 Dose: 100 mg Aspirin (Halfprin) 81 mg PO DAILY [facility] Last Admin: 08/08/17 08:21 Dose: 81 mg Bisacodyl (Dulcolax) 15 mg PO BEDTIME [facility] Last Admin: 08/07/17 21:15 Dose: 15 mg Carvedilol (Coreg) 25 mg PO BID [facility] Last Admin: 08/08/17 08:20 Dose: 25 mg Digoxin (Lanoxin) 125 mcg PO Q48H [facility] Last Admin: 08/07/17 08:54 Dose: 125 mcg Docusate Sodium (Colace) 100 mg PO BEDTIME [facility] Last Admin: 08/07/17 21:14 Dose: 100 mg Ezetimibe (Zetia) 10 mg PO BEDTIME [facility] Last Admin: 08/07/17 21:18 Dose: 10 mg Glipizide (Glucotrol) 5 mg PO BIDMEALS [facility] Last Admin: 08/08/17 08:56 Dose: 5 mg Sodium Chloride (Normal Saline) 250 mls @ 100 mls/hr IV ASDIRECTED [facility] Last Admin: 08/03/17 05:21 Dose: 100 mls/hr Insulin Aspart (Novolog) 0 unit SUBCUT TIDMEALS [facility] PRN Reason: Protocol Last Admin: 08/08/17 08:20 Dose: Not Given Insulin Aspart (Novolog) 15 unit SUBCUT TIDMEALS [facility] Last Admin: 08/08/17 08:42 Dose: Not Given Insulin Detemir (Levemir) 25 unit SUBCUT DAILY [facility] Last Admin: 08/08/17 08:39 Dose: 25 units Insulin Detemir (Levemir) 20 unit SUBCUT BEDTIME [facility] Last Admin: 08/07/17 21:15 Dose: 20 units Isosorbide Mononitrate (Imdur) 30 mg PO DAILY [facility] Last Admin: 08/08/17 08:21 Dose: 30 mg Magnesium Hydroxide (Milk Of Magnesia) 30 ml PO DAILY PRN PRN Reason: Constipation Last Admin: 08/01/17 16:56 Dose: 30 ml Milnacipran HCl (Savella) 50 mg PO BID [facility] Last Admin: 08/08/17 08:22 Dose: 50 mg Mirtazapine (Remeron) 15 mg PO BEDTIME [facility] Last Admin: 08/07/17 21:17 Dose: 15 mg Pantoprazole Sodium (Protonix) 40 mg PO Q48H [facility] Last Admin: 08/07/17 06:08 Dose: 40 mg Simvastatin (Zocor) 80 mg PO BEDTIME [facility] Last Admin: 08/07/17 21:18 Dose: 80 mg Sitagliptin Phosphate (Januvia) 50 mg PO DAILY [facility] Last Admin: 08/08/17 08:22 Dose: 50 mg Sodium Chloride (Saline Flush) 10 ml FLUSH ASDIRECTED PRN PRN Reason: Keep Vein Open Last Admin: 08/03/17 06:01 Dose: 10 ml Torsemide (Demadex) 20 mg PO DAILY [facility] Last Admin: 08/08/17 08:21 Dose: 20 mg Warfarin Sodium (Coumadin Sliding Scale) 0 each PO DAILY [facility] Warfarin Sodium (Coumadin) 2.5 mg PO ONETIME ONE Stop: 08/08/17 16:01 Discontinued Medications Albuterol/Ipratropium (Duoneb 3.0-0.5 Mg/3 Ml) 3 ml NEB ONETIME ONE Stop: 07/28/17 22:53 Albuterol/Ipratropium (Duoneb 3.0-0.5 Mg/3 Ml) Confirm Administered Dose 3 ml .ROUTE .STK-MED ONE Stop: 07/29/17 01:17 Last Admin: 07/29/17 11:40 Dose: Not Given Azithromycin (Zithromax) Confirm Administered Dose 500 mg .ROUTE .STK-MED ONE Stop: 07/29/17 04:57 Last Admin: 07/29/17 05:07 Dose: Not Given Escitalopram Oxalate (Lexapro) 5 mg PO DAILY [facility] Last Admin: 08/03/17 08:25 Dose: Not Given Gabapentin (Neurontin) 900 mg PO BID [facility] Last Admin: 08/03/17 20:48 Dose: 900 mg Gabapentin (Neurontin) 300 mg PO BID [facility] Last Admin: 08/05/17 21:37 Dose: 300 mg Sodium Chloride (Normal Saline) 1,000 mls @ 100 mls/hr IV ASDIRECTED [facility] Last Admin: 07/29/17 21:39 Dose: 100 mls/hr Azithromycin 500 mg/ Sodium (Chloride) 250 mls @ 250 mls/hr IV Q24H [facility] Last Admin: 08/04/17 05:27 Dose: 250 mls/hr Sodium Chloride (Normal Saline) 1,000 mls @ as directed IV .STK-MED ONE Stop: 07/28/17 23:46 Sodium Chloride (Normal Saline) 1,000 mls @ 125 mls/hr IV ASDIRECTED [facility] Last Admin: 08/07/17 04:07 Dose: 125 mls/hr Sodium Chloride (Normal Saline) 1,000 mls @ 75 mls/hr IV ASDIRECTED [facility] Stop: 08/07/17 02:49 Last Admin: 08/06/17 13:48 Dose: 75 mls/hr Influenza Virus Vaccine (Fluzone Quad 1802-5511) 60 mcg IM .ONCE ONE Stop: 07/29/17 08:16 Insulin Aspart (Novolog) 10 unit SUBCUT ONETIME ONE Stop: 07/29/17 13:38 Last Admin: 07/29/17 13:56 Dose: 10 units Insulin Aspart (Novolog) 10 unit SUBCUT ONETIME ONE Stop: 07/29/17 17:48 Last Admin: 07/29/17 18:00 Dose: 10 units Insulin Aspart (Novolog) 30 unit SUBCUT TIDMEALS [facility] Last Admin: 08/05/17 18:19 Dose: 30 units Insulin Aspart (Novolog) 18 unit SUBCUT ONETIME ONE Stop: 07/30/17 00:31 Last Admin: 07/30/17 00:46 Dose: 18 units Insulin Aspart (Novolog) 20 unit SUBCUT ONETIME ONE Stop: 07/30/17 02:46 Last Admin: 07/30/17 02:49 Dose: 20 units Insulin Aspart (Novolog) 15 unit SUBCUT ONETIME ONE Stop: 07/30/17 04:46 Last Admin: 07/30/17 04:55 Dose: 15 units Insulin Detemir (Levemir) 35 unit SUBCUT DAILY [facility] Last Admin: 07/29/17 11:37 Dose: 35 units Insulin Detemir (Levemir) 30 unit SUBCUT BEDTIME [facility] Last Admin: 08/05/17 21:36 Dose: 30 units Insulin Detemir (Levemir) 35 unit SUBCUT DAILY [facility] Last Admin: 08/05/17 08:28 Dose: 35 units Iopamidol (Isovue-370 (76%)) 100 ml IV . DIRECTED ONE Stop: 07/29/17 08:56 Last Admin: 07/29/17 02:00 Dose: 79 ml Methylprednisolone Sodium Succinate (Solu-Medrol) Confirm Administered Dose 125 mg .ROUTE .STK-MED ONE Stop: 07/28/17 23:46 Last Admin: 07/29/17 11:28 Dose: Not Given Methylprednisolone Sodium Succinate (Solu-Medrol) 40 mg IVPUSH Q8H [facility] Last Admin: 08/04/17 03:11 Dose: 40 mg No Warfarin Dose (Today (08/04/17)) 0 each PO ONETIME ONE Stop: 08/04/17 16:01 Last Admin: 08/04/17 17:08 Dose: Not Given Potassium Chloride (Klor-Con M20) 20 meq PO ONETIME ONE Stop: 07/30/17 00:28 Last Admin: 07/30/17 00:46 Dose: 20 meq Prednisone (Prednisone) 20 mg PO WITHBREAKFAST [facility] Last Admin: 07/29/17 09:21 Dose: 20 mg Prednisone (Prednisone) 40 mg PO WITHBREAKFAST [facility] Last Admin: 08/05/17 09:10 Dose: 40 mg Prednisone (Prednisone) 20 mg PO WITHBREAKFAST [facility] Stop: 08/07/17 12:00 Last Admin: 08/07/17 08:51 Dose: 20 mg Spironolactone (Aldactone) 25 mg PO DAILY [facility] Last Admin: 08/03/17 08:30 Dose: 25 mg Terbutaline Sulfate (Brethine) 0.25 mg SUBCUT Q4H [facility] Last Admin: 07/29/17 08:33 Dose: 0.25 mg Torsemide (Demadex) 30 mg PO DAILY [facility] Last Admin: 08/03/17 08:30 Dose: 30 mg Torsemide (Demadex) 30 mg PO ASDIRECTED PRN PRN Reason: WEIGHT GAIN MORE THAN 3 LBS Torsemide (Demadex) 20 mg PO BIDDIURETIC [facility] Last Admin: 08/06/17 13:15 Dose: 20 mg Valsartan (Diovan) 20 mg PO DAILY [facility] Last Admin: 08/03/17 08:30 Dose: 20 mg Warfarin Sodium (Coumadin) 2.5 mg PO SuMoWeThSa@1600 [facility] Last Admin: 08/01/17 16:20 Dose: 2.5 mg Warfarin Sodium (Coumadin) 5 mg PO TuFr@1600 [facility] Last Admin: 08/02/17 16:10 Dose: 5 mg Warfarin Sodium (Coumadin) 2.5 mg PO 1600 [facility] Last Admin: 08/05/17 17:00 Dose: 2.5 mg Warfarin Sodium (Coumadin) 5 mg PO ONETIME ONE Stop: 08/06/17 16:01 Last Admin: 08/06/17 17:26 Dose: 5 mg Warfarin Sodium (Coumadin) 2.5 mg PO 1600 [facility] Stop: 08/07/17 16:01 Last Admin: 08/07/17 16:58 Dose: 2.5 mg - Exam General: Alert, Cooperative Lungs: Clear to Auscultation, Normal Respiratory Effort Cardiovascular: Regular Rate, Regular Rhythm, No Murmurs Extremities: No Pedal Edema - Problem List & Annotations (1) Palliative care status SNOMED Code(s): 637139239 Code(s): Z51.5 - ENCOUNTER FOR PALLIATIVE CARE Status: Acute Current Visit: Yes (2) MAYA (acute kidney injury) SNOMED Code(s): 63627317 Code(s): N17.9 - ACUTE KIDNEY FAILURE, UNSPECIFIED Status: Acute Current Visit: Yes Annotation/Comment:: Creatinine back to baseline. BUN still elevated. Reduce torsemide to 20 mg po daily due to no IVF. (3) Anticoagulant long-term use SNOMED Code(s): 570252578 Code(s): Z79.01 - RETIREMENT (CURRENT) USE OF ANTICOAGULANTS Status: Acute Current Visit: Yes Annotation/Comment:: Therapeutic. Continue to manage per pharmacy. (4) Elevated LFTs SNOMED Code(s): 363668290 Code(s): R79.89 - OTHER SPECIFIED ABNORMAL FINDINGS OF BLOOD CHEMISTRY Status: Acute Current Visit: Yes Annotation/Comment:: Liver enzymes still elevated but stable. Continue to monitor. (5) Hyperkalemia SNOMED Code(s): 17277060 Code(s): E87.5 - HYPERKALEMIA Status: Acute Current Visit: Yes Annotation/Comment:: Normalized. (6) Pneumonia SNOMED Code(s): 596900517 Code(s): J18.9 - PNEUMONIA, UNSPECIFIED ORGANISM Status: Acute Current Visit: Yes Annotation/Comment:: We'll discontinue prednisone after today's dose. Patient completed full course of antibiotic therapy. Clinically appears recovered although still requiring supplemental oxygen. 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 Last echo 01/22/17 showed left ventricular ejection fraction 45-50% with concentric hypertrophy. Has known diastolic dysfunction. - Problem List Review Problem List Initiated/Reviewed/Updated: Yes - My Orders Last 24 Hours: My Active Orders 08/08/17 16:00 Warfarin [Coumadin] 2.5 mg PO ONETIME ONE - Plan Plan:: Continue current care. Start coordinating where this patient's going to go
[2017-08-08] MEDS ORDERED: Warfarin 2.5 MG Tab PO SCH (16:00)
[2017-08-08] MEDS: Docusate Sodium 100 MG Cap PO SCH (20:44)
[2017-08-08] MEDS: Mirtazapine 15 MG Tab PO SCH (20:44)
[2017-08-08] MEDS: Ezetimibe 10 MG Tab PO SCH (20:45)
[2017-08-08] MEDS: Bisacodyl 5 MG Tab PO SCH (20:45)
[2017-08-09] MEDS: Pantoprazole 40 MG Tab.CR PO SCH (07:44)
[2017-08-09] MEDS: Insulin Aspart 100 Units/ML 3 ML Pen SUBCUT SCH ×2 (08:05→08:15)
[2017-08-09] MEDS: Acetaminophen 500 MG Tab PO PRN (08:13)
[2017-08-09] MEDS: glipiZIDE 5 MG Tab PO SCH (08:17)
[2017-08-09] MEDS: Carvedilol 25 MG Tab PO SCH (08:17)
[2017-08-09] MEDS: Aspirin 81 MG Tab.EC PO SCH (08:18)
[2017-08-09] MEDS: Allopurinol 100 MG Tab PO SCH (08:18)
[2017-08-09] MEDS: Torsemide 20 MG Tab PO SCH (08:18)
[2017-08-09] MEDS: Isosorbide Mononitrate 30 MG Tab.ER PO SCH (08:18)
[2017-08-09] MEDS: Digoxin 125 MCG Tab PO SCH (08:18)
[2017-08-09 08:19] VITALS: BP 165/80
[2017-08-09] MEDS: Albuterol/Ipratropium 3.0-0.5 MG/3 ML Neb Soln NEB PRN (09:53)
--- NOTE | 2017-08-09 10:38 | PCM.PN ---
- General Info Date of Service: 08/09/17 Admission Dx/Problem (Free Text): Patient states she has no fevers, chills, shortness of breath. Thinking is becoming clearer. PTOT states that they don't think she has a skilled need. Patient does not walk well still has problems managing her medicines per she doesn't even know who gave her insulin for if she did it at home. She is requesting a assisted living. - Patient Data Vitals - Most Recent: Last Vital Signs Temp 98.3 F 08/09/17 08:00 Pulse 71 08/09/17 09:53 Resp 20 08/09/17 08:00 BP 165/80 H 08/09/17 08:18 Pulse Ox 91 L 08/09/17 09:53 Weight - Most Recent: 236 lb 11.2 oz Lab Results Last 24 Hours: Laboratory Results - last 24 hr 08/08/17 08/08/17 08/08/17 Range/Units 11:28 17:17 20:49 PT (8.7-11.1) INR (0.89-1.13) Sodium (135-145) mmol/L Potassium (3.5-5.3) mmol/L Chloride (100-110) mmol/L Carbon Dioxide (23-29) mmol/L BUN (8-23) mg/dL Creatinine (0.6-1.3) mg/dL Est Cr Clr Drug Dosing mL/min Estimated GFR (MDRD) (>60) BUN/Creatinine Ratio (9-20) Glucose (80-116) mg/dL POC Glucose 169 H 87 D 244 H D (80-116) mg/dL Calcium (8.6-10.2) mg/dL Total Bilirubin (0.1-1.3) mg/dL AST (5-27) IU/L ALT (14-26) IU/L Alkaline Phosphatase (56-112) IU/L Total Protein (6.0-8.0) g/dL Albumin (3.2-4.6) g/dL Globulin g/dL Albumin/Globulin Ratio 08/09/17 08/09/17 08/09/17 Range/Units 06:40 06:40 07:42 PT 21.2 H (8.7-11.1) INR 2.07 H (0.89-1.13) Sodium 143 (135-145) mmol/L Potassium 3.8 (3.5-5.3) mmol/L Chloride 101 (100-110) mmol/L Carbon Dioxide 34 H (23-29) mmol/L BUN 45 H (8-23) mg/dL Creatinine 1.4 H (0.6-1.3) mg/dL Est Cr Clr Drug Dosing 24.94 mL/min Estimated GFR (MDRD) 37 L (>60) BUN/Creatinine Ratio 32.1 H (9-20) Glucose 67 L (80-116) mg/dL POC Glucose 52 L D (80-116) mg/dL Calcium 9.5 (8.6-10.2) mg/dL Total Bilirubin 1.4 H (0.1-1.3) mg/dL AST 64 H D (5-27) IU/L ALT 118 H D (14-26) IU/L Alkaline Phosphatase 84 (56-112) IU/L Total Protein 5.9 L (6.0-8.0) g/dL Albumin 3.1 L (3.2-4.6) g/dL Globulin 2.8 g/dL Albumin/Globulin Ratio 1.1 Med Orders - Current: Current Medications Acetaminophen (Tylenol Extra Strength) 1,000 mg PO Q6H PRN PRN Reason: Pain Last Admin: 08/09/17 08:13 Dose: 1,000 mg Albuterol/Ipratropium (Duoneb 3.0-0.5 Mg/3 Ml) 3 ml NEB Q4H PRN PRN Reason: Shortness of Breath Last Admin: 08/09/17 09:53 Dose: 3 ml Allopurinol (Zyloprim) 100 mg PO DAILY [facility] Last Admin: 08/09/17 08:18 Dose: 100 mg Aspirin (Halfprin) 81 mg PO DAILY [facility] Last Admin: 08/09/17 08:18 Dose: 81 mg Bisacodyl (Dulcolax) 15 mg PO BEDTIME [facility] Last Admin: 08/08/17 20:45 Dose: 15 mg Carvedilol (Coreg) 25 mg PO BID [facility] Last Admin: 08/09/17 08:17 Dose: 25 mg Digoxin (Lanoxin) 125 mcg PO Q48H [facility] Last Admin: 08/09/17 08:18 Dose: 125 mcg Docusate Sodium (Colace) 100 mg PO BEDTIME [facility] Last Admin: 08/08/17 20:44 Dose: 100 mg Ezetimibe (Zetia) 10 mg PO BEDTIME [facility] Last Admin: 08/08/17 20:45 Dose: 10 mg Glipizide (Glucotrol) 5 mg PO BIDMEALS [facility] Last Admin: 08/09/17 08:17 Dose: 5 mg Sodium Chloride (Normal Saline) 250 mls @ 100 mls/hr IV ASDIRECTED [facility] Last Admin: 08/03/17 05:21 Dose: 100 mls/hr Insulin Aspart (Novolog) 0 unit SUBCUT TIDMEALS [facility] PRN Reason: Protocol Last Admin: 08/09/17 08:05 Dose: Not Given Insulin Aspart (Novolog) 15 unit SUBCUT TIDMEALS [facility] Last Admin: 08/09/17 08:15 Dose: Not Given Insulin Detemir (Levemir) 25 unit SUBCUT DAILY [facility] Last Admin: 08/08/17 08:39 Dose: 25 units Insulin Detemir (Levemir) 20 unit SUBCUT BEDTIME [facility] Last Admin: 08/08/17 20:50 Dose: 20 units Isosorbide Mononitrate (Imdur) 30 mg PO DAILY [facility] Last Admin: 08/09/17 08:18 Dose: 30 mg Magnesium Hydroxide (Milk Of Magnesia) 30 ml PO DAILY PRN PRN Reason: Constipation Last Admin: 08/01/17 16:56 Dose: 30 ml Milnacipran HCl (Savella) 50 mg PO BID [facility] Last Admin: 08/09/17 08:18 Dose: 50 mg Mirtazapine (Remeron) 15 mg PO BEDTIME [facility] Last Admin: 08/08/17 20:44 Dose: 15 mg Pantoprazole Sodium (Protonix) 40 mg PO Q48H [facility] Last Admin: 08/09/17 07:44 Dose: 40 mg Simvastatin (Zocor) 80 mg PO BEDTIME [facility] Last Admin: 08/08/17 20:44 Dose: 80 mg Sitagliptin Phosphate (Januvia) 50 mg PO DAILY [facility] Last Admin: 08/09/17 08:18 Dose: 50 mg Sodium Chloride (Saline Flush) 10 ml FLUSH ASDIRECTED PRN PRN Reason: Keep Vein Open Last Admin: 08/03/17 06:01 Dose: 10 ml Torsemide (Demadex) 20 mg PO DAILY [facility] Last Admin: 08/09/17 08:18 Dose: 20 mg Warfarin Sodium (Coumadin Sliding Scale) 0 each PO DAILY [facility] Warfarin Sodium (Coumadin) 5 mg PO TuFr@1600 [facility] Warfarin Sodium (Coumadin) 2.5 mg PO SuMoWeThSa@1600 [facility] Discontinued Medications Albuterol/Ipratropium (Duoneb 3.0-0.5 Mg/3 Ml) 3 ml NEB ONETIME ONE Stop: 07/28/17 22:53 Albuterol/Ipratropium (Duoneb 3.0-0.5 Mg/3 Ml) Confirm Administered Dose 3 ml .ROUTE .STK-MED ONE Stop: 07/29/17 01:17 Last Admin: 07/29/17 11:40 Dose: Not Given Azithromycin (Zithromax) Confirm Administered Dose 500 mg .ROUTE .STK-MED ONE Stop: 07/29/17 04:57 Last Admin: 07/29/17 05:07 Dose: Not Given Escitalopram Oxalate (Lexapro) 5 mg PO DAILY [facility] Last Admin: 08/03/17 08:25 Dose: Not Given Gabapentin (Neurontin) 900 mg PO BID [facility] Last Admin: 08/03/17 20:48 Dose: 900 mg Gabapentin (Neurontin) 300 mg PO BID [facility] Last Admin: 08/05/17 21:37 Dose: 300 mg Sodium Chloride (Normal Saline) 1,000 mls @ 100 mls/hr IV ASDIRECTED [facility] Last Admin: 07/29/17 21:39 Dose: 100 mls/hr Azithromycin 500 mg/ Sodium (Chloride) 250 mls @ 250 mls/hr IV Q24H [facility] Last Admin: 08/04/17 05:27 Dose: 250 mls/hr Sodium Chloride (Normal Saline) 1,000 mls @ as directed IV .STK-MED ONE Stop: 07/28/17 23:46 Sodium Chloride (Normal Saline) 1,000 mls @ 125 mls/hr IV ASDIRECTED [facility] Last Admin: 08/07/17 04:07 Dose: 125 mls/hr Sodium Chloride (Normal Saline) 1,000 mls @ 75 mls/hr IV ASDIRECTED [facility] Stop: 08/07/17 02:49 Last Admin: 08/06/17 13:48 Dose: 75 mls/hr Influenza Virus Vaccine (Fluzone Quad 7238-5502) 60 mcg IM .ONCE ONE Stop: 07/29/17 08:16 Insulin Aspart (Novolog) 10 unit SUBCUT ONETIME ONE Stop: 07/29/17 13:38 Last Admin: 07/29/17 13:56 Dose: 10 units Insulin Aspart (Novolog) 10 unit SUBCUT ONETIME ONE Stop: 07/29/17 17:48 Last Admin: 07/29/17 18:00 Dose: 10 units Insulin Aspart (Novolog) 30 unit SUBCUT TIDMEALS [facility] Last Admin: 08/05/17 18:19 Dose: 30 units Insulin Aspart (Novolog) 18 unit SUBCUT ONETIME ONE Stop: 07/30/17 00:31 Last Admin: 07/30/17 00:46 Dose: 18 units Insulin Aspart (Novolog) 20 unit SUBCUT ONETIME ONE Stop: 07/30/17 02:46 Last Admin: 07/30/17 02:49 Dose: 20 units Insulin Aspart (Novolog) 15 unit SUBCUT ONETIME ONE Stop: 07/30/17 04:46 Last Admin: 07/30/17 04:55 Dose: 15 units Insulin Detemir (Levemir) 35 unit SUBCUT DAILY [facility] Last Admin: 07/29/17 11:37 Dose: 35 units Insulin Detemir (Levemir) 30 unit SUBCUT BEDTIME [facility] Last Admin: 08/05/17 21:36 Dose: 30 units Insulin Detemir (Levemir) 35 unit SUBCUT DAILY [facility] Last Admin: 08/05/17 08:28 Dose: 35 units Iopamidol (Isovue-370 (76%)) 100 ml IV . DIRECTED ONE Stop: 07/29/17 08:56 Last Admin: 07/29/17 02:00 Dose: 79 ml Methylprednisolone Sodium Succinate (Solu-Medrol) Confirm Administered Dose 125 mg .ROUTE .STK-MED ONE Stop: 07/28/17 23:46 Last Admin: 07/29/17 11:28 Dose: Not Given Methylprednisolone Sodium Succinate (Solu-Medrol) 40 mg IVPUSH Q8H [facility] Last Admin: 08/04/17 03:11 Dose: 40 mg No Warfarin Dose (Today (08/04/17)) 0 each PO ONETIME ONE Stop: 08/04/17 16:01 Last Admin: 08/04/17 17:08 Dose: Not Given Potassium Chloride (Klor-Con M20) 20 meq PO ONETIME ONE Stop: 07/30/17 00:28 Last Admin: 07/30/17 00:46 Dose: 20 meq Prednisone (Prednisone) 20 mg PO WITHBREAKFAST [facility] Last Admin: 07/29/17 09:21 Dose: 20 mg Prednisone (Prednisone) 40 mg PO WITHBREAKFAST [facility] Last Admin: 08/05/17 09:10 Dose: 40 mg Prednisone (Prednisone) 20 mg PO WITHBREAKFAST JESUS Stop: 08/07/17 12:00 Last Admin: 08/07/17 08:51 Dose: 20 mg Spironolactone (Aldactone) 25 mg PO DAILY [facility] Last Admin: 08/03/17 08:30 Dose: 25 mg Terbutaline Sulfate (Brethine) 0.25 mg SUBCUT Q4H [facility] Last Admin: 07/29/17 08:33 Dose: 0.25 mg Torsemide (Demadex) 30 mg PO DAILY [facility] Last Admin: 08/03/17 08:30 Dose: 30 mg Torsemide (Demadex) 30 mg PO ASDIRECTED PRN PRN Reason: WEIGHT GAIN MORE THAN 3 LBS Torsemide (Demadex) 20 mg PO BIDDIURETIC [facility] Last Admin: 08/06/17 13:15 Dose: 20 mg Valsartan (Diovan) 20 mg PO DAILY [facility] Last Admin: 08/03/17 08:30 Dose: 20 mg Warfarin Sodium (Coumadin) 2.5 mg PO SuMoWeThSa@1600 [facility] Last Admin: 08/01/17 16:20 Dose: 2.5 mg Warfarin Sodium (Coumadin) 5 mg PO TuFr@1600 [facility] Last Admin: 08/02/17 16:10 Dose: 5 mg Warfarin Sodium (Coumadin) 2.5 mg PO 1600 [facility] Last Admin: 08/05/17 17:00 Dose: 2.5 mg Warfarin Sodium (Coumadin) 5 mg PO ONETIME ONE Stop: 08/06/17 16:01 Last Admin: 08/06/17 17:26 Dose: 5 mg Warfarin Sodium (Coumadin) 2.5 mg PO 1600 [facility] Stop: 08/07/17 16:01 Last Admin: 08/07/17 16:58 Dose: 2.5 mg Warfarin Sodium (Coumadin) 2.5 mg PO 1600 [facility] Stop: 08/08/17 20:00 Last Admin: 08/08/17 15:41 Dose: 2.5 mg - Exam General: Alert, Cooperative Lungs: Clear to Auscultation, Normal Respiratory Effort Cardiovascular: Regular Rate, Regular Rhythm, No Murmurs Extremities: No Pedal Edema - Problem List & Annotations (1) Palliative care status SNOMED Code(s): 306555377 Code(s): Z51.5 - ENCOUNTER FOR PALLIATIVE CARE Status: Acute Current Visit: Yes (2) MAYA (acute kidney injury) SNOMED Code(s): 03858772 Code(s): N17.9 - ACUTE KIDNEY FAILURE, UNSPECIFIED Status: Acute Current Visit: Yes Annotation/Comment:: Creatinine back to baseline. BUN still elevated. Reduce torsemide to 20 mg po daily due to no IVF. (3) Anticoagulant long-term use SNOMED Code(s): 180617610 Code(s): Z79.01 - FPC (CURRENT) USE OF ANTICOAGULANTS Status: Acute Current Visit: Yes Annotation/Comment:: Therapeutic. Continue to manage per pharmacy. (4) Elevated LFTs SNOMED Code(s): 370038056 Code(s): R79.89 - OTHER SPECIFIED ABNORMAL FINDINGS OF BLOOD CHEMISTRY Status: Acute Current Visit: Yes Annotation/Comment:: Liver enzymes still elevated but stable. Continue to monitor. (5) Hyperkalemia SNOMED Code(s): 51358250 Code(s): E87.5 - HYPERKALEMIA Status: Acute Current Visit: Yes Annotation/Comment:: Normalized. (6) Pneumonia SNOMED Code(s): 182978837 Code(s): J18.9 - PNEUMONIA, UNSPECIFIED ORGANISM Status: Acute Current Visit: Yes Annotation/Comment:: We'll discontinue prednisone after today's dose. Patient completed full course of antibiotic therapy. Clinically appears recovered although still requiring supplemental oxygen. (7) Combined systolic and diastolic congestive heart failure SNOMED Code(s): 01183893 Code(s): I50.40 - UNSP COMBINED SYSTOLIC AND DIASTOLIC (CONGESTIVE) HRT FAIL Status: Chronic Priority: Medium Current Visit: Yes Qualifiers: Congestive heart failure chronicity: acute Qualified Code(s): I50.41 - Acute combined systolic (congestive) and diastolic (congestive) heart failure Annotation/Comment:: I suspect the patient is still in some mild failure given her need for 2 L nasal cannula oxygen which is above her baseline but will continue with above management and see if this decreases her oxygen needs and improves her respiratory status. Last echo 01/22/17 showed left ventricular ejection fraction 45-50% with concentric hypertrophy. Has known diastolic dysfunction. - Problem List Review Problem List Initiated/Reviewed/Updated: Yes - My Orders Last 24 Hours: My Active Orders 08/09/17 16:00 Warfarin [Coumadin] 5 mg PO TuFr@1600 08/10/17 16:00 Warfarin [Coumadin] 2.5 mg PO SuMoWeThSa@1600 - Plan Plan:: This patient needs help with med management. So will put her in swing bed for medicine management especially her diabetes. Social work to see regards to swing bed.
--- NOTE | 2017-08-09 10:45 | PCM.DCSUM1 ---
Discharge Summary - Hospital Course Free Text/Narrative:: Hospital course-patient was put on IV antibiotics and then went to congestive heart failure and hyperkalemia. Spironolactone was stopped. And slowly her potassium was corrected. She went to renal failure and was some fluids creatinine and albumin went back to normal. Patient was very weak with she was here and had trouble walking. She was confused most likely from a metabolic disturbances. As that corrected she improved. 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 But she was having trouble managing her diabetes so we'll put her in swing bed. In the modified assisted living for her. Brief History: This is a 77-year-old female patient came to hospital with cough , shortness of breath. Purulent sputum was found to have pneumonia and was admitted. - Discharge Data Discharge Date: 08/09/17 Discharge Disposition: DC/Tfer W/I Hosp To Swing 61 Condition: Fair - Discharge Diagnosis/Problem(s) (1) Palliative care status SNOMED Code(s): 592413329 ICD Code: Z51.5 - ENCOUNTER FOR PALLIATIVE CARE Status: Acute Current Visit: Yes (2) MAYA (acute kidney injury) SNOMED Code(s): 05509829 ICD Code: N17.9 - ACUTE KIDNEY FAILURE, UNSPECIFIED Status: Acute Current Visit: Yes Problem Details: Creatinine back to baseline. BUN still elevated. Reduce torsemide to 20 mg po daily due to no IVF. (3) Anticoagulant long-term use SNOMED Code(s): 295189137 ICD Code: Z79.01 - ASSISTED (CURRENT) USE OF ANTICOAGULANTS Status: Acute Current Visit: Yes Problem Details: Therapeutic. Continue to manage per pharmacy. (4) Elevated LFTs SNOMED Code(s): 407228307 ICD Code: R79.89 - OTHER SPECIFIED ABNORMAL FINDINGS OF BLOOD CHEMISTRY Status: Acute Current Visit: Yes Problem Details: Liver enzymes still elevated but stable. Continue to monitor. (5) Hyperkalemia SNOMED Code(s): 78756546 ICD Code: E87.5 - HYPERKALEMIA Status: Acute Current Visit: Yes Problem Details: Normalized. (6) Pneumonia SNOMED Code(s): 969434978 ICD Code: J18.9 - PNEUMONIA, UNSPECIFIED ORGANISM Status: Acute Current Visit: Yes Problem Details: We'll discontinue prednisone after today's dose. Patient completed full course of antibiotic therapy. Clinically appears recovered although still requiring supplemental oxygen. 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 Last echo 01/22/17 showed left ventricular ejection fraction 45-50% with concentric hypertrophy. Has known diastolic dysfunction. Qualifiers: Congestive heart failure chronicity: acute Qualified Code(s): I50.41 - Acute combined systolic (congestive) and diastolic (congestive) heart failure - Patient Summary/Data Consults: Consultations 08/07/17 12:05 OT Evaluation and Treatment [CONS] Routine Please Evaluate and Treat. OT Reason for Consult: ADL's This query below is only for informational purposes and is not editable. Admission Diagnosis/Problem: Community acquired pneumonia PT Evaluation and Treatment [CONS] Routine Please Evaluate and Treat. PT Reason for Consult: Ambulation This query below is only for informational purposes and is not editable. Admission Diagnosis/Problem: Community acquired pneumonia - Patient Instructions Diet: Diabetic Diet Activity: As Tolerated Driving: Do Not Drive Showering/Bathing: May Shower Other/Special Instructions: Transfer to swing bed for med management especially diabetes management.. 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 - Discharge Plan Home Medications: Home Meds Acetaminophen [Acetaminophen Extra Strength] 1,000 - 1,500 mg PO BID PRN [History] Allopurinol [Zyloprim] 100 mg PO DAILY 03/03/14 [History] Cyanocobalamin (Vitamin B12) [Vitamin B12] 1,000 mcg IM Q30D 03/03/14 [History] Ezetimibe [Zetia] 10 mg PO BEDTIME 03/03/14 [History] Gabapentin 900 mg PO BID 03/03/14 [History] Milnacipran [Savella] 50 mg PO BID 03/03/14 [History] Omeprazole 20 mg PO Q48H 03/03/14 [History] Simvastatin 80 mg PO BEDTIME 03/03/14 [History] SitaGLIPtin [Januvia] 50 mg PO DAILY 03/03/14 [History] Torsemide [Demadex] 30 mg PO DAILY 03/03/14 [History] Mirtazapine [Remeron] 15 mg PO BEDTIME 05/19/14 [History] Nitroglycerin [Nitrostat] 0.4 mg SL Q5M PRN 05/19/14 [History] glipiZIDE [Glipizide] 5 mg PO BIDMEALS 12/14/14 [History] Carvedilol [Coreg] 25 mg PO BID 12/28/14 [History] Insulin Aspart [NovoLOG] 30 unit SQ BIDMEALS 12/28/14 [History] Insulin Detemir [Levemir] 35 units SQ DAILY 12/28/14 [History] Albuterol [Proventil Neb Soln] 2.5 mg IH QID PRN 02/10/16 [History] Docusate Sodium 100 mg PO BEDTIME 02/10/16 [History] Valsartan 20 mg PO DAILY 02/10/16 [History] Digoxin 125 mcg PO Q48H 02/20/17 [History] Isosorbide Mononitrate [Imdur] 30 mg PO DAILY 02/20/17 [History] Albuterol [Ventolin HFA] 1 - 2 puff INH Q4H PRN 07/28/17 [History] Aspirin [Ecotrin] 81 mg PO DAILY 07/28/17 [History] Bisacodyl [Dulcolax] 15 mg PO BEDTIME 07/28/17 [History] Nystatin [Nystop] 1 applic TP TID PRN 07/28/17 [History] Insulin Aspart [NovoLOG] 30 units SUBCUT ASDIRECTED PRN 07/29/17 [History] Insulin Detemir [Levemir] 30 units SUBCUT BEDTIME 07/29/17 [History] Torsemide 30 mg PO ASDIRECTED PRN 07/29/17 [History] Albuterol/Ipratropium [DuoNeb 3.0-0.5 MG/3 ML] 3 ml NEB Q4H PRN #1 neb 08/09/17 [Rx] Referrals: Guru Tucker MD [Primary Care Provider] - - Discharge Summary/Plan Comment DC Time >30 min.: No - Patient Data Vitals - Most Recent: Last Vital Signs Temp 98.3 F 08/09/17 08:00 Pulse 71 08/09/17 09:53 Resp 20 08/09/17 08:00 BP 165/80 H 08/09/17 08:18 Pulse Ox 91 L 08/09/17 09:53 Weight - Most Recent: 236 lb 11.2 oz Lab Results - Last 24 hrs: Laboratory Results - last 24 hr 08/08/17 08/08/17 08/08/17 Range/Units 11:28 17:17 20:49 PT (8.7-11.1) INR (0.89-1.13) Sodium (135-145) mmol/L Potassium (3.5-5.3) mmol/L Chloride (100-110) mmol/L Carbon Dioxide (23-29) mmol/L BUN (8-23) mg/dL Creatinine (0.6-1.3) mg/dL Est Cr Clr Drug Dosing mL/min Estimated GFR (MDRD) (>60) BUN/Creatinine Ratio (9-20) Glucose (80-116) mg/dL POC Glucose 169 H 87 D 244 H D (80-116) mg/dL Calcium (8.6-10.2) mg/dL Total Bilirubin (0.1-1.3) mg/dL AST (5-27) IU/L ALT (14-26) IU/L Alkaline Phosphatase (56-112) IU/L Total Protein (6.0-8.0) g/dL Albumin (3.2-4.6) g/dL Globulin g/dL Albumin/Globulin Ratio 08/09/17 08/09/17 08/09/17 Range/Units 06:40 06:40 07:42 PT 21.2 H (8.7-11.1) INR 2.07 H (0.89-1.13) Sodium 143 (135-145) mmol/L Potassium 3.8 (3.5-5.3) mmol/L Chloride 101 (100-110) mmol/L Carbon Dioxide 34 H (23-29) mmol/L BUN 45 H (8-23) mg/dL Creatinine 1.4 H (0.6-1.3) mg/dL Est Cr Clr Drug Dosing 24.94 mL/min Estimated GFR (MDRD) 37 L (>60) BUN/Creatinine Ratio 32.1 H (9-20) Glucose 67 L (80-116) mg/dL POC Glucose 52 L D (80-116) mg/dL Calcium 9.5 (8.6-10.2) mg/dL Total Bilirubin 1.4 H (0.1-1.3) mg/dL AST 64 H D (5-27) IU/L ALT 118 H D (14-26) IU/L Alkaline Phosphatase 84 (56-112) IU/L Total Protein 5.9 L (6.0-8.0) g/dL Albumin 3.1 L (3.2-4.6) g/dL Globulin 2.8 g/dL Albumin/Globulin Ratio 1.1 Med Orders - Current: Current Medications Acetaminophen (Tylenol Extra Strength) 1,000 mg PO Q6H PRN PRN Reason: Pain Last Admin: 08/09/17 08:13 Dose: 1,000 mg Albuterol/Ipratropium (Duoneb 3.0-0.5 Mg/3 Ml) 3 ml NEB Q4H PRN PRN Reason: Shortness of Breath Last Admin: 08/09/17 09:53 Dose: 3 ml Allopurinol (Zyloprim) 100 mg PO DAILY [facility] Last Admin: 08/09/17 08:18 Dose: 100 mg Aspirin (Halfprin) 81 mg PO DAILY [facility] Last Admin: 08/09/17 08:18 Dose: 81 mg Bisacodyl (Dulcolax) 15 mg PO BEDTIME [facility] Last Admin: 08/08/17 20:45 Dose: 15 mg Carvedilol (Coreg) 25 mg PO BID [facility] Last Admin: 08/09/17 08:17 Dose: 25 mg Digoxin (Lanoxin) 125 mcg PO Q48H [facility] Last Admin: 08/09/17 08:18 Dose: 125 mcg Docusate Sodium (Colace) 100 mg PO BEDTIME [facility] Last Admin: 08/08/17 20:44 Dose: 100 mg Ezetimibe (Zetia) 10 mg PO BEDTIME [facility] Last Admin: 08/08/17 20:45 Dose: 10 mg Glipizide (Glucotrol) 5 mg PO BIDMEALS [facility] Last Admin: 08/09/17 08:17 Dose: 5 mg Sodium Chloride (Normal Saline) 250 mls @ 100 mls/hr IV ASDIRECTED [facility] Last Admin: 08/03/17 05:21 Dose: 100 mls/hr Insulin Aspart (Novolog) 0 unit SUBCUT TIDMEALS [facility] PRN Reason: Protocol Last Admin: 08/09/17 08:05 Dose: Not Given Insulin Aspart (Novolog) 15 unit SUBCUT TIDMEALS [facility] Last Admin: 08/09/17 08:15 Dose: Not Given Insulin Detemir (Levemir) 25 unit SUBCUT DAILY [facility] Last Admin: 08/08/17 08:39 Dose: 25 units Insulin Detemir (Levemir) 20 unit SUBCUT BEDTIME [facility] Last Admin: 08/08/17 20:50 Dose: 20 units Isosorbide Mononitrate (Imdur) 30 mg PO DAILY [facility] Last Admin: 08/09/17 08:18 Dose: 30 mg Magnesium Hydroxide (Milk Of Magnesia) 30 ml PO DAILY PRN PRN Reason: Constipation Last Admin: 08/01/17 16:56 Dose: 30 ml Milnacipran HCl (Savella) 50 mg PO BID [facility] Last Admin: 08/09/17 08:18 Dose: 50 mg Mirtazapine (Remeron) 15 mg PO BEDTIME [facility] Last Admin: 08/08/17 20:44 Dose: 15 mg Pantoprazole Sodium (Protonix) 40 mg PO Q48H [facility] Last Admin: 08/09/17 07:44 Dose: 40 mg Simvastatin (Zocor) 80 mg PO BEDTIME [facility] Last Admin: 08/08/17 20:44 Dose: 80 mg Sitagliptin Phosphate (Januvia) 50 mg PO DAILY [facility] Last Admin: 08/09/17 08:18 Dose: 50 mg Sodium Chloride (Saline Flush) 10 ml FLUSH ASDIRECTED PRN PRN Reason: Keep Vein Open Last Admin: 08/03/17 06:01 Dose: 10 ml Torsemide (Demadex) 20 mg PO DAILY [facility] Last Admin: 08/09/17 08:18 Dose: 20 mg Warfarin Sodium (Coumadin Sliding Scale) 0 each PO DAILY [facility] Warfarin Sodium (Coumadin) 5 mg PO TuFr@1600 [facility] Warfarin Sodium (Coumadin) 2.5 mg PO SuMoWeThSa@1600 [facility] Discontinued Medications Albuterol/Ipratropium (Duoneb 3.0-0.5 Mg/3 Ml) 3 ml NEB ONETIME ONE Stop: 07/28/17 22:53 Albuterol/Ipratropium (Duoneb 3.0-0.5 Mg/3 Ml) Confirm Administered Dose 3 ml .ROUTE .[facility] ONE Stop: 07/29/17 01:17 Last Admin: 07/29/17 11:40 Dose: Not Given Azithromycin (Zithromax) Confirm Administered Dose 500 mg .ROUTE .[facility] ONE Stop: 07/29/17 04:57 Last Admin: 07/29/17 05:07 Dose: Not Given Escitalopram Oxalate (Lexapro) 5 mg PO DAILY [facility] Last Admin: 08/03/17 08:25 Dose: Not Given Gabapentin (Neurontin) 900 mg PO BID [facility] Last Admin: 08/03/17 20:48 Dose: 900 mg Gabapentin (Neurontin) 300 mg PO BID [facility] Last Admin: 08/05/17 21:37 Dose: 300 mg Sodium Chloride (Normal Saline) 1,000 mls @ 100 mls/hr IV ASDIRECTED [facility] Last Admin: 07/29/17 21:39 Dose: 100 mls/hr Azithromycin 500 mg/ Sodium (Chloride) 250 mls @ 250 mls/hr IV Q24H [facility] Last Admin: 08/04/17 05:27 Dose: 250 mls/hr Sodium Chloride (Normal Saline) 1,000 mls @ as directed IV .[facility] ONE Stop: 07/28/17 23:46 Sodium Chloride (Normal Saline) 1,000 mls @ 125 mls/hr IV ASDIRECTED [facility] Last Admin: 08/07/17 04:07 Dose: 125 mls/hr Sodium Chloride (Normal Saline) 1,000 mls @ 75 mls/hr IV ASDIRECTED [facility] Stop: 08/07/17 02:49 Last Admin: 08/06/17 13:48 Dose: 75 mls/hr Influenza Virus Vaccine (Fluzone Quad [id number]) 60 mcg IM .ONCE ONE Stop: 07/29/17 08:16 Insulin Aspart (Novolog) 10 unit SUBCUT ONETIME ONE Stop: 07/29/17 13:38 Last Admin: 07/29/17 13:56 Dose: 10 units Insulin Aspart (Novolog) 10 unit SUBCUT ONETIME ONE Stop: 07/29/17 17:48 Last Admin: 07/29/17 18:00 Dose: 10 units Insulin Aspart (Novolog) 30 unit SUBCUT TIDMEALS [facility] Last Admin: 08/05/17 18:19 Dose: 30 units Insulin Aspart (Novolog) 18 unit SUBCUT ONETIME ONE Stop: 07/30/17 00:31 Last Admin: 07/30/17 00:46 Dose: 18 units Insulin Aspart (Novolog) 20 unit SUBCUT ONETIME ONE Stop: 07/30/17 02:46 Last Admin: 07/30/17 02:49 Dose: 20 units Insulin Aspart (Novolog) 15 unit SUBCUT ONETIME ONE Stop: 07/30/17 04:46 Last Admin: 07/30/17 04:55 Dose: 15 units Insulin Detemir (Levemir) 35 unit SUBCUT DAILY [facility] Last Admin: 07/29/17 11:37 Dose: 35 units Insulin Detemir (Levemir) 30 unit SUBCUT BEDTIME [facility] Last Admin: 08/05/17 21:36 Dose: 30 units Insulin Detemir (Levemir) 35 unit SUBCUT DAILY [facility] Last Admin: 08/05/17 08:28 Dose: 35 units Iopamidol (Isovue-370 (76%)) 100 ml IV . DIRECTED ONE Stop: 07/29/17 08:56 Last Admin: 07/29/17 02:00 Dose: 79 ml Methylprednisolone Sodium Succinate (Solu-Medrol) Confirm Administered Dose 125 mg .ROUTE .[facility] ONE Stop: 07/28/17 23:46 Last Admin: 07/29/17 11:28 Dose: Not Given Methylprednisolone Sodium Succinate (Solu-Medrol) 40 mg IVPUSH Q8H [facility] Last Admin: 08/04/17 03:11 Dose: 40 mg No Warfarin Dose (Today (08/04/17)) 0 each PO ONETIME ONE Stop: 08/04/17 16:01 Last Admin: 08/04/17 17:08 Dose: Not Given Potassium Chloride (Klor-Con M20) 20 meq PO ONETIME ONE Stop: 07/30/17 00:28 Last Admin: 07/30/17 00:46 Dose: 20 meq Prednisone (Prednisone) 20 mg PO WITHBREAKFAST [facility] Last Admin: 07/29/17 09:21 Dose: 20 mg Prednisone (Prednisone) 40 mg PO WITHBREAKFAST [facility] Last Admin: 08/05/17 09:10 Dose: 40 mg Prednisone (Prednisone) 20 mg PO WITHBREAKFAST [facility] Stop: 08/07/17 12:00 Last Admin: 08/07/17 08:51 Dose: 20 mg Spironolactone (Aldactone) 25 mg PO DAILY [facility] Last Admin: 08/03/17 08:30 Dose: 25 mg Terbutaline Sulfate (Brethine) 0.25 mg SUBCUT Q4H [facility] Last Admin: 07/29/17 08:33 Dose: 0.25 mg Torsemide (Demadex) 30 mg PO DAILY [facility] Last Admin: 08/03/17 08:30 Dose: 30 mg Torsemide (Demadex) 30 mg PO ASDIRECTED PRN PRN Reason: WEIGHT GAIN MORE THAN 3 LBS Torsemide (Demadex) 20 mg PO BIDDIURETIC [facility] Last Admin: 08/06/17 13:15 Dose: 20 mg Valsartan (Diovan) 20 mg PO DAILY [facility] Last Admin: 08/03/17 08:30 Dose: 20 mg Warfarin Sodium (Coumadin) 2.5 mg PO SuMoWeThSa@1600 [facility] Last Admin: 08/01/17 16:20 Dose: 2.5 mg Warfarin Sodium (Coumadin) 5 mg PO TuFr@1600 [facility] Last Admin: 08/02/17 16:10 Dose: 5 mg Warfarin Sodium (Coumadin) 2.5 mg PO 1600 [facility] Last Admin: 08/05/17 17:00 Dose: 2.5 mg Warfarin Sodium (Coumadin) 5 mg PO ONETIME ONE Stop: 08/06/17 16:01 Last Admin: 08/06/17 17:26 Dose: 5 mg Warfarin Sodium (Coumadin) 2.5 mg PO 1600 [facility] Stop: 08/07/17 16:01 Last Admin: 08/07/17 16:58 Dose: 2.5 mg Warfarin Sodium (Coumadin) 2.5 mg PO 1600 [facility] Stop: 08/08/17 20:00 Last Admin: 08/08/17 15:41 Dose: 2.5 mg *Q Meaningful Use (DIS) - VTE *Q VTE Criteria *Q: - Stroke *Q Stroke Criteria *Q: - AMI *Q AMI Criteria *Q:
[2017-08-09] MEDS: Insulin Detemir 100 Units/ML 3 ML Pen SUBCUT SCH (11:10)
[2017-08-09] MEDS ORDERED: Warfarin 5 MG Tab PO SCH (16:00)
[2017-08-10] MEDS ORDERED: Warfarin 2.5 MG Tab PO SCH (16:00)
== END 2017-08-09 10:48 | disposition swing bed (61) | DRG 190 ==
LOC: FB.ED 22:27 → FB.MS 07-29 03:30 → OBSVTOIN 07-29 10:15
PROVIDERS: ADMIT Emergency Medicine; ATTEND Family Medicine
PROC: 05JY3ZZ Inspection of Upper Vein, Percutaneous Approach (ICD-10-PCS; principal; 2017-08-06)
DX: J44.0 Chronic obstructive pulmonary disease with (acute) lower respiratory infection (principal); J18.9 Pneumonia, unspecified organism; I50.43 Acute on chronic combined systolic (congestive) and diastolic (congestive) heart failure; N17.9 Acute kidney failure, unspecified; I42.9 Cardiomyopathy, unspecified; Z68.42 Body mass index [BMI] 45.0-49.9, adult; J44.1 Chronic obstructive pulmonary disease with (acute) exacerbation; I11.0 Hypertensive heart disease with heart failure; E11.9 Type 2 diabetes mellitus without complications; R05 Cough; R06.02 Shortness of breath; R06.00 Dyspnea, unspecified; I48.91 Unspecified atrial fibrillation; Z79.01 Long term (current) use of anticoagulants; Z79.4 Long term (current) use of insulin; Z51.5 Encounter for palliative care; E87.5 Hyperkalemia; R79.89 Other specified abnormal findings of blood chemistry; E86.9 Volume depletion, unspecified; I25.10 Atherosclerotic heart disease of native coronary artery without angina pectoris; Z95.2 Presence of prosthetic heart valve; I35.0 Nonrheumatic aortic (valve) stenosis; I34.0 Nonrheumatic mitral (valve) insufficiency; Z95.1 Presence of aortocoronary bypass graft; M10.9 Gout, unspecified; E66.01 Morbid (severe) obesity due to excess calories; F32.9 Major depressive disorder, single episode, unspecified; M79.7 Fibromyalgia; I25.2 Old myocardial infarction; E78.5 Hyperlipidemia, unspecified; M54.9 Dorsalgia, unspecified; G89.29 Other chronic pain; Z86.718 Personal history of other venous thrombosis and embolism; Z88.5 Allergy status to narcotic agent; Z88.0 Allergy status to penicillin; Z88.8 Allergy status to other drugs, medicaments and biological substances
CPT/HCPCS: 36415; 36600; 71020; 71270; 80053; 82803; 84484; 85025; 85379; 85610; 93005; 94640 ×3; 96361; 96372; 96374; 99285; A9270 ×2; J0456; J2930; J3105 ×2; J7040 ×2; J7050; J7620 ×3; Q9967; 36569; 76937; 80048; 80162; 82565; 82947; 82962; 83880; 84132; 84145; 94150; 97110-GP; 97116-GP; 97161-GP; 97165-GO; 97530-GP; 99283; J2920

== ENCOUNTER 2017-08-09 10:48 | Inpatient (IN) | payer MEDICARE, MEDICAID ==
[2017-08-09] MEDS: Menthol/Methyl Salicylate 142 GM Jar TOP PRN (15:14)
[2017-08-09] MEDS ORDERED: Warfarin 5 MG Tab PO SCH (16:00)
[2017-08-09] MEDS ORDERED: Nystatin Topical Powder 15 GM Bottle TOP PRN (17:19)
[2017-08-09] MEDS ORDERED: Nitroglycerin 0.4 MG Tab.SL SL PRN (17:19)
[2017-08-09] MEDS: Insulin Aspart 100 Units/ML 3 ML Pen SUBCUT SCH (18:25)
[2017-08-09] MEDS: glipiZIDE 5 MG Tab PO SCH (18:25)
[2017-08-09] MEDS: Ezetimibe 10 MG Tab PO SCH (21:00)
[2017-08-09] MEDS: Bisacodyl 5 MG Tab PO SCH (21:00)
[2017-08-09] MEDS: Carvedilol 25 MG Tab PO SCH (21:00)
[2017-08-09] MEDS: Docusate Sodium 100 MG Cap PO SCH (21:00)
[2017-08-09] MEDS: Mirtazapine 15 MG Tab PO SCH (21:00)
[2017-08-09] MEDS: Insulin Detemir 100 Units/ML 3 ML Pen SUBCUT SCH (21:02)
[2017-08-10] MEDS: Acetaminophen 500 MG Tab PO PRN (00:43)
[2017-08-10] MEDS: Menthol/Methyl Salicylate 142 GM Jar TOP PRN (06:20)
[2017-08-10] MEDS: Insulin Aspart 100 Units/ML 3 ML Pen SUBCUT SCH ×3 (08:06→18:09)
[2017-08-10] MEDS: Insulin Detemir 100 Units/ML 3 ML Pen SUBCUT SCH ×2 (08:14→20:52)
[2017-08-10] MEDS: Aspirin 81 MG Tab.EC PO SCH (08:16)
[2017-08-10] MEDS: Carvedilol 25 MG Tab PO SCH ×2 (08:16→20:52)
[2017-08-10] MEDS: Isosorbide Mononitrate 30 MG Tab.ER PO SCH (08:16)
[2017-08-10] MEDS: Torsemide 20 MG Tab PO SCH (08:16)
[2017-08-10] MEDS: Allopurinol 100 MG Tab PO SCH (08:16)
[2017-08-10] MEDS: glipiZIDE 5 MG Tab PO SCH (08:18)
[2017-08-10] MEDS ORDERED: Warfarin Sliding Scale PO SCH (09:00)
[2017-08-10] MEDS: Albuterol/Ipratropium 3.0-0.5 MG/3 ML Neb Soln NEB PRN (09:15)
[2017-08-10] MEDS ORDERED: FLU Vacc QS 2017-18 (36mos UP)/PF 60 MCG/0.5 ML Syringe IM ONE (11:15)
[2017-08-10] MEDS: Warfarin 2.5 MG Tab PO SCH (16:03)
[2017-08-10] MEDS: Docusate Sodium 100 MG Cap PO SCH (20:52)
[2017-08-10] MEDS: Bisacodyl 5 MG Tab PO SCH (20:52)
[2017-08-10] MEDS: Mirtazapine 15 MG Tab PO SCH (20:52)
[2017-08-10] MEDS: Ezetimibe 10 MG Tab PO SCH (21:12)
[2017-08-11] MEDS: Pantoprazole 40 MG Tab.CR PO SCH (06:36)
[2017-08-11] MEDS: Menthol/Methyl Salicylate 142 GM Jar TOP PRN (07:26)
[2017-08-11] MEDS ORDERED: glipiZIDE 5 MG Tab PO SCH (08:00)
[2017-08-11] MEDS: Carvedilol 25 MG Tab PO SCH ×2 (08:28→20:42)
[2017-08-11] MEDS: Allopurinol 100 MG Tab PO SCH (08:29)
[2017-08-11] MEDS: Digoxin 125 MCG Tab PO SCH (08:29)
[2017-08-11] MEDS: Isosorbide Mononitrate 30 MG Tab.ER PO SCH (08:29)
[2017-08-11] MEDS: Torsemide 20 MG Tab PO SCH (08:29)
[2017-08-11] MEDS: Aspirin 81 MG Tab.EC PO SCH (08:29)
[2017-08-11] MEDS: Insulin Detemir 100 Units/ML 3 ML Pen SUBCUT SCH ×2 (08:30→20:41)
[2017-08-11] MEDS: Insulin Aspart 100 Units/ML 3 ML Pen SUBCUT SCH ×3 (08:30→17:56)
[2017-08-11] MEDS: Albuterol/Ipratropium 3.0-0.5 MG/3 ML Neb Soln NEB PRN (09:04)
[2017-08-11] MEDS: Acetaminophen 500 MG Tab PO PRN (14:52)
[2017-08-11] MEDS: Warfarin 2.5 MG Tab PO SCH (16:00)
[2017-08-11] MEDS: Bisacodyl 5 MG Tab PO SCH (20:35)
[2017-08-11] MEDS: Ezetimibe 10 MG Tab PO SCH (20:35)
[2017-08-11] MEDS: Mirtazapine 15 MG Tab PO SCH (20:35)
[2017-08-11] MEDS: Docusate Sodium 100 MG Cap PO SCH (20:35)
[2017-08-12] MEDS: Insulin Aspart 100 Units/ML 3 ML Pen SUBCUT SCH ×3 (08:24→17:52)
[2017-08-12] MEDS: Acetaminophen 500 MG Tab PO PRN (08:37)
[2017-08-12] MEDS: Isosorbide Mononitrate 30 MG Tab.ER PO SCH (08:38)
[2017-08-12] MEDS: Aspirin 81 MG Tab.EC PO SCH (08:38)
[2017-08-12] MEDS: Torsemide 20 MG Tab PO SCH (08:38)
[2017-08-12] MEDS: Carvedilol 25 MG Tab PO SCH ×2 (08:39→20:15)
[2017-08-12] MEDS: Allopurinol 100 MG Tab PO SCH (08:39)
[2017-08-12] MEDS: Insulin Detemir 100 Units/ML 3 ML Pen SUBCUT SCH ×2 (08:50→20:16)
[2017-08-12] MEDS: Albuterol/Ipratropium 3.0-0.5 MG/3 ML Neb Soln NEB PRN (10:47)
[2017-08-12] MEDS ORDERED: Warfarin 2.5 MG Tab PO SCH (16:00)
[2017-08-12] MEDS ORDERED: Cyanocobalamin (Vitamin B12) 1,000 MCG/ML SDV IM SCH (16:00)
[2017-08-12] MEDS: Docusate Sodium 100 MG Cap PO SCH (20:15)
[2017-08-12] MEDS: Ezetimibe 10 MG Tab PO SCH (20:15)
[2017-08-12] MEDS: Mirtazapine 15 MG Tab PO SCH (20:16)
[2017-08-12] MEDS: Bisacodyl 5 MG Tab PO SCH (20:16)
[2017-08-13] MEDS: Pantoprazole 40 MG Tab.CR PO SCH (06:14)
--- NOTE | 2017-08-13 07:45 | PCM.PN ---
- General Info Date of Service: 08/13/17 Admission Dx/Problem (Free Text): Patient without complaints. She denies cough, fevers, chills, shortness of breath or chest pain. She states his a leg swelling - Patient Data Vitals - Most Recent: Last Vital Signs Temp 97.7 F 08/12/17 08:25 Pulse 79 08/12/17 20:15 Resp 20 08/12/17 08:25 BP 112/56 L 08/12/17 20:15 Pulse Ox 95 08/12/17 11:13 Weight - Most Recent: 233 lb I&O - Last 24 Hours: Intake & Output 08/12/17 08/13/17 08/13/17 22:59 06:59 14:59 Intake Total 720 Balance 720 Lab Results Last 24 Hours: Laboratory Results - last 24 hr 08/12/17 08/12/17 08/13/17 Range/Units 09:50 17:12 06:18 PT 20.5 H (8.7-11.1) INR 2.00 H (0.89-1.13) POC Glucose 161 H 142 H (80-116) mg/dL 08/13/17 Range/Units 06:25 PT 19.0 H (8.7-11.1) INR 1.86 H (0.89-1.13) POC Glucose (80-116) mg/dL Med Orders - Current: Current Medications Acetaminophen (Tylenol Extra Strength) 1,000 mg PO BID PRN PRN Reason: Pain Last Admin: 08/12/17 08:37 Dose: 1,000 mg Albuterol/Ipratropium (Duoneb 3.0-0.5 Mg/3 Ml) 3 ml NEB Q4H PRN PRN Reason: Dyspnea Last Admin: 08/12/17 10:47 Dose: 3 ml Allopurinol (Zyloprim) 100 mg PO DAILY [facility] Last Admin: 08/12/17 08:39 Dose: 100 mg Aspirin (Halfprin) 81 mg PO DAILY [facility] Last Admin: 08/12/17 08:38 Dose: 81 mg Bisacodyl (Dulcolax) 15 mg PO BEDTIME [facility] Last Admin: 08/12/17 20:16 Dose: 15 mg Carvedilol (Coreg) 25 mg PO BID [facility] Last Admin: 08/12/17 20:15 Dose: 25 mg Cyanocobalamin (Vitamin B12) 1,000 mcg IM Q30D [facility] Last Admin: 08/12/17 16:15 Dose: 1,000 mcg Digoxin (Lanoxin) 125 mcg PO Q48H [facility] Last Admin: 08/11/17 08:29 Dose: 125 mcg Docusate Sodium (Colace) 100 mg PO BEDTIME [facility] Last Admin: 08/12/17 20:15 Dose: 100 mg Ezetimibe (Zetia) 10 mg PO BEDTIME [facility] Last Admin: 08/12/17 20:15 Dose: 10 mg Insulin Aspart (Novolog) 10 unit SUBCUT TIDMEALS [facility] Last Admin: 08/12/17 17:52 Dose: 10 units Insulin Detemir (Levemir) 25 unit SUBCUT DAILY [facility] Last Admin: 08/12/17 08:50 Dose: 25 units Insulin Detemir (Levemir) 20 unit SUBCUT BEDTIME [facility] Last Admin: 08/12/17 20:16 Dose: 20 units Isosorbide Mononitrate (Imdur) 30 mg PO DAILY [facility] Last Admin: 08/12/17 08:38 Dose: 30 mg Methyl Salicylate (Thera-Gesic Analgesic Cream) 0 gm TOP QID PRN PRN Reason: muscle pain Last Admin: 08/11/17 07:26 Dose: 1 applic Milnacipran HCl (Savella) 50 mg PO BID [facility] Last Admin: 08/12/17 20:15 Dose: 50 mg Mirtazapine (Remeron) 15 mg PO BEDTIME [facility] Last Admin: 08/12/17 20:16 Dose: 15 mg Nitroglycerin (Nitrostat) 0.4 mg SL Q5M PRN PRN Reason: Chest Pain Nystatin (Nystop) 0 gm TOP TID PRN PRN Reason: Hives Pantoprazole Sodium (Protonix) 20 mg PO Q48H [facility] Last Admin: 08/13/17 06:14 Dose: 20 mg Simvastatin (Zocor) 80 mg PO BEDTIME [facility] Last Admin: 08/12/17 20:15 Dose: 80 mg Sitagliptin Phosphate (Januvia) 50 mg PO DAILY [facility] Last Admin: 08/12/17 08:39 Dose: 50 mg Torsemide (Demadex) 20 mg PO DAILY [facility] Last Admin: 08/12/17 08:38 Dose: 20 mg Warfarin Sodium (Coumadin Sliding Scale) 1 each PO DAILY [facility] Warfarin Sodium (Coumadin) 2.5 mg PO SuMoWeFr [facility] Last Admin: 08/12/17 15:58 Dose: 2.5 mg Warfarin Sodium (Coumadin) 5 mg PO TuThSa [facility] Discontinued Medications Glipizide (Glucotrol) 5 mg PO BIDMEALS [facility] Last Admin: 08/10/17 08:18 Dose: 5 mg Glipizide (Glucotrol) 5 mg PO WITHBREAKFAST [facility] Influenza Virus Vaccine (Fluzone Quad [id number]) 60 mcg IM .ONCE ONE Stop: 08/10/17 11:16 Last Admin: 08/12/17 16:02 Dose: 60 mcg Insulin Aspart (Novolog) 15 unit SUBCUT TIDMEALS [facility] Last Admin: 08/10/17 12:21 Dose: 15 units Warfarin Sodium (Coumadin) 5 mg PO TUFR [facility] Last Admin: 08/09/17 18:24 Dose: 5 mg Warfarin Sodium (Coumadin) 2.5 mg PO SUMOWETHSA [facility] Last Admin: 08/11/17 16:00 Dose: 2.5 mg - Exam General: Alert, Oriented, Cooperative Neck: Supple Lungs: Clear to Auscultation, Normal Respiratory Effort Cardiovascular: Regular Rate, No Murmurs Extremities: No Pedal Edema - Problem List & Annotations (1) COPD, Moderate chronic obstructive pulmonary disease SNOMED Code(s): 236182749 Code(s): J44.9 - CHRONIC OBSTRUCTIVE PULMONARY DISEASE, UNSPECIFIED Status : Acute Priority: Medium Current Visit: No Onset Date: 05/19/14 Annotation/Comment:: Exacerbation. Steroids, Duonebs, antibiotic. O2. CXR reviewed. Improving slowly. Continue as ordered. (2) Cardiomyopathy SNOMED Code(s): 24339770 Code(s): I42.9 - CARDIOMYOPATHY, UNSPECIFIED Status: Acute Current Visit : No Annotation/Comment:: Echo 03/03 EF 40 %. Continue current medications (3) Elevated LFTs SNOMED Code(s): 978473957 Code(s): R79.89 - OTHER SPECIFIED ABNORMAL FINDINGS OF BLOOD CHEMISTRY Status: Acute Current Visit: No Annotation/Comment:: Liver enzymes still elevated but stable. Continue to monitor. (4) Hyperkalemia SNOMED Code(s): 80546790 Code(s): E87.5 - HYPERKALEMIA Status: Acute Current Visit: No Annotation/Comment:: Normalized. (5) Pneumonia SNOMED Code(s): 235993245 Code(s): J18.9 - PNEUMONIA, UNSPECIFIED ORGANISM Status: Acute Current Visit: No Annotation/Comment:: We'll discontinue prednisone after today's dose. Patient completed full course of antibiotic therapy. Clinically appears recovered although still requiring supplemental oxygen. (6) Combined systolic and diastolic congestive heart failure SNOMED Code(s): 90795582 Code(s): I50.40 - UNSP COMBINED SYSTOLIC AND DIASTOLIC (CONGESTIVE) HRT FAIL Status: Chronic Priority: Medium Current Visit: No Qualifiers: Annotation/Comment:: I suspect the patient is still in some mild failure given her need for 2 L nasal cannula oxygen which is above her baseline but will continue with above management and see if this decreases her oxygen needs and improves her respiratory status. Last echo 01/22/17 showed left ventricular ejection fraction 45-50% with concentric hypertrophy. Has known diastolic dysfunction. (7) Diabetes type 2, controlled SNOMED Code(s): 42211583 Code(s): E11.9 - TYPE 2 DIABETES MELLITUS WITHOUT COMPLICATIONS Status: Acute Current Visit: Yes - Problem List Review Problem List Initiated/Reviewed/Updated: Yes - My Orders Last 24 Hours: My Active Orders 08/12/17 16:00 Cyanocobalamin (Vitamin B12) [Vitamin B12] 1,000 mcg IM Q30D Warfarin [Coumadin] 2.5 mg PO SuMoWeFr 08/13/17 16:00 Warfarin [Coumadin] 5 mg PO TuThSa - Plan Plan:: Discharge to the [facility] with home health. We will hold her sulfonylurea and Spiranolactone.
--- NOTE | 2017-08-13 07:52 | PCM.DCSUM1 ---
Discharge Summary - Hospital Course Free Text/Narrative:: Patient did well. She did not need PT/OT but did need her blood sugars manage. Her blood sugars were in the low 50s and 60s so I stopped her sulfonylurea will order Humalog to 13 units 3 times a day. She did quite well and decided to go to [facility] on home health. I will send her home on her regular insulin dose but holding her sulfa urea. She'll continue her Januvia. The doctor there was a hospice before me stopped her Spiranolactone because her hyperkalemia. This will also be held at this time. Brief History: This is a 77-year-old female patient was transferred from inpatient to swing bed for CHF, hyperkalemia, confusion, diabetes and pneumonia. - Discharge Data Discharge Date: 08/13/17 Discharge Disposition: Home, Home Health Agency 06 Condition: Good - Discharge Diagnosis/Problem(s) (1) COPD, Moderate chronic obstructive pulmonary disease SNOMED Code(s): 807407291 ICD Code: J44.9 - CHRONIC OBSTRUCTIVE PULMONARY DISEASE, UNSPECIFIED Status : Acute Priority: Medium Current Visit: No Onset Date: 05/19/14 Problem Details: Exacerbation. Steroids, Duonebs, antibiotic. O2. CXR reviewed. Improving slowly. Continue as ordered. (2) Cardiomyopathy SNOMED Code(s): 62265488 ICD Code: I42.9 - CARDIOMYOPATHY, UNSPECIFIED Status: Acute Current Visit : No Problem Details: Echo 03/03 EF 40 %. Continue current medications (3) Elevated LFTs SNOMED Code(s): 174418109 ICD Code: R79.89 - OTHER SPECIFIED ABNORMAL FINDINGS OF BLOOD CHEMISTRY Status: Acute Current Visit: No Problem Details: Liver enzymes still elevated but stable. Continue to monitor. (4) Hyperkalemia SNOMED Code(s): 24554531 ICD Code: E87.5 - HYPERKALEMIA Status: Acute Current Visit: No Problem Details: Normalized. (5) Pneumonia SNOMED Code(s): 829520096 ICD Code: J18.9 - PNEUMONIA, UNSPECIFIED ORGANISM Status: Acute Current Visit: No Problem Details: We'll discontinue prednisone after today's dose. Patient completed full course of antibiotic therapy. Clinically appears recovered although still requiring supplemental oxygen. 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 Last echo 01/22/17 showed left ventricular ejection fraction 45-50% with concentric hypertrophy. Has known diastolic dysfunction. Qualifiers: (7) Diabetes type 2, controlled SNOMED Code(s): 28182651 ICD Code: E11.9 - TYPE 2 DIABETES MELLITUS WITHOUT COMPLICATIONS Status: Acute Current Visit: Yes (8) Confusion SNOMED Code(s): 678813166 ICD Code: R41.0 - DISORIENTATION, UNSPECIFIED Status: Acute Current Visit : Yes - Patient Instructions Diet: Diabetic Diet Activity: Apply Ice Driving: Do Not Drive Showering/Bathing: May Shower Notify Provider of: Fever, Increased Pain Other/Special Instructions: 1. Recheck with Dr. Tucker in 7-14 days. 2. Home health regarding home safety, medication management, diabetes management. 3. Coumadin to be managed by [facility] Coumadin clinic. 4. Note to home health that her spironolactone and sulfonylureas were stopped. Need to watch blood sugars very carefully and her CHF. Please relate this to Dr. Tucker. - Discharge Plan Home Medications: Home Meds Acetaminophen [Acetaminophen Extra Strength] 1,000 - 1,500 mg PO BID PRN [History] Allopurinol [Zyloprim] 100 mg PO DAILY 03/03/14 [History] Cyanocobalamin (Vitamin B12) [Vitamin B12] 1,000 mcg IM Q30D 03/03/14 [History] Ezetimibe [Zetia] 10 mg PO BEDTIME 03/03/14 [History] Milnacipran [Savella] 50 mg PO BID 03/03/14 [History] Omeprazole 20 mg PO Q48H 03/03/14 [History] Simvastatin 80 mg PO BEDTIME 03/03/14 [History] SitaGLIPtin [Januvia] 50 mg PO DAILY 03/03/14 [History] Torsemide [Demadex] 20 mg PO DAILY 03/03/14 [History] Mirtazapine [Remeron] 15 mg PO BEDTIME 05/19/14 [History] Nitroglycerin [Nitrostat] 0.4 mg SL Q5M PRN 05/19/14 [History] Carvedilol [Coreg] 25 mg PO BID 12/28/14 [History] Insulin Aspart [NovoLOG] 15 unit SQ TIDMEALS 12/28/14 [History] Insulin Detemir [Levemir] 25 units SQ DAILY 12/28/14 [History] Docusate Sodium 100 mg PO BEDTIME 02/10/16 [History] Digoxin 125 mcg PO Q48H 02/20/17 [History] Isosorbide Mononitrate [Imdur] 30 mg PO DAILY 02/20/17 [History] Aspirin [Ecotrin] 81 mg PO DAILY 07/28/17 [History] Bisacodyl [Dulcolax] 15 mg PO BEDTIME 07/28/17 [History] Nystatin [Nystop] 1 applic TP TID PRN 07/28/17 [History] Insulin Detemir [Levemir] 20 units SUBCUT BEDTIME 07/29/17 [History] Albuterol/Ipratropium [DuoNeb 3.0-0.5 MG/3 ML] 3 ml NEB Q4H PRN #1 neb 08/09/17 [Rx] Warfarin [Coumadin] 2.5 mg PO SUMOWETHSA 08/09/17 [History] Warfarin [Coumadin] 5 mg PO TUFR 08/09/17 [History] - Discharge Summary/Plan Comment DC Time >30 min.: No - Patient Data Vitals - Most Recent: Last Vital Signs Temp 97.7 F 08/12/17 08:25 Pulse 79 08/12/17 20:15 Resp 20 08/12/17 08:25 BP 112/56 L 08/12/17 20:15 Pulse Ox 95 08/12/17 11:13 Weight - Most Recent: 233 lb I&O - Last 24 hours: Intake & Output 08/12/17 08/13/17 08/13/17 22:59 06:59 14:59 Intake Total 720 Balance 720 Lab Results - Last 24 hrs: Laboratory Results - last 24 hr 08/12/17 08/12/17 08/13/17 Range/Units 09:50 17:12 06:18 PT 20.5 H (8.7-11.1) INR 2.00 H (0.89-1.13) POC Glucose 161 H 142 H (80-116) mg/dL 08/13/17 Range/Units 06:25 PT 19.0 H (8.7-11.1) INR 1.86 H (0.89-1.13) POC Glucose (80-116) mg/dL Med Orders - Current: Current Medications Acetaminophen (Tylenol Extra Strength) 1,000 mg PO BID PRN PRN Reason: Pain Last Admin: 08/12/17 08:37 Dose: 1,000 mg Albuterol/Ipratropium (Duoneb 3.0-0.5 Mg/3 Ml) 3 ml NEB Q4H PRN PRN Reason: Dyspnea Last Admin: 08/12/17 10:47 Dose: 3 ml Allopurinol (Zyloprim) 100 mg PO DAILY [facility] Last Admin: 08/12/17 08:39 Dose: 100 mg Aspirin (Halfprin) 81 mg PO DAILY [facility] Last Admin: 08/12/17 08:38 Dose: 81 mg Bisacodyl (Dulcolax) 15 mg PO BEDTIME [facility] Last Admin: 08/12/17 20:16 Dose: 15 mg Carvedilol (Coreg) 25 mg PO BID [facility] Last Admin: 08/12/17 20:15 Dose: 25 mg Cyanocobalamin (Vitamin B12) 1,000 mcg IM Q30D [facility] Last Admin: 08/12/17 16:15 Dose: 1,000 mcg Digoxin (Lanoxin) 125 mcg PO Q48H [facility] Last Admin: 08/11/17 08:29 Dose: 125 mcg Docusate Sodium (Colace) 100 mg PO BEDTIME [facility] Last Admin: 08/12/17 20:15 Dose: 100 mg Ezetimibe (Zetia) 10 mg PO BEDTIME [facility] Last Admin: 08/12/17 20:15 Dose: 10 mg Insulin Aspart (Novolog) 10 unit SUBCUT TIDMEALS [facility] Last Admin: 08/12/17 17:52 Dose: 10 units Insulin Detemir (Levemir) 25 unit SUBCUT DAILY [facility] Last Admin: 08/12/17 08:50 Dose: 25 units Insulin Detemir (Levemir) 20 unit SUBCUT BEDTIME [facility] Last Admin: 10/23/17 20:16 Dose: 20 units Isosorbide Mononitrate (Imdur) 30 mg PO DAILY [facility] Last Admin: 08/12/17 08:38 Dose: 30 mg Methyl Salicylate (Thera-Gesic Analgesic Cream) 0 gm TOP QID PRN PRN Reason: muscle pain Last Admin: 08/11/17 07:26 Dose: 1 applic Milnacipran HCl (Savella) 50 mg PO BID [facility] Last Admin: 08/12/17 20:15 Dose: 50 mg Mirtazapine (Remeron) 15 mg PO BEDTIME [facility] Last Admin: 08/12/17 20:16 Dose: 15 mg Nitroglycerin (Nitrostat) 0.4 mg SL Q5M PRN PRN Reason: Chest Pain Nystatin (Nystop) 0 gm TOP TID PRN PRN Reason: Hives Pantoprazole Sodium (Protonix) 20 mg PO Q48H [facility] Last Admin: 08/13/17 06:14 Dose: 20 mg Simvastatin (Zocor) 80 mg PO BEDTIME [facility] Last Admin: 08/12/17 20:15 Dose: 80 mg Sitagliptin Phosphate (Januvia) 50 mg PO DAILY [facility] Last Admin: 08/12/17 08:39 Dose: 50 mg Torsemide (Demadex) 20 mg PO DAILY [facility] Last Admin: 08/12/17 08:38 Dose: 20 mg Warfarin Sodium (Coumadin Sliding Scale) 1 each PO DAILY [facility] Warfarin Sodium (Coumadin) 2.5 mg PO SuMoWeFr [facility] Last Admin: 08/12/17 15:58 Dose: 2.5 mg Warfarin Sodium (Coumadin) 5 mg PO TuThSa [facility] Discontinued Medications Glipizide (Glucotrol) 5 mg PO BIDMEALS [facility] Last Admin: 08/10/17 08:18 Dose: 5 mg Glipizide (Glucotrol) 5 mg PO WITHBREAKFAST [facility] Influenza Virus Vaccine (Fluzone Quad [id number]) 60 mcg IM .ONCE ONE Stop: 08/10/17 11:16 Last Admin: 08/12/17 16:02 Dose: 60 mcg Insulin Aspart (Novolog) 15 unit SUBCUT TIDMEALS [facility] Last Admin: 08/10/17 12:21 Dose: 15 units Warfarin Sodium (Coumadin) 5 mg PO TUFR [facility] Last Admin: 08/09/17 18:24 Dose: 5 mg Warfarin Sodium (Coumadin) 2.5 mg PO SUMOWETHSA [facility] Last Admin: 08/11/17 16:00 Dose: 2.5 mg *Q Meaningful Use (DIS) - VTE *Q VTE Criteria *Q: - Stroke *Q Stroke Criteria *Q: - AMI *Q AMI Criteria *Q:
[2017-08-13] MEDS: Insulin Aspart 100 Units/ML 3 ML Pen SUBCUT SCH (09:19)
[2017-08-13] MEDS: Carvedilol 25 MG Tab PO SCH (09:20)
[2017-08-13] MEDS: Isosorbide Mononitrate 30 MG Tab.ER PO SCH (09:21)
[2017-08-13] MEDS: Torsemide 20 MG Tab PO SCH (09:21)
[2017-08-13] MEDS: Aspirin 81 MG Tab.EC PO SCH (09:21)
[2017-08-13] MEDS: Digoxin 125 MCG Tab PO SCH (09:22)
[2017-08-13] MEDS: Insulin Detemir 100 Units/ML 3 ML Pen SUBCUT SCH (09:22)
[2017-08-13] MEDS: Allopurinol 100 MG Tab PO SCH (09:23)
[2017-08-13 09:27] VITALS: BP 142/63
[2017-08-13] MEDS ORDERED: Warfarin 5 MG Tab PO SCH (16:00)
== END 2017-08-13 11:00 | disposition home health service (06) | DRG 637 ==
LOC: FB.MS 10:48
PROVIDERS: ADMIT Family Medicine; ATTEND Family Medicine
DX: E11.9 Type 2 diabetes mellitus without complications (principal); I50.41 Acute combined systolic (congestive) and diastolic (congestive) heart failure; I42.9 Cardiomyopathy, unspecified; Z79.4 Long term (current) use of insulin; Z87.01 Personal history of pneumonia (recurrent); E87.5 Hyperkalemia; Z51.5 Encounter for palliative care; Z79.01 Long term (current) use of anticoagulants; I25.10 Atherosclerotic heart disease of native coronary artery without angina pectoris; E78.5 Hyperlipidemia, unspecified; Z23 Encounter for immunization; R79.89 Other specified abnormal findings of blood chemistry; Z79.82 Long term (current) use of aspirin; Z88.5 Allergy status to narcotic agent; Z88.8 Allergy status to other drugs, medicaments and biological substances; Z88.0 Allergy status to penicillin; J44.9 Chronic obstructive pulmonary disease, unspecified
CPT/HCPCS: 36415; 82962; 85610; 90686; 94640; A9270-GY; G0008; J3420; J7620

== ENCOUNTER 2019-03-11 12:58 | Inpatient (IN) | payer MEDICARE, MEDICAID ==
--- NOTE | 2019-03-11 14:16 | EDM.PDOC ---
ED HPI GENERAL MEDICAL PROBLEM - General Chief Complaint: Respiratory Problem Time Seen by Provider: 03/11/19 13:20 Source of Information: Reports: Patient, [facility] (intermediate personnel called me and informed me that patient is not compliant with her diet but does take all her medications as they give them to her.) History Limitations: Reports: No Limitations - History of Present Illness INITIAL COMMENTS - FREE TEXT/NARRATIVE: 78-year-old female who reports 2 day history of increased difficulty breathing and she feels a swelling all over. She reports an 11 pound weight gain over the past 2 days. She has had no chest pain. He has had no palpitations. Shortness of breath is worse with activity and when trying to lie down. She tells me that she has been taking her medicines because "they give me my medications and watch me take them". 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 She does tell me that she fell in [employer] when she was with her daughter last week and landed on her left side. She did not hit her head. There was no loss of consciousness. There was no weakness or dizziness. She feels improved since then and has been able to ambulate without problems. Her major concern is her shortness of breath that has been progressive over the past 2 days and increased weight gain which she feels is "water". She has no pain right now. She rates her pain as a 0/10. There are no other associated signs or symptoms. There are no other modifying factors. Onset: Other (2 days ago) Duration: Getting Worse Location: Reports: Other (Not applicable) Quality: Reports: Other (No pain) Severity: Moderate (This refers to her breathing difficulty) Improves with: Reports: Rest Worsens with: Reports: Other (Activity) Context: Reports: Other (Not applicable) Associated Symptoms: Reports: Shortness of Breath Treatments INSPECTOR BICYCLE: Reports: Other (see below) (Nothing) - Related Data Allergies Allergy/AdvReac Type Severity Reaction Status Date / Time oxycodone [Oxycodone] Allergy Hives Verified 03/11/19 13:14 Penicillins Allergy Hives Verified 03/11/19 13:14 phenylephrine Allergy Cannot Verified 05/22/19 13:14 Remember tropicamide Allergy Hives Verified 03/11/19 13:14 Home Meds: Home Meds Acetaminophen [Acetaminophen Extra Strength] 1,000 mg PO BID PRN 03/03/14 [ History] Allopurinol [Zyloprim] 100 mg PO DAILY 03/03/14 [History] Cyanocobalamin (Vitamin B12) [Vitamin B12] 1,000 mcg IM Q30D 03/03/14 [History] Ezetimibe [Zetia] 10 mg PO DAILY 03/03/14 [History] Milnacipran [Savella] 50 mg PO BID 03/03/14 [History] Omeprazole 20 mg PO Q48H 03/03/14 [History] Simvastatin 80 mg PO BEDTIME 03/03/14 [History] SitaGLIPtin [Januvia] 50 mg PO DAILY 03/03/14 [History] Mirtazapine [Remeron] 15 mg PO BEDTIME 05/19/14 [History] Nitroglycerin [Nitrostat] 0.4 mg SL Q5M PRN 05/19/14 [History] Carvedilol [Coreg] 25 mg PO BID 12/28/14 [History] Docusate Sodium 100 mg PO DAILY 02/10/16 [History] Digoxin 125 mcg PO Q48H 02/20/17 [History] Isosorbide Mononitrate [Imdur] 30 mg PO DAILY 02/20/17 [History] Bisacodyl [Dulcolax] 15 mg PO BEDTIME 07/28/17 [History] Albuterol/Ipratropium [DuoNeb 3.0-0.5 MG/3 ML] 3 ml INH Q4H PRN #90 ml 08/13/17 [Rx] Acetaminophen [Tylenol Extra Strength] 500 mg PO TIDMEALS 03/11/19 [History] Aspirin 81 mg PO DAILY 03/11/19 [History] Bumetanide 0.5 mg PO ASDIRECTED PRN 03/11/19 [History] Bumetanide [Bumex] 2 mg PO BID@08,12 03/11/19 [History] Cholecalciferol (Vitamin D3) [Vitamin D3] 2,000 units PO DAILY 03/11/19 [History ] Gabapentin [Neurontin] 300 mg PO DAILY@1200 03/11/19 [History] Gabapentin [Neurontin] 600 mg PO BID 03/11/19 [History] Insulin Aspart [NovoLOG] 20 units SUBCUT WITHLUNCH 03/11/19 [History] Insulin Aspart [NovoLOG] 24 units SUBCUT WITHDINNER 03/11/19 [History] Insulin Aspart [NovoLOG] 25 unit SQ WITHBREAKFAST 03/11/19 [History] Insulin Detemir [Levemir Flextouch] 34 units SUBCUT DAILY 03/11/19 [History] Insulin Detemir [Levemir Flextouch] 48 units SUBCUT BEDTIME 03/11/19 [History] Magnesium Oxide 400 mg PO BIDMEALS 03/11/19 [History] Polyethylene Glycol 3350 [MiraLAX] 17 gm PO DAILY PRN 03/11/19 [History] Sodium Chloride [Saline Nasal [place]] 2 spray NASBOTH BID PRN 03/11/19 [History] Spironolactone [Aldactone] 25 mg PO DAILY 03/11/19 [History] Warfarin [Coumadin] 2.5 mg PO MOWEFR 03/11/19 [History] Warfarin [Coumadin] 5 mg PO SUTUTHSA 03/11/19 [History] tiZANidine [Zanaflex] 2 mg PO TID PRN 03/11/19 [History] Past Medical History HEENT History: Reports: Cataract, Impaired Vision, Other (See Below) Other HEENT History: RT EYE IMPAIRED Cardiovascular History: Reports: Afib, Heart Failure, High Cholesterol, Hypertension, SOB on Exertion Respiratory History: Reports: Asthma, COPD, Pneumonia, Recurrent Other Respiratory History: States she had pneumonia twice last year. Gastrointestinal History: Reports: Cholelithiasis, Chronic Constipation, GERD, PUD Genitourinary History: Reports: Chronic Renal Insuffiency, Renal Disease Musculoskeletal History: Reports: Arthritis, Back Pain, Chronic, Fibromyalgia Neurological History: Reports: Neuropathy, Diabetic Psychiatric History: Reports: Anxiety, Depression Endocrine/Metabolic History: Reports: Diabetes, Type II, Obesity/BMI 30+ Other Endocrine/Metabolic History: Takes insulin. Hematologic History: Reports: Anemia, Anticoagulation Therapy (On Coumadin), B12 Deficiency - Past Surgical History HEENT Surgical History: Reports: Cataract Surgery Cardiovascular Surgical History: Reports: Cardiac Ablation, Vascular Surgery GI Surgical History: Reports: Cholecystectomy Female Surgical History: Reports: Hysterectomy, Salpingo-Oophorectomy, Tubal Ligation Neurological Surgical History: Reports: Lumbar Spine Musculoskeletal Surgical History: Reports: Knee Replacement (Right knee replacement), Shoulder Surgery (Right shoulder replacement) Social & Family History - Tobacco Use Smoking Status *Q: Never Smoker - Caffeine Use Caffeine Use: Reports: None - Alcohol Use Alcohol Use History: No Alcohol Use Comment: No alcohol use since she was young woman. - Living Situation & Occupation Living situation: Reports: , Assisted Living ED ROS GENERAL - Review of Systems Review Of Systems: See Below Constitutional: Reports: No Symptoms HEENT: Reports: No Symptoms Respiratory: Reports: Shortness of Breath Cardiovascular: Reports: Dyspnea on Exertion GI/Abdominal: Reports: No Symptoms : Reports: No Symptoms Musculoskeletal: Reports: Back Pain (Chronic), Other (Leg swelling bilaterally) Skin: Reports: No Symptoms Neurological: Reports: No Symptoms Hematologic/Lymphatic: Reports: Easy Bleeding (Chronically anticoagulated with Coumadin) Immunologic: Reports: No Symptoms ED EXAM, GENERAL - Physical Exam Exam: See Below Exam Limited By: No Limitations General Appearance: Alert, No Apparent Distress, Obese Eye Exam: Bilateral Eye: EOMI, Normal Inspection, PERRL Ears: Normal External Exam Nose: Normal Inspection, Normal Mucosa Throat/Mouth: Normal Inspection, Normal Oropharynx, Normal Voice, No Airway Compromise Head: Atraumatic, Normocephalic Neck: Normal Inspection, Supple, Non-Tender, Full Range of Motion Respiratory/Chest: No Respiratory Distress, No Accessory Muscle Use, Chest Non- Tender, Crackles (By basilar) Cardiovascular: Normal Peripheral Pulses, Regular Rate, Rhythm, Other (Her body habitus precludes accurate assessment of JVD.) Peripheral Pulses: 2+: Radial (L), Radial (R) GI/Abdominal: Normal Bowel Sounds, Soft, Non-Tender, Other (Protuberant) Extremities: Normal Range of Motion, Normal Capillary Refill, Pedal Edema Neurological: Alert, Oriented, CN II-XII Intact, Normal Cognition, No Motor/ Sensory Deficits Skin Exam: Warm, Dry, Intact, Normal Color, No Rash EKG INTERPRETATION EKG Date: 03/11/19 Time: 14:15 Rhythm: A-Fib Rate (Beats/Min): 67 [place]: RAD-Right [place]ling Deviation QRS: RBBB ST-T: Other (Nonspecific ST-T changes; poor R-wave progression) QT: Prolonged Comparison: No Change (No change from EKG performed on 07/28/2017) EKG Interpretation Comments: Atrial fibrillation with a controlled rate of 67. There is poor R-wave progression. There is a right bundle-branch block. There is a prolonged QTC. Course - Vital Signs Last Recorded V/S: Last Vital Signs Temp 36.8 C 03/11/19 13:00 Pulse 69 03/11/19 13:00 Resp 20 03/11/19 13:00 BP 145/69 H 03/11/19 13:00 Pulse Ox 95 03/11/19 13:00 - Orders/Labs/Meds Orders: Active Orders 24 hr Category Date Time Status Admission Status [Patient Status] [ADT] Routine ADT 03/11/19 15:20 Active Patient Status Manage Transfer [TRANSFER] Routine ADT 03/11/19 15:15 Active EKG Documentation Completion [RC] ASDIRECTED Care 03/11/19 13:31 Active Chest 2V [CR] Stat Exams 03/11/19 13:30 Taken Sodium Chloride 0.9% [Saline Flush] Med 03/11/19 13:30 Active 10 ml FLUSH ASDIRECTED PRN Peripheral IV Insertion Adult [OM.PC] Routine Oth 03/11/19 13:30 Ordered EKG 12 Lead [EK] Routine Ther 03/11/19 13:30 Ordered Medication Orders Sodium Chloride (Saline Flush) 10 ml FLUSH ASDIRECTED PRN PRN Reason: Keep Vein Open Last Admin: 03/11/19 15:05 Dose: 10 ml Labs: Laboratory Tests 03/11/19 03/11/19 03/11/19 Range/Units 13:40 13:40 13:40 WBC 7.8 (4.5-12.0) X10-3/uL RBC 4.23 (3.23-5.20) x10(6)uL Hgb 12.0 (11.5-15.5) g/dL Hct 37.4 (30.0-51.3) % MCV 88.2 (80-96) fL MCH 28.3 (27.7-33.6) pg MCHC 32.0 L (32.2-35.4) g/dL RDW 16.7 H (11.5-15.5) % Plt Count 234 (125-369) X10(3)uL MPV 8.3 (7.4-10.4) fL Neut % (Auto) 75.8 (46-82) % Lymph % (Auto) 14.5 (13-37) % [place] % (Auto) 7.4 (4-12) % Eos % (Auto) 2 (1.0-5.0) % Baso % (Auto) 0 (0-2) % Neut # (Auto) 6.0 (1.6-8.3) # Lymph # (Auto) 1.1 (0.6-5.0) # [place] # (Auto) 0.6 (0.0-1.3) # Eos # (Auto) 0.1 (0.0-0.8) # Baso # (Auto) 0.0 (0.0-0.2) # PT 36.4 H* (8.7-11.1) INR 3.80 H (0.89-1.13) Sodium 143 (135-145) mmol/L Potassium 4.1 (3.5-5.3) mmol/L Chloride 101 (100-110) mmol/L Carbon Dioxide 36 H (21-32) mmol/L BUN 49 H (7-18) mg/dL Creatinine 1.8 H (0.55-1.02) mg/dL Est Cr Clr Drug Dosing 19.10 mL/min Estimated GFR (MDRD) 27 L (>60) BUN/Creatinine Ratio 27.2 H (9-20) Glucose 213 H (80-116) mg/dL Calcium 10.1 (8.6-10.2) mg/dL Total Bilirubin 0.5 (0.1-1.3) mg/dL AST 19 (5-25) IU/L ALT 29 (12-36) U/L Alkaline Phosphatase 113 H (56-112) IU/L Troponin I (<0.017-0.056) ng/mL NT-Pro-B Natriuret Pep (<=450) pg/mL Total Protein 6.9 (6.0-8.0) g/dL Albumin 3.5 (3.2-4.6) g/dL Globulin 3.4 g/dL Albumin/Globulin Ratio 1.0 //19 Range/Units 13:40 WBC (4.5-12.0) X10-3/uL RBC (3.23-5.20) x10(6)uL Hgb (11.5-15.5) g/dL Hct (30.0-51.3) % MCV (80-96) fL MCH (27.7-33.6) pg MCHC (32.2-35.4) g/dL RDW (11.5-15.5) % Plt Count (125-369) X10(3)uL MPV (7.4-10.4) fL Neut % (Auto) (46-82) % Lymph % (Auto) (13-37) % [place] % (Auto) (4-12) % Eos % (Auto) (1.0-5.0) % Baso % (Auto) (0-2) % Neut # (Auto) (1.6-8.3) # Lymph # (Auto) (0.6-5.0) # [place] # (Auto) (0.0-1.3) # Eos # (Auto) (0.0-0.8) # Baso # (Auto) (0.0-0.2) # PT (8.7-11.1) INR (0.89-1.13) Sodium (135-145) mmol/L Potassium (3.5-5.3) mmol/L Chloride (100-110) mmol/L Carbon Dioxide (21-32) mmol/L BUN (7-18) mg/dL Creatinine (0.55-1.02) mg/dL Est Cr Clr Drug Dosing mL/min Estimated GFR (MDRD) (>60) BUN/Creatinine Ratio (9-20) Glucose (80-116) mg/dL Calcium (8.6-10.2) mg/dL Total Bilirubin (0.1-1.3) mg/dL AST (5-25) IU/L ALT (12-36) U/L Alkaline Phosphatase (56-112) IU/L Troponin I 0.061 H (<0.017-0.056) ng/mL NT-Pro-B Natriuret Pep 2359 H* (<=450) pg/mL Total Protein (6.0-8.0) g/dL Albumin (3.2-4.6) g/dL Globulin g/dL Albumin/Globulin Ratio Meds: Medications Generic Name Dose Route Start Last Admin Trade Name Freq PRN Reason Stop Dose Admin Sodium Chloride 10 ml 03/11/19 13:30 03/11/19 15:05 Saline Flush FLUSH 10 ml ASDIRECTED PRN Administration Keep Vein Open Discontinued Medications Generic Name Dose Route Start Last Admin Trade Name Shayna PRN Reason Stop Dose Admin Furosemide 40 mg 03/11/19 15:10 03/11/19 15:17 Lasix IVPUSH 03/11/19 15:11 40 mg NOW ONE Administration - Radiology Interpretation Free Text/Narrative:: Chest x-ray shows decompensated CHF. - Re-Assessments/Exams Free Text/Narrative Re-Assessment/Exam: 03/11/19 15:15: The patient's chest x-ray is consistent with decompensated CHF. Her proBNP is elevated. She has had acute worsening of her symptoms over the past 2 days with an 11 pound weight gain. Although she has no hypoxia, she does have respiratory distress that has been progressive. She is not responding to her oral diuretic medication. In the past, she has always required olvera with IV diuresis to treat these CHF exacerbations. I do not feel that the plan of care could be safely and effectively accomplished as an outpatient. Therefore, the patient will need admission. She will need at least a 2 midnight hospital stay to accomplish the plan of care. The patient is in agreement with the plan for admission. Therefore, I called Dr. Ledesma, hospitalist, and he will admit the patient. The patient was given Lasix 40 mg IV in the emergency department. Departure - Departure Time of Disposition: 15:20 Disposition: Admitted As Inpatient 68 Condition: Fair Clinical Impression: Acute decompensated heart failure, Respiratory distress, Anasarca, Supratherapeutic INR Chronic renal insufficiency Qualifiers: Chronic kidney disease stage: unspecified stage Qualified Code(s): N18.9 - Chronic kidney disease, unspecified - Discharge Information Forms: ED Department Discharge - My Orders Last 24 Hours: My Active Orders 03/11/19 13:30 Chest 2V [CR] Stat Sodium Chloride 0.9% [Saline Flush] 10 ml FLUSH ASDIRECTED PRN Peripheral IV Insertion Adult [OM.PC] Routine EKG 12 Lead [EK] Routine 03/11/19 13:31 EKG Documentation Completion [RC] ASDIRECTED 03/11/19 15:15 Patient Status Manage Transfer [TRANSFER] Routine 03/11/19 15:20 Admission Status [Patient Status] [ADT] Routine - Assessment/Plan Last 24 Hours: My Active Orders 03/11/19 13:30 Chest 2V [CR] Stat Sodium Chloride 0.9% [Saline Flush] 10 ml FLUSH ASDIRECTED PRN Peripheral IV Insertion Adult [OM.PC] Routine EKG 12 Lead [EK] Routine 03/11/19 13:31 EKG Documentation Completion [RC] ASDIRECTED 03/11/19 15:15 Patient Status Manage Transfer [TRANSFER] Routine 03/11/19 15:20 Admission Status [Patient Status] [ADT] Routine
[2019-03-11] MEDS: Sodium Chloride 0.9% 10 ML Syringe FLUSH PRN (15:05)
[2019-03-11] MEDS ORDERED: Furosemide 40 MG/4 ML VIAL IVPUSH ONE (15:10)
[2019-03-11] MEDS ORDERED: Sodium Chloride 0.9% 10 ML Syringe FLUSH PRN (17:38)
[2019-03-11] MEDS ORDERED: Acetaminophen 500 MG Tab PO PRN (17:47)
[2019-03-11] MEDS ORDERED: Sodium Chloride 0.65% Nasal Spray 45 ML Bottle NASBOTH PRN (17:47)
[2019-03-11] MEDS ORDERED: Metolazone 2.5 MG Tab PO ONE (18:00)
[2019-03-11] MEDS ORDERED: Insulin Lispro 100 Unit/ML 3 ML KwikPen SUBCUT SCH (18:00)
[2019-03-11] MEDS ORDERED: Insulin Lispro 100 Unit/ML 3 ML KwikPen SUBCUT ONE (18:19)
[2019-03-11] MEDS: Magnesium Oxide 400 MG Tab PO SCH (18:54)
[2019-03-11] MEDS: Acetaminophen 500 MG Tab PO SCH (18:54)
[2019-03-11] MEDS ORDERED: Mirtazapine 30 MG Tab PO SCH (21:00)
[2019-03-11] MEDS ORDERED: Insulin Glargine,Human Rec. Analog 100 Units/ML 3 ML Pen SUBCUT SCH (21:00)
[2019-03-11] MEDS ORDERED: tiZANidine 4 MG Tab PO PRN (21:00)
[2019-03-11] MEDS: Bisacodyl 5 MG Tab PO SCH (22:18)
[2019-03-11] MEDS: Albuterol/Ipratropium 3.0-0.5 MG/3 ML Neb Soln NEB SCH (22:18)
[2019-03-11] MEDS: Carvedilol 25 MG Tab PO SCH (22:18)
[2019-03-11] MEDS: Simvastatin 40 MG Tab PO SCH (22:19)
[2019-03-11] MEDS: Gabapentin 600 MG Tab PO SCH (22:19)
--- NOTE | 2019-03-12 01:04 | HP ---
ADMISSION DATE: 03/11/2019 CHIEF COMPLAINT: Shortness of breath and congestive heart failure. HISTORY OF PRESENT ILLNESS: Ms. Clark is a 78-year-old woman from [place], [place], with a history of chronic atrial fibrillation, status post ablation and chronic anticoagulation; chronic congestive heart failure; chronic kidney disease; type 2 diabetes; chronic peripheral neuropathy; and obesity. 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 Clifford, who found her to be volume overloaded. He recommended additional diuresis, and she asked to come to the hospital for evaluation and admission. She saw Dr. Montoya in the ER, who evaluated her, and now has sent her to the acute floor for admission. The patient states she has been more short of breath. She has been having some leg swelling, but mostly she says she gets abdominal swelling with her fluid retention. She has had prior episodes of similar cardiac decompensation requiring admission for diuretic therapy. She is not having chest pain, palpitations, abdominal pain, fever, chills, or symptoms of systemic infection. PAST MEDICAL HISTORY: Extensive and includes coronary artery disease with angioplasty approximately 15 years ago. She has had chronic atrial fibrillation and describes an ablation procedure that she went through, and she is on chronic anticoagulation for atrial fibrillation. She has chronic kidney disease, type 2 diabetes, asthma since childhood, and chronic back pain. 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 She is status post lumbar spine surgery with kenna placement, bladder repair x2 for incontinence surgery, and rectal prolapse surgery x2. She is status post right TKA; right total shoulder arthroplasty; cholecystectomy; appendectomy; and bunionectomy, left foot with subsequent nerve surgery and hardware removal. She has had bilateral cataract surgery. She has a history of chronic pain syndrome. She has had 2 epidural back injections in the past several months that have not helped. She has had a history of DVT, fibromyalgia, esophageal reflux, gout, anxiety, peripheral neuropathy, trigger finger surgery on the left, and pernicious anemia. MEDICATIONS: 1. Aldactone 25 mg daily. 2. Saline nasal spray 2 sprays each nostril b.i.d. 3. Sitagliptin 50 mg daily. 4. Simvastatin 80 mg daily. 5. Mirtazapine 15 mg at bedtime. 6. Savella 50 mg b.i.d. 7. Mag-Ox 400 mg b.i.d. 8. Isosorbide mononitrate 30 mg daily. 9. Levemir 34 units a.m., 48 units p.m. 10.NovoLog 20 units a.m., 24 units noon, and 25 units p.m. 11.Gabapentin 600 mg b.i.d. and 300 mg at noon daily. 12.Zetia 10 mg daily. 13.Docusate 100 mg daily. 14.Carvedilol 25 mg b.i.d. 15.Bumex 2 mg b.i.d. 16.Dulcolax 15 mg at bedtime. 17.Aspirin 81 mg daily. 18.Allopurinol 100 mg daily. 19.Tylenol 500 mg t.i.d. and 1000 mg b.i.d. 20.Warfarin 2.5 mg Saturday, Saturday, Saturday and 5 mg Saturday, , Saturday, Saturday. 21.Vitamin B12, 1000 mcg IM monthly. 22.Zanaflex 2 mg t.i.d. 23.MiraLax 17 g daily. 24.Nitroglycerin sublingual p.r.n. 25.Digoxin 0.125 mg every 48 hours. 26.Bumex 0.5 mg daily p.r.n. 27.DuoNebs q.4 hours p.r.n. ALLERGIES: Listed oxycodone, penicillin, phenylephrine, and tropicamide. HABITS: Nonsmoker. Nondrinker. FAMILY AND SOCIAL HISTORY: The patient was 2 years ago after 59 years of marriage. She has 3 children, 1 son in [place] and 2 daughters in the area. She grew up in [place], [place], and has lived in [place] until moving into [facility] where she currently resides. REVIEW OF SYSTEMS: GENERAL: No seizure or syncope. She has had a weight gain of approximately 16 pounds over the past month. HEENT: No recent changes in the hearing or vision. She reports blindness in the right eye and a previous cataract surgery that improved vision on the left eye. No sore throat or URI. No cough or purulent sputum. CHEST: No chest pain or palpitations. GASTROINTESTINAL: No abdominal pain, nausea, or diarrhea. MUSCULOSKELETAL: No joint inflammation or swelling. She does report chronic back pain. SKIN: No skin rash or temperature intolerance. PHYSICAL EXAMINATION: GENERAL: She is alert and good historian. VITAL SIGNS: Blood pressure 138/67, pulse 60 and regular, respirations 18, O2 saturation 96% on room air, temperature 98.1, weight 238 pounds. SKIN: Anicteric, warm, dry. No rash is noted, but she has 5 to 6, 3 to 4 cm areas of ecchymoses on her back where she said she fell back and hit her back on furniture. HEENT: Shows clear TMs. Pupils are equal with evidence of IOLs in place. Oropharynx clear, mouth dry. LUNGS: Clear in the upper lung contreras. She does have fine rales in both bases and slightly distant breath sounds. HEART: Regular. No murmur or gallop heard. ABDOMEN: Obese, soft, nontender. No masses. No specific fluid wave is palpable. EXTREMITIES: Warm, well perfused. She has 1+ pitting edema to both ankles. She has evidence of healed bunion surgery on the left and a current bunion on the right. Dorsalis pedis pulses are strong bilaterally. LABORATORY DATA: White count 7800, hemoglobin 12, MCV 88. INR 3.8. BUN 49, creatinine 1.8. Glucose 213. BNP 2359. Chest x-ray shows marked cardiomegaly and evidence of CHF. ASSESSMENT: A 78-year-old woman with, 1. Exacerbation of chronic congestive heart failure. 2. Chronic atrial fibrillation, status post ablation-type procedure. 3. History of deep vein thrombosis, on long-term anticoagulation. 4. Chronic kidney disease, stage 3. 5. Type 2 diabetes. 6. Chronic low back pain with history of multiple surgeries, injections, etc. 7. History of gout. 8. Chronic peripheral neuropathy, likely diabetic. 9. Hyperlipidemia. 10.Coronary artery disease, status post angioplasty. 11.Chronic pain syndrome, on Savella. PLAN: She is admitted to acute care. We will pursue additional diuresis and plan for a goal weight of around 222 pounds. We will continue her other current active medications as indicated. I anticipate a 48-to 72-hour acute hospital stay followed by discharge to return to [facility] when improved. /[id number] RO/MODL
[2019-03-12] MEDS: Albuterol/Ipratropium 3.0-0.5 MG/3 ML Neb Soln NEB SCH ×3 (06:49→21:15)
[2019-03-12] MEDS ORDERED: Bumetanide 1 MG Tab PO SCH ×2 (08:00)
[2019-03-12] MEDS ORDERED: Insulin Lispro 100 Unit/ML 3 ML KwikPen SUBCUT SCH ×3 (08:00→18:00)
[2019-03-12] MEDS ORDERED: Insulin Glargine,Human Rec. Analog 100 Units/ML 3 ML Pen SUBCUT SCH ×2 (08:03→09:00)
[2019-03-12] MEDS ORDERED: Metolazone 2.5 MG Tab PO ONE (08:13)
[2019-03-12] MEDS ORDERED: Metolazone 5 MG Tab PO ONE (08:13)
[2019-03-12] MEDS ORDERED: Furosemide 100 MG/10 ML SDV IVPUSH ONE (08:15)
[2019-03-12] MEDS ORDERED: Digoxin 125 MCG Tab PO SCH (09:00)
[2019-03-12] MEDS: Sodium Chloride 0.9% 10 ML Syringe FLUSH PRN (09:32)
[2019-03-12] MEDS: Bumetanide 2 MG Tab PO SCH ×2 (09:34→12:06)
[2019-03-12] MEDS: Docusate Sodium 100 MG Cap PO SCH (09:34)
[2019-03-12] MEDS: Ezetimibe 10 MG Tab PO SCH (09:34)
[2019-03-12] MEDS: Isosorbide Mononitrate 30 MG Tab.ER PO SCH (09:35)
[2019-03-12] MEDS: Aspirin 81 MG Tab.Chew PO SCH (09:35)
[2019-03-12] MEDS: Acetaminophen 500 MG Tab PO SCH ×3 (09:35→17:58)
[2019-03-12] MEDS: Allopurinol 100 MG Tab PO SCH (09:35)
[2019-03-12] MEDS: Magnesium Oxide 400 MG Tab PO SCH ×2 (09:36→17:58)
[2019-03-12] MEDS: Carvedilol 25 MG Tab PO SCH ×2 (09:36→21:29)
[2019-03-12] MEDS: Spironolactone 25 MG Tab PO SCH (09:37)
[2019-03-12] MEDS: Gabapentin 600 MG Tab PO SCH ×2 (09:43→21:16)
--- NOTE | 2019-03-12 11:09 | CR ---
INDICATION: Short of breath. CHEST: PA and lateral views of the chest, 03/11/19, were compared with and 08/01/17 and revealed an appearance of increasing heart size with prominent congested upper lung field pulmonary vasculature and interstitial changes compatible with CHF with interstitial lung edema. Minimal alveolar lung edema could also be present in a patchy fashion, if COPD is present especially. The possibility of superimposed pneumonia would also be a consideration in the mid to lower lung contreras, especially on the left. A mild dextroconvex scoliosis of the thoracic spine is noted with bridging hyperostotic changes in the mid to lower levels. No gross consolidating pneumonia or effusion was seen. IMPRESSION: Findings are felt to be most compatible with ASHD, cardiomegaly, CHF, and interstitial lung edema. The possibility of superimposed patchy pneumonia or possibly unusual acute pulmonary edema would also be considerations. MTDD
[2019-03-12] MEDS ORDERED: Gabapentin 300 MG Cap PO SCH (12:00)
[2019-03-12] MEDS: tiZANidine 4 MG Tab PO SCH ×2 (14:36→21:31)
--- NOTE | 2019-03-12 15:00 | PN ---
DATE SEEN: 03/12/2019 HISTORY OF PRESENT ILLNESS: Marion is a 78-year-old woman from [place], [place], with a history of chronic congestive heart failure, chronic atrial fibrillation, history of DVT, chronic kidney disease, type 2 diabetes, chronic peripheral neuropathy, chronic pain syndrome with history of coronary artery disease, status post angioplasty. She was admitted because of increasing dyspnea, weight gain, and exacerbation of congestive heart failure. On admission yesterday, her weight was 238 pounds with a typical dry weight of around 220. She was given IV Lasix. Her oral Bumex was increased to 4 mg b.i.d. She was given a dose of metolazone last night and again this morning and repeat IV dose of Lasix. She has been urinating frequently. She states her breathing is improved. PHYSICAL EXAMINATION: GENERAL: She is alert and comfortable. She is a good historian. VITAL SIGNS: Blood pressure 139/65, pulse 69 and irregular, respirations 20, O2 saturation 89% on 2 L nasal cannula, temperature 98.7. SKIN: Clear, except for scattered ecchymoses on her back from a fall. HEENT: Shows her mouth to be dry. LUNGS: Have fine rales at both bases, but good air movement bilaterally. HEART: Slightly irregular. No murmurs heard. ABDOMEN: Obese, soft, nontender. Slight hepatomegaly is palpable. EXTREMITIES: Show 1+ edema to the mid tibias. LABORATORY DATA: White count 6,500, hemoglobin 11.5. INR 3.38, potassium 4.1, BUN 47, creatinine 1.8, digoxin level 0.5, and glucose 335. ASSESSMENT: 1. Congestive heart failure with exacerbation. 2. Type 2 diabetes. 3. Chronic atrial fibrillation. 4. History of deep venous thrombosis. 5. Chronic anticoagulation. 6. Chronic peripheral neuropathy. PLAN: We will continue to diurese her. We will work on blood sugar control. Increase activity and anticipate another 24 to 48 hours of acute care hospitalization, followed by return to home. /[id number] RAYNA/ALAYNAL
[2019-03-12] MEDS ORDERED: Mirtazapine 15 MG Tab PO SCH (21:00)
[2019-03-12] MEDS: Simvastatin 40 MG Tab PO SCH (21:13)
[2019-03-12] MEDS: Bisacodyl 5 MG Tab PO SCH (21:14)
[2019-03-13] MEDS: Albuterol/Ipratropium 3.0-0.5 MG/3 ML Neb Soln NEB SCH (07:00)
[2019-03-13] MEDS: Bumetanide 2 MG Tab PO SCH ×2 (07:55→11:21)
[2019-03-13] MEDS: Magnesium Oxide 400 MG Tab PO SCH (07:57)
[2019-03-13] MEDS: Acetaminophen 500 MG Tab PO SCH ×2 (07:58→11:21)
[2019-03-13] MEDS: tiZANidine 4 MG Tab PO SCH ×2 (07:58→11:21)
[2019-03-13] MEDS: Spironolactone 25 MG Tab PO SCH (07:59)
[2019-03-13] MEDS ORDERED: Insulin Lispro 100 Unit/ML 3 ML KwikPen SUBCUT SCH (08:00)
[2019-03-13] MEDS: Aspirin 81 MG Tab.Chew PO SCH (08:00)
[2019-03-13] MEDS: Docusate Sodium 100 MG Cap PO SCH (08:01)
[2019-03-13] MEDS: Carvedilol 25 MG Tab PO SCH (08:01)
[2019-03-13] MEDS: Isosorbide Mononitrate 30 MG Tab.ER PO SCH (08:01)
[2019-03-13] MEDS: Allopurinol 100 MG Tab PO SCH (08:03)
[2019-03-13] MEDS: Ezetimibe 10 MG Tab PO SCH (08:03)
[2019-03-13 08:10] VITALS: BP 123/60
[2019-03-13] MEDS ORDERED: Insulin Glargine,Human Rec. Analog 100 Units/ML 3 ML Pen SUBCUT SCH (09:00)
[2019-03-13] MEDS: Gabapentin 600 MG Tab PO SCH (09:14)
--- NOTE | 2019-03-13 11:36 | PN ---
DATE SEEN: 03/13/2019 CHIEF COMPLAINT: Shortness of breath. HISTORY OF PRESENT ILLNESS: This is a 78-year-old female admitted 2 days ago with shortness of breath. She has a history of CHF, CAD, atrial fibrillation, and type 2 diabetes. She feels better today and would like to go home. She lives at [facility]. REVIEW OF SYSTEMS: No chest pain. No headaches, nausea, or vomiting. ALLERGIES: Reviewed. PHYSICAL EXAMINATION: VITAL SIGNS: Her blood pressure today is 123/60, pulse is 65, and oxygenation 93% on room air. ENT: Normal. NECK: Supple. CARDIOVASCULAR: Normal. CHEST: Clear. EXTREMITIES: Trace edema. LABORATORY DATA: No new labs today except of INR which is 2.3. IMPRESSION: 1. Congestive heart failure exacerbation. 2. Atrial fibrillation. 3. History of coronary artery disease. 4. Type 2 diabetes. 5. Obesity. PLAN: My plan is to discharge her home today to [facility] on oral diuretics. She will follow up next week. /[id number] DINESH/STEWART
--- NOTE | 2019-03-14 03:27 | DISCH ---
DISCHARGE DATE: 03/13/2019 REASON FOR ADMISSION: 1. Congestive heart failure exacerbation. 2. Coronary artery disease. 3. Obesity. 4. Atrial fibrillation. 5. Type 2 diabetes. CONSULTATIONS: None. BRIEF HISTORY AND HOSPITAL COURSE: This is a 78-year-old female, admitted on the because of CHF exacerbation. She was given 40 mg IV Lasix b.i.d., improved with diuresis and feels better to go home today and would be discharged home. The only change that has been made is an increased dose of Bumex to 4 mg b.i.d. She will also continue home dose of Aldactone 25 mg daily and Coumadin. She is short of breath on moderate ambulation, and because of needing to check with INR, she will need Home Health to follow up medications, blood pressure, and I would like her seen by physician next week on Saturday. Please note that I spent more than 35 minutes in the discharge of the patient. /[id number] DINESH/STEWART
== END 2019-03-13 11:40 | disposition home health service (06) | DRG 292 ==
LOC: FB.ED 12:58 → FB.MS 15:15
PROVIDERS: ADMIT Family Medicine; ATTEND Family Medicine
DX: I13.0 Hypertensive heart and chronic kidney disease with heart failure and stage 1 through stage 4 chronic kidney disease, or unspecified chronic kidney disease (principal); Z68.44 Body mass index [BMI] 60.0-69.9, adult; I50.9 Heart failure, unspecified; N18.3 Chronic kidney disease, stage 3 (moderate); E11.22 Type 2 diabetes mellitus with diabetic chronic kidney disease; E11.42 Type 2 diabetes mellitus with diabetic polyneuropathy; I48.2 Chronic atrial fibrillation; J44.9 Chronic obstructive pulmonary disease, unspecified; R06.03 Acute respiratory distress; R79.1 Abnormal coagulation profile; R60.1 Generalized edema; I25.10 Atherosclerotic heart disease of native coronary artery without angina pectoris; Z86.718 Personal history of other venous thrombosis and embolism; Z79.4 Long term (current) use of insulin; R06.02 Shortness of breath; Z79.01 Long term (current) use of anticoagulants; H35.50 Unspecified hereditary retinal dystrophy; H54.61 Unqualified visual loss, right eye, normal vision left eye; E66.9 Obesity, unspecified; H54.7 Unspecified visual loss; Z87.01 Personal history of pneumonia (recurrent); E78.5 Hyperlipidemia, unspecified; K59.09 Other constipation; K21.9 Gastro-esophageal reflux disease without esophagitis; M19.90 Unspecified osteoarthritis, unspecified site; M79.7 Fibromyalgia; G89.4 Chronic pain syndrome; M54.9 Dorsalgia, unspecified; F41.9 Anxiety disorder, unspecified; F32.9 Major depressive disorder, single episode, unspecified; D51.0 Vitamin B12 deficiency anemia due to intrinsic factor deficiency; M10.9 Gout, unspecified; Z79.899 Other long term (current) drug therapy; Z88.5 Allergy status to narcotic agent; Z88.0 Allergy status to penicillin; Z88.8 Allergy status to other drugs, medicaments and biological substances; Z90.49 Acquired absence of other specified parts of digestive tract; Z90.710 Acquired absence of both cervix and uterus; Z90.79 Acquired absence of other genital organ(s); Z90.722 Acquired absence of ovaries, bilateral; Z96.651 Presence of right artificial knee joint; Z96.611 Presence of right artificial shoulder joint
CPT/HCPCS: 36415; 71046; 80048; 80053; 80162; 82962; 83735; 83880; 84484; 85025; 85610; 93005; 94640; 96374; 99285-25; A9270-GY; J1815; J1815-GY; J1940; J7620-GY

== ENCOUNTER 2019-03-16 13:35 | Emergency (ER) | payer MEDICARE, MEDICAID ==
[2019-03-16] MEDS ORDERED: Cephalexin 500 MG Cap PO ONE (13:36)
[2019-03-16 14:02] VITALS: BP 108/66
[2019-03-16] MEDS ORDERED: Insulin Regular, Human 100 Units/ML 3 ML Vial IV ONE (14:02)
[2019-03-16] MEDS ORDERED: cefTRIAXone 1 GM in Sodium Chloride 0.9% 50 ML IV ONE (14:09)
--- NOTE | 2019-03-16 14:12 | EDM.PDOC ---
ED HPI GENERAL MEDICAL PROBLEM - General Chief Complaint: Diabetic Complaint Stated Complaint: ARM INFECTION Time Seen by Provider: 03/16/19 14:09 Source of Information: Reports: Patient History Limitations: Reports: No Limitations - History of Present Illness INITIAL COMMENTS - FREE TEXT/NARRATIVE: Marion complains of Left forearm pain and redness.Started 3 days ago. Trivial trauma last week. no fever. Has also noted high accu checks ,>4-500. Has Type 2 DM,afib,HTN,obesity,all stable. - Related Data Allergies Allergy/AdvReac Type Severity Reaction Status Date / Time oxycodone [Oxycodone] Allergy Hives Verified 03/16/19 13:45 Penicillins Allergy Hives Verified 03/16/19 13:45 phenylephrine Allergy Cannot Verified 03/16/19 13:45 Remember tropicamide Allergy Hives Verified 03/16/19 13:45 Home Meds: Home Meds Acetaminophen [Acetaminophen Extra Strength] 1,000 mg PO BID PRN 03/03/14 [ History] Allopurinol [Zyloprim] 100 mg PO DAILY 03/03/14 [History] Cyanocobalamin (Vitamin B12) [Vitamin B12] 1,000 mcg IM Q30D 03/03/14 [History] Ezetimibe [Zetia] 10 mg PO DAILY 03/03/14 [History] Milnacipran [Savella] 50 mg PO BID 03/03/14 [History] Omeprazole 20 mg PO Q48H 03/03/14 [History] Simvastatin 80 mg PO BEDTIME 03/03/14 [History] SitaGLIPtin [Januvia] 50 mg PO DAILY 03/03/14 [History] Mirtazapine [Remeron] 15 mg PO BEDTIME 05/19/14 [History] Nitroglycerin [Nitrostat] 0.4 mg SL Q5M PRN 05/19/14 [History] Carvedilol [Coreg] 25 mg PO BID 12/28/14 [History] Docusate Sodium 100 mg PO DAILY 02/10/16 [History] Digoxin 125 mcg PO Q48H 02/20/17 [History] Isosorbide Mononitrate [Imdur] 30 mg PO DAILY 02/20/17 [History] Bisacodyl [Dulcolax] 15 mg PO BEDTIME 07/28/17 [History] Albuterol/Ipratropium [DuoNeb 3.0-0.5 MG/3 ML] 3 ml INH Q4H PRN #90 ml 08/13/17 [Rx] Acetaminophen [Tylenol Extra Strength] 500 mg PO TIDMEALS 03/11/19 [History] Aspirin 81 mg PO DAILY 03/11/19 [History] Bumetanide 0.5 mg PO ASDIRECTED PRN 03/11/19 [History] Cholecalciferol (Vitamin D3) [Vitamin D3] 2,000 units PO DAILY 03/11/19 [History ] Gabapentin [Neurontin] 300 mg PO DAILY@1200 03/11/19 [History] Gabapentin [Neurontin] 600 mg PO BID 03/11/19 [History] Insulin Aspart [NovoLOG] 20 units SUBCUT WITHLUNCH 03/11/19 [History] Insulin Aspart [NovoLOG] 24 units SUBCUT WITHDINNER 03/11/19 [History] Insulin Aspart [NovoLOG] 25 unit SQ WITHBREAKFAST 03/11/19 [History] Insulin Detemir [Levemir Flextouch] 34 units SUBCUT DAILY 03/11/19 [History] Insulin Detemir [Levemir Flextouch] 48 units SUBCUT BEDTIME 03/11/19 [History] Magnesium Oxide 400 mg PO BIDMEALS 03/11/19 [History] Polyethylene Glycol 3350 [MiraLAX] 17 gm PO DAILY PRN 03/11/19 [History] Sodium Chloride [Saline Nasal [place]] 2 spray NASBOTH BID PRN 03/11/19 [History] Spironolactone [Aldactone] 25 mg PO DAILY 03/11/19 [History] Warfarin [Coumadin] 2.5 mg PO MOWEFR 03/11/19 [History] Warfarin [Coumadin] 5 mg PO SUTUTHSA 03/11/19 [History] tiZANidine [Zanaflex] 2 mg PO TID PRN 03/11/19 [History] Bumetanide [Bumex] 4 mg PO BID@0800,1200 #60 tablet 03/13/19 [Rx] Past Medical History - Past Health History Medical/Surgical History: Denies Medical/Surgical History HEENT History: Reports: Cataract, Impaired Vision, Other (See Below) Other HEENT History: RT EYE IMPAIRED Cardiovascular History: Reports: Afib, Heart Failure, High Cholesterol, Hypertension, SOB on Exertion Respiratory History: Reports: Asthma, COPD, Pneumonia, Recurrent Other Respiratory History: States she had pneumonia twice last year. 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 Hematologic History: Reports: Anemia, Anticoagulation Therapy, B12 Deficiency - Past Surgical History HEENT Surgical History: Reports: Cataract Surgery Cardiovascular Surgical History: Reports: Cardiac Ablation, Vascular Surgery GI Surgical History: Reports: Cholecystectomy Female Surgical History: Reports: Hysterectomy, Salpingo-Oophorectomy, Tubal Ligation Neurological Surgical History: Reports: Lumbar Spine Musculoskeletal Surgical History: Reports: Knee Replacement, Shoulder Surgery Dermatological Surgical History: Reports: Other (See Below) Social & Family History - Family History Family Medical History: Noncontributory - Tobacco Use Smoking Status *Q: Never Smoker Second Hand Smoke Exposure: No - Caffeine Use Caffeine Use: Reports: Tea Caffeine Use Comment: Diet Mt Dew - Recreational Drug Use Recreational Drug Use: No - Living Situation & Occupation Living situation: Reports: , Assisted Living ED ROS GENERAL - Review of Systems Review Of Systems: ROS reveals no pertinent complaints other than HPI. ED EXAM GENERAL NO PERIP PULSE - Physical Exam Exam: See Below Exam Limited By: No Limitations General Appearance: Alert, WD/WN Extremities: Increased Warmth, Redness, Other (Left forearm warm,tender , extensor aspect) Neurological: Alert, Oriented Psychiatric: Normal Affect Course - Vital Signs Last Recorded V/S: Last Vital Signs Temp 98.4 F 03/16/19 13:40 Pulse 75 03/16/19 13:40 Resp 18 03/16/19 13:40 BP 108/66 03/16/19 13:40 Pulse Ox 94 L 03/16/19 13:40 - Orders/Labs/Meds Orders: Active Orders 24 hr Category Date Time Status CBC WITH AUTO DIFF [HEME] AM Lab 03/17/19 05:11 Ordered COMPREHENSIVE METABOLIC PN,CMP [CHEM] AM Lab 03/17/19 05:11 Ordered Sodium Chloride 0.9% [Normal Saline] 1,000 ml Med 03/16/19 14:15 Active IV ASDIRECTED Medication Orders Sodium Chloride (Normal Saline) 1,000 mls @ 500 mls/hr IV ASDIRECTED JESUS Last Admin: 03/16/19 14:25 Dose: 500 mls/hr Labs: Laboratory Tests 03/16/19 Range/Units 14:06 C-Reactive Protein 4.7 H* (0.5-0.9) mg/dL Meds: Medications Generic Name Dose Route Start Last Admin Trade Name Freq PRN Reason Stop Dose Admin Sodium Chloride 1,000 mls @ 500 mls/hr 03/16/19 14:15 03/16/19 14:25 Normal Saline IV 500 mls/hr ASDIRECTED JESUS Administration Discontinued Medications Generic Name Dose Route Start Last Admin Trade Name Freq PRN Reason Stop Dose Admin Ceftriaxone Sodium 1 gm/ 50 mls @ 200 mls/hr 03/16/19 14:09 03/16/19 14:26 Sodium Chloride IV 03/16/19 14:23 200 mls/hr ONETIME ONE Administration Insulin Human Regular 10 unit 03/16/19 14:02 03/16/19 14:26 Humulin R IV 03/16/19 14:03 10 units ONETIME ONE Administration Departure - Departure Time of Disposition: 15:13 Disposition: Home, Self-Care 01 Condition: Good Clinical Impression: Hyperglycemia - Discharge Information Referrals: Guru Tucker MD [Primary Care Provider] - Forms: ED Department Discharge - Problem List & Annotations (1) Cellulitis SNOMED Code(s): 092806845 Code(s): L03.90 - CELLULITIS, UNSPECIFIED Status: Acute Current Visit: Yes (2) Diabetes type 2, controlled SNOMED Code(s): 04432111, 936133043 Code(s): E11.9 - TYPE 2 DIABETES MELLITUS WITHOUT COMPLICATIONS Status: Acute Current Visit: No - Problem List Review Problem List Initiated/Reviewed/Updated: Yes - My Orders Last 24 Hours: My Active Orders 03/16/19 14:15 Sodium Chloride 0.9% [Normal Saline] 1,000 ml IV ASDIRECTED 03/17/19 05:11 CBC WITH AUTO DIFF [HEME] AM COMPREHENSIVE METABOLIC PN,CMP [CHEM] AM - Assessment/Plan Last 24 Hours: My Active Orders 03/16/19 14:15 Sodium Chloride 0.9% [Normal Saline] 1,000 ml IV ASDIRECTED 03/17/19 05:11 CBC WITH AUTO DIFF [HEME] AM COMPREHENSIVE METABOLIC PN,CMP [CHEM] AM Plan: Given 500 cc of NS.and 10 units of regular insulin. 1 G Rocephin.DC home on Cephalexin.
[2019-03-16] MEDS ORDERED: Sodium Chloride 0.9% 1,000 ML IV SCH (14:15)
== END 2019-03-16 16:05 | disposition home or self-care (01) ==
LOC: FB.ED 13:35
DX: E11.65 Type 2 diabetes mellitus with hyperglycemia (principal); L03.114 Cellulitis of left upper limb; I48.91 Unspecified atrial fibrillation; E78.00 Pure hypercholesterolemia, unspecified; I13.0 Hypertensive heart and chronic kidney disease with heart failure and stage 1 through stage 4 chronic kidney disease, or unspecified chronic kidney disease; I50.9 Heart failure, unspecified; N18.9 Chronic kidney disease, unspecified; E11.40 Type 2 diabetes mellitus with diabetic neuropathy, unspecified; J44.9 Chronic obstructive pulmonary disease, unspecified; Z88.5 Allergy status to narcotic agent; Z88.8 Allergy status to other drugs, medicaments and biological substances; Z79.899 Other long term (current) drug therapy; Z79.84 Long term (current) use of oral hypoglycemic drugs
CPT/HCPCS: 36415; 82962; 86140; 96361; 96372; 96374; 99285; A9270; J0696; J1815; J7030; J7050

== ENCOUNTER 2019-06-28 11:11 | Emergency (ER) | payer MEDICARE, MEDICAID ==
--- NOTE | 2019-06-28 11:21 | EDM.PDOC ---
ED HPI GENERAL MEDICAL PROBLEM - General Stated Complaint: sob Time Seen by Provider: 06/28/19 11:11 Source of Information: Reports: Patient History Limitations: Reports: No Limitations - History of Present Illness INITIAL COMMENTS - FREE TEXT/NARRATIVE: 79-year-old female who reports 4 days ago began to have increased swelling and some difficulty breathing. These have both progressively worsened with time. She states she is usually on oxygen at night but has had 2 use her oxygen 24/7 for the past 3 days. This morning she reports that her shortness of breath was much worse and was not helped even with the oxygen. She also noted that her abdomen and her legs are much more swollen. She called her daughter and EMS was called. EMS arrived and found the patient to be at 70% O2 saturation on 3 L/m via nasal cannula and she was somewhat lethargic. The patient was placed on 100 % nonrebreather and her O2 saturations of follow-up to the 100% range and she is more awake and able to converse. She denies any chest pain. In fact, she denies any pain anywhere. She would rate her pain as a 0/10. No nausea or vomiting. She has had decreased by mouth intake for the past few days. She is able to speak in 3-4 were sentences. There are no other associated signs or symptoms. There are no other modifying factors. Onset: Other (4 days ago and much worse this morning) Duration: Getting Worse Location: Reports: Other (Patient denies pain. 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 - Related Data Allergies Allergy/AdvReac Type Severity Reaction Status Date / Time oxycodone [Oxycodone] Allergy Hives Verified 03/16/19 13:45 Penicillins Allergy Hives Verified 03/16/19 13:45 phenylephrine Allergy Cannot Verified 03/16/19 13:45 Remember tropicamide Allergy Hives Verified 03/16/19 13:45 Home Meds: Home Meds Acetaminophen [Acetaminophen Extra Strength] 1,000 mg PO BID PRN 03/03/14 [ History] Allopurinol [Zyloprim] 100 mg PO DAILY 03/03/14 [History] Cyanocobalamin (Vitamin B12) [Vitamin B12] 1,000 mcg IM Q30D 03/03/14 [History] Ezetimibe [Zetia] 10 mg PO DAILY 03/03/14 [History] Milnacipran [Savella] 50 mg PO BID 03/03/14 [History] Omeprazole 20 mg PO Q48H 03/03/14 [History] Simvastatin 80 mg PO BEDTIME 03/03/14 [History] SitaGLIPtin [Januvia] 50 mg PO DAILY 03/03/14 [History] Mirtazapine [Remeron] 15 mg PO BEDTIME 05/19/14 [History] Nitroglycerin [Nitrostat] 0.4 mg SL Q5M PRN 05/19/14 [History] Carvedilol [Coreg] 25 mg PO BID 12/28/14 [History] Docusate Sodium 100 mg PO DAILY 02/10/16 [History] Digoxin 125 mcg PO Q48H 02/20/17 [History] Isosorbide Mononitrate [Imdur] 30 mg PO DAILY 02/20/17 [History] Bisacodyl [Dulcolax] 15 mg PO BEDTIME 07/28/17 [History] Albuterol/Ipratropium [DuoNeb 3.0-0.5 MG/3 ML] 3 ml INH Q4H PRN #90 ml 08/13/17 [Rx] Acetaminophen [Tylenol Extra Strength] 500 mg PO TIDMEALS 03/11/19 [History] Aspirin 81 mg PO DAILY 03/11/19 [History] Bumetanide 0.5 mg PO ASDIRECTED PRN 03/11/19 [History] Cholecalciferol (Vitamin D3) [Vitamin D3] 2,000 units PO DAILY 03/11/19 [History ] Gabapentin [Neurontin] 300 mg PO DAILY@1200 03/11/19 [History] Gabapentin [Neurontin] 600 mg PO BID 03/11/19 [History] Insulin Aspart [NovoLOG] 20 units SUBCUT WITHLUNCH 03/11/19 [History] Insulin Aspart [NovoLOG] 24 units SUBCUT WITHDINNER 03/11/19 [History] Insulin Aspart [NovoLOG] 25 unit SQ WITHBREAKFAST 03/11/19 [History] Insulin Detemir [Levemir Flextouch] 34 units SUBCUT DAILY 03/11/19 [History] Insulin Detemir [Levemir Flextouch] 48 units SUBCUT BEDTIME 03/11/19 [History] Magnesium Oxide 400 mg PO BIDMEALS 03/11/19 [History] Polyethylene Glycol 3350 [MiraLAX] 17 gm PO DAILY PRN 03/11/19 [History] Sodium Chloride [Saline Nasal [place]] 2 spray NASBOTH BID PRN 03/11/19 [History] Spironolactone [Aldactone] 25 mg PO DAILY 03/11/19 [History] Warfarin [Coumadin] 2.5 mg PO MOWEFR 03/11/19 [History] Warfarin [Coumadin] 5 mg PO SUTUTHSA 03/11/19 [History] tiZANidine [Zanaflex] 2 mg PO TID PRN 03/11/19 [History] Bumetanide [Bumex] 4 mg PO BID@0800,1200 #60 tablet 03/13/19 [Rx] Cephalexin [Keflex] 500 mg PO TID 7 Days #20 capsule 03/16/19 [Rx] Past Medical History HEENT History: Reports: Cataract, Impaired Vision, Other (See Below) Other HEENT History: RT EYE IMPAIRED Cardiovascular History: Reports: Afib, Heart Failure, High Cholesterol, Hypertension, SOB on Exertion Respiratory History: Reports: Asthma, COPD, Pneumonia, Recurrent Gastrointestinal History: Reports: Cholelithiasis, Chronic Constipation, GERD, PUD Genitourinary History: Reports: Chronic Renal Insuffiency, Renal Disease Musculoskeletal History: Reports: Arthritis, Back Pain, Chronic, Fibromyalgia Neurological History: Reports: Neuropathy, Diabetic Psychiatric History: Reports: Anxiety, Depression Endocrine/Metabolic History: Reports: Diabetes, Type II, Obesity/BMI 30+ Other Endocrine/Metabolic History: Takes insulin. Hematologic History: Reports: Anemia, Anticoagulation Therapy (On Coumadin), B12 Deficiency - Past Surgical History HEENT Surgical History: Reports: Cataract Surgery Cardiovascular Surgical History: Reports: Cardiac Ablation, Vascular Surgery GI Surgical History: Reports: Cholecystectomy Female Surgical History: Reports: Hysterectomy, Salpingo-Oophorectomy, Tubal Ligation Neurological Surgical History: Reports: Lumbar Spine Musculoskeletal Surgical History: Reports: Knee Replacement, Shoulder Surgery Social & Family History - Tobacco Use Smoking Status *Q: Unknown Ever Smoked (Nonsmoker) - Caffeine Use Caffeine Use: Reports: Tea Caffeine Use Comment: Diet Mt Dew - Alcohol Use Alcohol Use History: No - Living Situation & Occupation Living situation: Reports: , Assisted Living ED ROS GENERAL - Review of Systems Review Of Systems: See Below Constitutional: Reports: Weakness, Fatigue HEENT: Reports: No Symptoms Respiratory: Reports: Shortness of Breath, Wheezing, Cough Cardiovascular: Reports: No Symptoms GI/Abdominal: Reports: Other (Abdominal swelling) : Reports: No Symptoms Musculoskeletal: Reports: Other (Leg swelling. Actually total-body swelling.) Skin: Reports: No Symptoms Neurological: Reports: No Symptoms Hematologic/Lymphatic: Reports: Easy Bleeding, Easy Bruising, Other (Patient is on Coumadin) Immunologic: Reports: No Symptoms ED EXAM, GENERAL - Physical Exam Exam: See Below Exam Limited By: No Limitations General Appearance: Alert (But has eyes closed. She does open her eyes spontaneously to voice and converses.), Moderate Distress (to severe with increased work of breathing.), Obese Eye Exam: Bilateral Eye: EOMI, Normal Inspection, PERRL Ears: Normal External Exam Ear Exam: Bilateral Ear: Auricle Normal Nose: Normal Inspection, Normal Mucosa, No Blood Throat/Mouth: Normal Voice, No Airway Compromise Head: Atraumatic, Normocephalic Neck: Normal Inspection, Supple, Non-Tender, Full Range of Motion, Other ( Patient's body habitus precludes accurate assessment of JVD.) Respiratory/Chest: Chest Non-Tender, Respiratory Distress, Rales, Wheezing, Accessory Muscle Use, Other (Increased respiratory rate) Cardiovascular: Normal Peripheral Pulses, Regular Rate, Rhythm, No Murmur (But heart sounds are distant) Peripheral Pulses: 2+: Radial (L), Radial (R), Dorsalis Pedis (L), Dorsalis Pedis (R) GI/Abdominal: Normal Bowel Sounds, Soft, Non-Tender, No Mass, Other ( Protuberant. Nontender.) Back Exam: Normal Inspection Extremities: Normal Range of Motion, Non-Tender, Normal Capillary Refill, Pedal Edema (1+ bilaterally) Neurological: Oriented, CN II-XII Intact, Normal Cognition, Other (She is somewhat sleepy but awakens to voice and responds appropriately to voice) Skin Exam: Warm, Dry, Intact, Normal Color, No Rash EKG INTERPRETATION EKG Date: 06/28/19 Time: 11:30 Rhythm: A-Fib Rate (Beats/Min): 64 [place]: RAD-Right [place] Deviation P-Wave: Absent QRS: RBBB (Poor R-wave progression.) ST-T: Other (Diffuse nonspecific ST-T changes.) QT: Prolonged Comparison: No Change (No change from EKG performed on 03/11/2019.) Course - Vital Signs Last Recorded V/S: Last Vital Signs Temp 36.1 C 06/28/19 11:11 Pulse 70 06/28/19 11:11 Resp 24 H 06/28/19 11:11 BP 153/88 H 06/28/19 11:11 Pulse Ox 100 06/28/19 11:11 - Orders/Labs/Meds Orders: Active Orders 24 hr Category Date Time Status Accu Check [Blood Glucose Check, Bedside] [RC] ONETIME Care 06/28/19 12:59 Active BIPAP Adult [RT BiPAP/CPAP] [RC] ASDIRECTED Care 06/28/19 12:54 Active EKG Documentation Completion [RC] ASDIRECTED Care 06/28/19 11:22 Active Insert Marie Catheter [Insert Urinary Catheter] [OM.PC] Care 06/28/19 11:30 Ordered Q24H RT Aerosol Therapy [RC] ASDIRECTED Care 06/28/19 11:34 Active Urinary Catheter Assessment [RC] QSHIFT Care 06/28/19 11:22 Active Chest 1V Frontal [CR] Stat Exams 06/28/19 11:21 Taken Sodium Chloride 0.9% [Normal Saline] 1,000 ml Med 06/28/19 13:30 Active IV ASDIRECTED Sodium Chloride 0.9% [Saline Flush] Med 06/28/19 11:21 Active 10 ml FLUSH ASDIRECTED PRN Peripheral IV Insertion Adult [OM.PC] Routine Oth 06/28/19 11:21 Ordered EKG 12 Lead [EK] Routine Ther 06/28/19 11:21 Ordered Medication Orders Sodium Chloride (Normal Saline) 1,000 mls @ 0 mls/hr IV ASDIRECTED JESUS Stop: 07/02/19 13:30 Sodium Chloride (Saline Flush) 10 ml FLUSH ASDIRECTED PRN PRN Reason: Keep Vein Open Last Admin: 06/28/19 12:10 Dose: 10 ml Admin: 06/28/19 11:45 Dose: 10 ml Labs: Laboratory Tests 06/28/19 06/28/1906/28/19 Range/Units 11:20 11:20 11:20 WBC 11.9 (4.5-12.0) X10-3/uL RBC 4.10 (3.23-5.20) x10(6)uL Hgb 11.2 L (11.5-15.5) g/dL Hct 35.6 (30.0-51.3) % MCV 86.8 (80-96) fL MCH 27.4 L (27.7-33.6) pg MCHC 31.6 L (32.2-35.4) g/dL RDW 17.6 H (11.5-15.5) % Plt Count 200 (125-369) X10(3)uL MPV 8.7 (7.4-10.4) fL Neut % (Auto) 80.8 (46-82) % Lymph % (Auto) 10.1 L (13-37) % [place] % (Auto) 6.9 (4-12) % Eos % (Auto) 1 (1.0-5.0) % Baso % (Auto) 1 (0-2) % Neut # (Auto) 9.7 H (1.6-8.3) # Lymph # (Auto) 1.2 (0.6-5.0) # [place] # (Auto) 0.8 (0.0-1.3) # Eos # (Auto) 0.1 (0.0-0.8) # Baso # (Auto) 0.1 (0.0-0.2) # PT (8.7-11.1) INR (0.89-1.13) POC VBG pH (7.31-7.41) POC VBG pCO2 (41-51) mmHG POC VBG HCO3 (23-28) mmol/L POC VBG Total CO2 (24-29) mmol/L POC VBG Base Excess (-2-3) mmol/L Sodium 140 (135-145) mmol/L Potassium 5.5 H D (3.5-5.3) mmol/L Chloride 96 L D (100-110) mmol/L Carbon Dioxide 45 H* (21-32) mmol/L BUN 83 H D (7-18) mg/dL Creatinine 2.3 H* (0.55-1.02) mg/dL Est Cr Clr Drug Dosing TNP Estimated GFR (MDRD) 21 L (>60) BUN/Creatinine Ratio 36.1 H (9-20) Glucose 39 L* D (80-116) mg/dL Calcium 10.6 H (8.6-10.2) mg/dL Magnesium 3.2 H* (1.8-2.5) mg/dL Total Bilirubin 0.6 (0.1-1.3) mg/dL AST 39 H D (5-25) IU/L ALT 29 (12-36) U/L Alkaline Phosphatase 190 H (56-112) IU/L Troponin I 0.074 H* (<0.017-0.056) ng/mL C-Reactive Protein < 0.2 L (0.5-0.9) mg/dL NT-Pro-B Natriuret Pep 3513 H* (<=450) pg/mL Total Protein 7.8 (6.0-8.0) g/dL Albumin 3.7 (3.2-4.6) g/dL Globulin 4.1 g/dL Albumin/Globulin Ratio 0.9 Urine Color (YELLOW) Urine Appearance (CLEAR) Urine pH (5.0-6.5) Ur Specific [place] (1.010-1.025) Urine Protein (NEGATIVE) mg/dL Urine Glucose (UA) (NORMAL) mg/dL Urine Ketones (NEGATIVE) mg/dL Urine Occult Blood (NEGATIVE) Urine Nitrite (NEGATIVE) Urine Bilirubin (NEGATIVE) Urine Urobilinogen (NEGATIVE) mg/dL Ur Leukocyte Esterase (NEGATIVE) Urine WBC (0-5) Ur Squamous Epith Cells (NS,R,O) Urine Bacteria (NS) 06/28/19 06/28/19 06/28/19 Range/Units 11:50 11:56 12:25 WBC (4.5-12.0) X10-3/uL RBC (3.23-5.20) x10(6)uL Hgb (11.5-15.5) g/dL Hct (30.0-51.3) % MCV (80-96) fL MCH (27.7-33.6) pg MCHC (32.2-35.4) g/dL RDW (11.5-15.5) % Plt Count (125-369) X10(3)uL MPV (7.4-10.4) fL Neut % (Auto) (46-82) % Lymph % (Auto) (13-37) % [place] % (Auto) (4-12) % Eos % (Auto) (1.0-5.0) % Baso % (Auto) (0-2) % Neut # (Auto) (1.6-8.3) # Lymph # (Auto) (0.6-5.0) # [place] # (Auto) (0.0-1.3) # Eos # (Auto) (0.0-0.8) # Baso # (Auto) (0.0-0.2) # PT 30.7 H (8.7-11.1) INR 3.20 H (0.89-1.13) POC VBG pH 7.29 L (7.31-7.41) POC VBG pCO2 94.6 H (41-51) mmHG POC VBG HCO3 45.1 H (23-28) mmol/L POC VBG Total CO2 48 H (24-29) mmol/L POC VBG Base Excess 18 H (-2-3) mmol/L Sodium (135-145) mmol/L Potassium (3.5-5.3) mmol/L Chloride (100-110) mmol/L Carbon Dioxide (21-32) mmol/L BUN (7-18) mg/dL Creatinine (0.55-1.02) mg/dL Est Cr Clr Drug Dosing Estimated GFR (MDRD) (>60) BUN/Creatinine Ratio (9-20) Glucose (80-116) mg/dL Calcium (8.6-10.2) mg/dL Magnesium (1.8-2.5) mg/dL Total Bilirubin (0.1-1.3) mg/dL AST (5-25) IU/L ALT (12-36) U/L Alkaline Phosphatase (56-112) IU/L Troponin I (<0.017-0.056) ng/mL C-Reactive Protein (0.5-0.9) mg/dL NT-Pro-B Natriuret Pep (<=450) pg/mL Total Protein (6.0-8.0) g/dL Albumin (3.2-4.6) g/dL Globulin g/dL Albumin/Globulin Ratio Urine Color Yellow (YELLOW) Urine Appearance Slightly cloudy (CLEAR) Urine pH 5.0 (5.0-6.5) Ur Specific [place] 1.015 (1.010-1.025) Urine Protein 30 H (NEGATIVE) mg/dL Urine Glucose (UA) Normal (NORMAL) mg/dL Urine Ketones Negative (NEGATIVE) mg/dL Urine Occult Blood Negative (NEGATIVE) Urine Nitrite Negative (NEGATIVE) Urine Bilirubin Negative (NEGATIVE) Urine Urobilinogen Normal (NEGATIVE) mg/dL Ur Leukocyte Esterase Negative (NEGATIVE) Urine WBC 0-5 (0-5) Ur Squamous Epith Cells Few H (NS,R,O) Urine Bacteria Few H (NS) 06/28/19 Range/Units 12:36 WBC (4.5-12.0) X10-3/uL RBC (3.23-5.20) x10(6)uL Hgb (11.5-15.5) g/dL Hct (30.0-51.3) % MCV (80-96) fL MCH (27.7-33.6) pg MCHC (32.2-35.4) g/dL RDW (11.5-15.5) % Plt Count (125-369) X10(3)uL MPV (7.4-10.4) fL Neut % (Auto) (46-82) % Lymph % (Auto) (13-37) % [place] % (Auto) (4-12) % Eos % (Auto) (1.0-5.0) % Baso % (Auto) (0-2) % Neut # (Auto) (1.6-8.3) # Lymph # (Auto) (0.6-5.0) # [place] # (Auto) (0.0-1.3) # Eos # (Auto) (0.0-0.8) # Baso # (Auto) (0.0-0.2) # PT (8.7-11.1) INR (0.89-1.13) POC VBG pH 7.31 (7.31-7.41) POC VBG pCO2 86.6 H (41-51) mmHG POC VBG HCO3 43.2 H (23-28) mmol/L POC VBG Total CO2 46 H (24-29) mmol/L POC VBG Base Excess 17 H (-2-3) mmol/L Sodium (135-145) mmol/L Potassium (3.5-5.3) mmol/L Chloride (100-110) mmol/L Carbon Dioxide (21-32) mmol/L BUN (7-18) mg/dL Creatinine (0.55-1.02) mg/dL Est Cr Clr Drug Dosing Estimated GFR (MDRD) (>60) BUN/Creatinine Ratio (9-20) Glucose (80-116) mg/dL Calcium (8.6-10.2) mg/dL Magnesium (1.8-2.5) mg/dL Total Bilirubin (0.1-1.3) mg/dL AST (5-25) IU/L ALT (12-36) U/L Alkaline Phosphatase (56-112) IU/L Troponin I (<0.017-0.056) ng/mL C-Reactive Protein (0.5-0.9) mg/dL NT-Pro-B Natriuret Pep (<=450) pg/mL Total Protein (6.0-8.0) g/dL Albumin (3.2-4.6) g/dL Globulin g/dL Albumin/Globulin Ratio Urine Color (YELLOW) Urine Appearance (CLEAR) Urine pH (5.0-6.5) Ur Specific [place] (1.010-1.025) Urine Protein (NEGATIVE) mg/dL Urine Glucose (UA) (NORMAL) mg/dL Urine Ketones (NEGATIVE) mg/dL Urine Occult Blood (NEGATIVE) Urine Nitrite (NEGATIVE) Urine Bilirubin (NEGATIVE) Urine Urobilinogen (NEGATIVE) mg/dL Ur Leukocyte Esterase (NEGATIVE) Urine WBC (0-5) Ur Squamous Epith Cells (NS,R,O) Urine Bacteria (NS) Meds: Medications Generic Name Dose Route Start Last Admin Trade Name Freq PRN Reason Stop Dose Admin Sodium Chloride 1,000 mls @ 0 mls/hr 06/28/19 13:30 Normal Saline IV 07/02/19 13:30 ASDIRECTED JESUS KVO Sodium Chloride 10 ml 06/28/19 11:21 06/28/19 12:10 Saline Flush FLUSH 10 ml ASDIRECTED PRN Administration Keep Vein Open Discontinued Medications Generic Name Dose Route Start Last Admin Trade Name Freq PRN Reason Stop Dose Admin Albuterol 2.5 mg 06/28/19 11:33 06/28/19 11:45 Proventil Neb Soln NEB 06/28/19 11:34 2.5 mg ONETIME ONE Administration Albuterol Confirm 06/28/19 11:37 06/28/19 12:11 Proventil Neb Soln Administered 06/28/19 11:38 Not Given Dose 2.5 mg .ROUTE .STK-MED ONE Albuterol/Ipratropium 3 ml 06/28/19 11:33 06/28/19 11:45 Duoneb 3.0-0.5 Mg/3 Ml NEB 06/28/19 11:34 3 ml ONETIME ONE Administration Albuterol/Ipratropium Confirm 06/28/19 11:37 06/28/19 12:11 Duoneb 3.0-0.5 Mg/3 Ml Administered 06/28/19 11:38 Not Given Dose 3 ml .ROUTE .STK-MED ONE Dextrose/Water 50 ml 06/28/19 12:06 06/28/19 12:08 Dextrose 50% In Water IVPUSH 06/28/19 12:07 50 ml ONETIME ONE Administration Furosemide 100 mg 06/28/19 11:23 06/28/19 11:45 Lasix IVPUSH 06/28/19 11:24 100 mg NOW ONE Administration Methylprednisolone Sodium Succinate 125 mg 06/28/19 11:33 06/28/19 11:43 Solu-Medrol IVPUSH 06/28/19 11:34 125 mg ONETIME ONE Administration Methylprednisolone Sodium Succinate Confirm 06/28/19 11:37 06/28/19 12:11 Solu-Medrol Administered 06/28/19 11:38 Not Given Dose 125 mg .ROUTE .STK-MED ONE - Radiology Interpretation Free Text/Narrative:: Portable chest x-ray showed decompensated CHF with bilateral pleural effusions. - Re-Assessments/Exams Free Text/Narrative Re-Assessment/Exam: 06/28/19 11:35: Patient's O2 saturation is 97-99% on the 5 L/m via nasal cannula that we cut her down to from the 100% nonrebreather. We will attempt to wean it down from here. EKG is unchanged from 03/11/2019. Patient will be given Lasix 100 mg IV. In addition to this I will also give her a DuoNeb/albuterol neb combination and Solu-Medrol 125 mg IV. A Marie catheter is being placed to monitor urine output. 06/28/19 12:11: Patient's venous PCO2 was 95 with a pH of 7.29. She is currently down to 3 L/m via nasal cannula with an O2 saturation of 97% and she has gotten a DuoNeb/albuterol neb combination. She is more awake. I will repeat her venous blood gas at 12:20 PM. Her blood sugar was also 39 and she is being given D50 one amp IV. 06/28/19 12:55: Repeat venous blood gas shows a PCO2 of 87 and a pH of 7.31. She is more awake and conversant but she tends to ramble when she speaks and goes to sleep when speaking. We are going to place her on BiPAP and she will need admission. Because of her hypoxic and hypercapnic respiratory failure associated with a COPD exacerbation and CHF decompensation, she will need for close monitoring and pulmonary/critical care services available at [facility]. I discussed this with the patient and her daughter. The patient would want me to discuss her case with the doctors at [facility] in [place]. She would be in agreement with the plans for transfer to [facility] in [place]. 06/28/19 13:09: Patient's repeat blood sugar was 116. We are placing the patient on BiPAP now. I discussed the patient's case with Dr. Agee, ED physician at [facility] in [place], and he will accept the patient in transfer. We will call [facility] to see if they can transport the patient on BiPAP. 06/28/19 13:26: Patient is on BiPAP at 12/5 with an FiO2 of 40% and she seems to be tolerating it well. Her O2 saturations are 95-97%. [facility] will be able to transfer the patient on BiPAP. We will continue close monitoring. She is putting out good urine now. 06/28/19 14:10: Ground EMS crew has arrived and are preparing to transport the patient. The patient has remained vitally stable. She is still tolerating the BiPAP well. She is awake, alert and responsive. Her respiratory rate is still in the upper 20s, however. Patient will be transported to [facility] via ambulance on BiPAP. Departure - Departure Time of Disposition: 14:25 Disposition: DC/Tfer to Acute Hospital 02 Condition: Critical Clinical Impression: Acute respiratory failure with hypoxia and hypercapnia, Decompensated heart failure, COPD exacerbation, Supratherapeutic INR, Hypermagnesemia Diabetes mellitus type 2, uncontrolled Qualifiers: Glycemic state: with hypoglycemia Coma presence: unspecified whether coma present Qualified Code(s): E11.649 - Type 2 diabetes mellitus with hypoglycemia without coma - Discharge Information Referrals: Guru Tucker MD [Primary Care Provider] - Critical Care Note - Critical Care Note Total Time (mins): 130 Comments: Total critical care time spent with patient was 130 minutes. - My Orders Last 24 Hours: My Active Orders 06/28/19 11:21 Chest 1V Frontal [CR] Stat Sodium Chloride 0.9% [Saline Flush] 10 ml FLUSH ASDIRECTED PRN Peripheral IV Insertion Adult [OM.PC] Routine EKG 12 Lead [EK] Routine 06/28/19 11:22 EKG Documentation Completion [RC] ASDIRECTED Urinary Catheter Assessment [RC] QSHIFT 06/28/19 11:30 Insert Marie Catheter [Insert Urinary Catheter] [OM.PC] Q24H 06/28/19 11:34 RT Aerosol Therapy [RC] ASDIRECTED 06/28/19 12:54 BIPAP Adult [RT BiPAP/CPAP] [RC] ASDIRECTED 06/28/19 12:59 Accu Check [Blood Glucose Check, Bedside] [RC] ONETIME 06/28/19 13:30 Sodium Chloride 0.9% [Normal Saline] 1,000 ml IV ASDIRECTED - Assessment/Plan Last 24 Hours: My Active Orders 06/28/19 11:21 Chest 1V Frontal [CR] Stat Sodium Chloride 0.9% [Saline Flush] 10 ml FLUSH ASDIRECTED PRN Peripheral IV Insertion Adult [OM.PC] Routine EKG 12 Lead [EK] Routine 06/28/19 11:22 EKG Documentation Completion [RC] ASDIRECTED Urinary Catheter Assessment [RC] QSHIFT 06/28/19 11:30 Insert Marie Catheter [Insert Urinary Catheter] [OM.PC] Q24H 06/28/19 11:34 RT Aerosol Therapy [RC] ASDIRECTED 06/28/19 12:54 BIPAP Adult [RT BiPAP/CPAP] [RC] ASDIRECTED 06/28/19 12:59 Accu Check [Blood Glucose Check, Bedside] [RC] ONETIME 06/28/19 13:30 Sodium Chloride 0.9% [Normal Saline] 1,000 ml IV ASDIRECTED
[2019-06-28] MEDS ORDERED: Furosemide 100 MG/10 ML SDV IVPUSH ONE (11:23)
[2019-06-28] MEDS ORDERED: methylPREDNISolone Sodium Succinate 125 MG/2 ML SDV IVPUSH ONE (11:33)
[2019-06-28] MEDS ORDERED: Albuterol 0.083% 2.5 MG/3 ML Neb Soln NEB ONE (11:33)
[2019-06-28] MEDS ORDERED: Albuterol/Ipratropium 3.0-0.5 MG/3 ML Neb Soln NEB ONE (11:33)
[2019-06-28] MEDS ORDERED: Albuterol 0.083% 2.5 MG/3 ML Neb Soln ONE (11:37)
[2019-06-28] MEDS ORDERED: Albuterol/Ipratropium 3.0-0.5 MG/3 ML Neb Soln ONE (11:37)
[2019-06-28] MEDS ORDERED: methylPREDNISolone Sodium Succinate 125 MG/2 ML SDV ONE (11:37)
[2019-06-28] MEDS: Sodium Chloride 0.9% 10 ML Syringe FLUSH PRN ×2 (11:45→12:10)
[2019-06-28] MEDS ORDERED: 50% Dextrose in Water 50 ML Syringe IVPUSH ONE (12:06)
[2019-06-28 12:23] VITALS: BP 153/88; PULSE 70
[2019-06-28] MEDS ORDERED: Sodium Chloride 0.9% 1,000 ML IV SCH (13:30)
--- NOTE | 2019-06-29 14:04 | CR ---
INDICATION: Shortness of breath, low oxygen saturations. CHEST: An AP upright portable view of the chest, 06/28/19, was compared with and 08/01/17. Bilateral parenchymal changes are noted that may be associated with pleural effusions. Atelectasis and pneumonia could be present bilaterally in the mid to lower lung field on the left and lower lung field on the right. The heart is enlarged. The aorta is tortuous and calcified. A double shadow is again noted at the aortic arch of questionable significance, making it difficult to exclude a mass in that area. Pulmonary vasculature appears prominent and congested with interstitial markings heavy, compatible with CHF and interstitial lung edema. A mild degree of acute alveolar lung edema could also be present. IMPRESSION: Findings are felt to be most compatible with ASHD, cardiomegaly with CHF and lung edema. Additional parenchymal changes are noted in the lower lung contreras and left mid lung field, which may be atelectatic in nature or possibly due to pneumonia with atelectasis and/or fibrosis. MTDD
== END 2019-06-28 14:20 ==
LOC: FB.ED 11:11
DX: J96.02 Acute respiratory failure with hypercapnia (principal); J96.01 Acute respiratory failure with hypoxia; I13.0 Hypertensive heart and chronic kidney disease with heart failure and stage 1 through stage 4 chronic kidney disease, or unspecified chronic kidney disease; E11.22 Type 2 diabetes mellitus with diabetic chronic kidney disease; N18.9 Chronic kidney disease, unspecified; I50.9 Heart failure, unspecified; J44.1 Chronic obstructive pulmonary disease with (acute) exacerbation; E83.41 Hypermagnesemia; E11.649 Type 2 diabetes mellitus with hypoglycemia without coma; R79.1 Abnormal coagulation profile; E11.40 Type 2 diabetes mellitus with diabetic neuropathy, unspecified; E78.00 Pure hypercholesterolemia, unspecified; K21.9 Gastro-esophageal reflux disease without esophagitis; F41.9 Anxiety disorder, unspecified; F32.9 Major depressive disorder, single episode, unspecified; Z88.6 Allergy status to analgesic agent; Z88.8 Allergy status to other drugs, medicaments and biological substances; Z88.0 Allergy status to penicillin; Z79.899 Other long term (current) drug therapy; Z79.82 Long term (current) use of aspirin; Z79.4 Long term (current) use of insulin; Z79.01 Long term (current) use of anticoagulants
CPT/HCPCS: 36415; 51702; 71045; 80053; 81001; 82803; 82962; 83735; 83880; 84484; 85025; 85610; 86140; 93005; 94640; 94660; 96374; 96375; 99282; 99285-25; 99291; 99292; A4216; J1940; J2930; J7620-GY